=== PATIENT | female | born 1985 | race Caucasian/White ===

== ENCOUNTER 2020-12-29 10:35 | Outpatient (REF) | payer OTHER, SELFPAY ==
[2020-12-29 11:39] LABS: MANUAL DIFF FLAG NO
[2020-12-29 11:44] LABS: Basophils Percent Auto 0.2 % (0-2); Eosinophils Absolute Auto 0.1 X10*3/uL (0.0-0.4); Eosinophils Percent Auto 1.1 % (0-4); Hematocrit 41.9 % (37-47); Hemoglobin 13.5 g/dl (12.0-16.0); Imm Gran Abs Auto 0.06 X10*3/uL (0.00-0.03); Imm Gran Pct Auto 0.5 % (0.0-0.4); Lymphocytes Absolute Auto 2.4 X10*3/uL (1.2-4.9); Lymphocytes Percent Auto 19.7 % (20-40); Mean Corpuscular HGB Conc 32.2 g/dl (31.0-35.0); Mean Corpuscular Hemoglobin 29.6 pg (27.0-33.0); Mean Corpuscular Volume 91.9 fL (80-98); Mean Platelet Volume 10.1 fL (9.4-12.3); Monocytes Absolute Auto 1.2 X10*3/uL (0.1-1.2); Monocytes Percent Auto 9.5 % (2-11); Neutrophils Absolute Auto 8.4 X10*3/uL (2.0-8.3); Platelet Count 311 X10*3/uL (160-400); Red Blood Count 4.56 X10*6/uL (4.20-5.50); Red Cell Distribution Width 13.5 % (11.0-16.0); White Blood Count 12.2 X10*3/uL (4.8-10.8)
[2020-12-29 11:58] LABS: Glucose Urine UA NEG (NEG); Leukocyte Esterase Urine NEG (NEG); Nitrite Urine NEG (NEG); PH 5.5 (5.0-8.0); Specific Gravity - Urine 1.025 (1.005-1.025); Urine Blood 1+ (NEG); Urine Ketones NEG (NEG); Urine Protein NEG (NEG-TRACE)
[2020-12-29 11:59] LABS: Appearance Urine HAZY; Color Urine YELLOW
[2020-12-29 12:12] LABS: Bacteria Urine 1+ /LPF; Squamous Epithelial Cell Urine 1+ /LPF; WBC Urine 0-2 /HPF (0-4)
[2020-12-29 12:21] LABS: Creatinine Urine 228.65 mg/dL; Microalbum/Creatinine Ratio Ur 26.6 ug/mg cr; Protein/Creatinine Ratio, Ur 0.07 (<0.2); Total Protein Urine Random 17 mg/dL (<12)
[2020-12-29 12:40] LABS: Anion Gap 12 (12-20); Blood Urea Nitrogen 10 mg/dL (9-16); Calcium 8.7 mg/dL (8.4-10.2); Carbon Dioxide 30 mmol/L (22-29); Chloride 102 mmol/L (96-108); Estimated Glomerular Filt Rate > 60; Potassium 3.6 mmol/L (3.3-5.1); Sodium 140 mmol/L (135-145)
[2020-12-31 04:10] LABS: ~Hepatitis B Surface Antibody REACTIVE (Nonreactive)
[2020-12-31 04:20] LABS: HBsAGNum1 0.28 S/CO (0.00-0.99); Hepatitis B Surface Antigen Negative (Negative); ~HepC Num1 0.09 S/CO (0.00-0.79); ~Hepatitis C Antibody Nonreactive (Nonreactive)
[2020-12-31 14:12] LABS: Complement C3 186 mg/dL (83-193)
[2020-12-31 15:22] LABS: Prot Elec - Albumin 3.5 g/dL (3.8-4.8); Prot Elec - Alpha1 0.4 g/dL (0.2-0.3); Prot Elec - Alpha2 0.9 g/dL (0.5-0.9); Prot Elec - Beta 1 0.4 g/dL (0.4-0.6); Prot Elec - Beta 2 0.4 g/dL (0.2-0.5); Prot Elec - Gamma 1.3 g/dL (0.8-1.7); Prot Elec - Total Protein 6.9 g/dL (6.1-8.1)
[2021-01-01 09:56] LABS: Anti Nuclear Antibody Screen NEGATIVE (NEGATIVE)
[2021-01-01 13:32] LABS: Kappa Light Chain, Free Serum 20.3 mg/L (3.3-19.4); Kappa/Lambda Lt Ch Free Ratio 0.93 (0.26-1.65); Lambda Light Chain, Free Serum 21.9 mg/L (5.7-26.3)
[2021-01-03 14:02] LABS: Myeloperoxidase Antibody <1.0 AI; Proteinase 3 PR3 Antibodies <1.0 AI
== END 2020-12-29 10:36 | disposition home or self-care (01) ==
LOC: HO.LAB 10:35
PROVIDERS: PCP Family Medicine; Visit Provider Internal Medicine Nephrology
DX: K76.0 Fatty (change of) liver, not elsewhere classified (principal); G13.0 Paraneoplastic neuromyopathy and neuropathy; D69.0 Allergic purpura; N02.8 Recurrent and persistent hematuria with other morphologic changes
CPT/HCPCS: 36415; 80051; 81001; 82043; 82310; 82565; 83520; 83883; 84155; 84156; 84165; 84520; 85025; 86021; 86038; 86039; 86160; 86706; 86803; 87086; 87340

== ENCOUNTER 2021-01-18 13:23 | Outpatient (REF) | payer OTHER, SELFPAY ==
[2021-01-18 14:15] LABS: Glucose Urine UA NEG (NEG); Leukocyte Esterase Urine NEG (NEG); Nitrite Urine NEG (NEG); Specific Gravity - Urine 1.025 (1.005-1.025); Urine Blood 1+ (NEG); Urine Ketones NEG (NEG); Urine Protein NEG (NEG-TRACE)
[2021-01-18 14:17] LABS: Appearance Urine CLEAR; Color Urine YELLOW
[2021-01-18 14:34] LABS: Bacteria Urine TRACE /LPF; Squamous Epithelial Cell Urine 1+ /LPF; WBC Urine 0 /HPF (0-4)
[2021-01-18 14:55] LABS: Alanine Aminotransferase 16 U/L (0-31); Albumin Level 3.5 g/dL (3.5-5.0); Alkaline Phosphatase 81 U/L (39-117); Anion Gap 12 (12-20); Aspartate Amino Transferase 13 U/L (5-31); Bilirubin Total 0.4 mg/dL (0.0-1.0); Blood Urea Nitrogen 8 mg/dL (9-16); Calcium 8.5 mg/dL (8.4-10.2); Carbon Dioxide 28 mmol/L (22-29); Chloride 104 mmol/L (96-108); Estimated Glomerular Filt Rate > 60; Glucose Random 99 mg/dL (60-115); Potassium 4.1 mmol/L (3.3-5.1); Sodium 140 mmol/L (135-145); Total Protein 6.7 g/dL (6.5-8.0)
== END 2021-01-18 13:24 | disposition home or self-care (01) ==
LOC: HO.LAB 13:23
PROVIDERS: PCP Family Medicine; Visit Provider Family Medicine
DX: N02.8 Recurrent and persistent hematuria with other morphologic changes (principal)
CPT/HCPCS: 36415; 80053; 81001

== ENCOUNTER 2021-02-08 12:17 | Outpatient (REF) | payer OTHER, MEDICAID, SELFPAY ==
[2021-02-08 13:31] LABS: MANUAL DIFF FLAG NO
[2021-02-08 13:33] LABS: Basophils Percent Auto 0.2 % (0-2); Eosinophils Absolute Auto 0.1 X10*3/uL (0.0-0.4); Eosinophils Percent Auto 1.1 % (0-4); Hematocrit 43.7 % (37-47); Hemoglobin 13.5 g/dl (12.0-16.0); Imm Gran Abs Auto 0.05 X10*3/uL (0.00-0.03); Imm Gran Pct Auto 0.5 % (0.0-0.4); Lymphocytes Absolute Auto 2.9 X10*3/uL (1.2-4.9); Lymphocytes Percent Auto 27.7 % (20-40); Mean Corpuscular HGB Conc 30.9 g/dl (31.0-35.0); Mean Corpuscular Volume 93.8 fL (80-98); Mean Platelet Volume 9.8 fL (9.4-12.3); Monocytes Absolute Auto 0.9 X10*3/uL (0.1-1.2); Monocytes Percent Auto 8.5 % (2-11); Neutrophils Absolute Auto 6.5 X10*3/uL (2.0-8.3); Platelet Count 315 X10*3/uL (160-400); Red Blood Count 4.66 X10*6/uL (4.20-5.50); Red Cell Distribution Width 12.8 % (11.0-16.0); White Blood Count 10.4 X10*3/uL (4.8-10.8)
[2021-02-08 14:02] LABS: Alanine Aminotransferase 20 U/L (0-31); Albumin Level 3.7 g/dL (3.5-5.0); Alkaline Phosphatase 89 U/L (39-117); Anion Gap 15 (12-20); Aspartate Amino Transferase 16 U/L (5-31); Bilirubin Total 0.3 mg/dL (0.0-1.0); Blood Urea Nitrogen 8 mg/dL (9-16); Carbon Dioxide 27 mmol/L (22-29); Chloride 103 mmol/L (96-108); Estimated Glomerular Filt Rate > 60; Glucose Random 93 mg/dL (60-115); Potassium 4.1 mmol/L (3.3-5.1); Sodium 141 mmol/L (135-145); Total Protein 7.1 g/dL (6.5-8.0)
[2021-02-08 14:09] LABS: Glucose Urine UA NEG (NEG); Leukocyte Esterase Urine TRACE (NEG); Nitrite Urine NEG (NEG); PH 5.5 (5.0-8.0); Specific Gravity - Urine 1.025 (1.005-1.025); UACC Culture Trigger YES; Urine Blood 1+ (NEG); Urine Ketones NEG (NEG); Urine Protein NEG (NEG-TRACE)
[2021-02-08 14:15] LABS: Appearance Urine CLOUDY; Color Urine YELLOW
[2021-02-08 14:24] LABS: Bacteria Urine 2+ /LPF; Squamous Epithelial Cell Urine 3+ /LPF
== END 2021-02-08 12:18 | disposition home or self-care (01) ==
LOC: HO.LAB 12:17
PROVIDERS: PCP Family Medicine; Visit Provider Family Medicine
DX: D69.0 Allergic purpura (principal)
CPT/HCPCS: 36415; 80053; 81001; 81003; 85025; 87086

== ENCOUNTER 2021-03-13 07:42 | Outpatient (REF) | payer OTHER, MEDICAID, SELFPAY | END 2021-03-13 07:43 | disposition home or self-care (01) | LOC: HO.HOSX 07:42 | PROVIDERS: Visit Provider Physician Assistant | DX: Z13.89 Encounter for screening for other disorder (principal) ==

== ENCOUNTER 2022-05-27 09:39 | Emergency (ER) | payer OTHER, SELFPAY ==
--- NOTE | ~2022-05-27 | XR_ITS ---
EXAMINATION: XR KNEE, RIGHT CLINICAL INFORMATION: Right knee injury. COMPARISON: None TECHNIQUE: Four views of the right knee. FINDINGS: Minimal tricompartmental degenerative joint changes are seen. There is no acute fracture or dislocation. There is no joint effusion. The soft tissues are unremarkable. XR/XR knee RT 4V IMPRESSION: Minimal tricompartmental degenerative joint changes. No acute abnormality.
[2022-05-27 10:58] VITALS: BP 137/96; PULSE 90; RESP 18; TEMP 35.8; O2SAT 95; BMI 49.4
--- NOTE | 2022-05-27 12:32 | ED_ITS ---
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 Denies symptoms prior to fall including headache, lightheadedness/dizziness, CP/SOB. Denies head trauma or LOC. Has not been ambulatory since the incident. Denies numbness or tingling MD complaint: knee injury and fall Onset (ago): hour(s) Related Data Allergies Allergy/AdvReac Type Severity Reaction Status Date / Time NSAIDS (Non-Steroidal Allergy Unknown Verified 05/27/22 10:57 Anti-Inflamma Review of Systems Review of Systems: Constitutional: No Fever, No Chills ENT/Mouth: No Ear Pain, No Nasal Congestion, No sore throat, No Rhinorrhea, No Swallowing Difficulty Cardiovascular: No Chest Pain, No SOB Respiratory: No Cough, No Sputum, No Wheezing Gastrointestinal: No Nausea, No Vomiting, No Diarrhea, No Constipation, No Abdominal pain Genitourinary: No Dysuria, No Urinary Frequency, No Hematuria, No Urinary Incontinence/retention Musculoskeletal: + joint pain, No Myalgias, + Joint Swelling Skin: No Skin Lesions, No rash Neuro: No Weakness, No Numbness, No Paresthesias Yes all other systems are revi ewed and are negative Constitutional: Constitutional: Reports as per [facility] Past Medical History Attestation statement: The following information was validated with the patient. Social History Social History Advance Directives: No Advance Directives Information Provided: Yes Physical Exam Vital Signs: Vital Signs: Last Vital Signs Temp 96.4 F L 05/27/22 10:58 Pulse 90 05/27/22 10:58 Resp 18 05/27/22 10:58 BP 137/96 H 05/27/22 10:58 Pulse Ox 95 05/27/22 10:58 BMI result Body Mass Index 49.4 Const: General: cooperative, healthy appearing and no acute distress Orientation/consciousness: patient oriented x3 Limitations: no limitations HEENT: Head: Yes normal to inspection and Yes atraumatic Ears: hearing grossly normal bilaterally General nose exam: Normal external nose present Face and sinus: Yes normal facial exam Eyes: General: appearance normal, both eyes and all related structures EOM: EOMs intact bilaterally Neck: Neck: Yes normal visual inspection and Yes no meningeal signs Resp: Effort & Inspection: normal respiratory effort and no respiratory distress Cardio: Rate: regular rate Heart sounds: S1 normal heart sound present and S2 normal heart sound present Peripheral pulses: dorsalis pedis present GI: Inspection: Yes normal to inspection Palpation (GI): Soft to palpation, nontender, no guarding and not rigid Skin: Rashes: no rashes Wounds: no wounds Neuro: General: patient oriented x3, tone normal and no meningeal signs Gait exam (Neuro): Normal gait present Extrem: Other: Right knee with mild swelling and superficial abrasion. Diffusely tender to palpation. Limited flexion secondary to pain. Extension intact. Neurovascular intact distally. No erythema/warmth Course Course Course Narrative: XR knee RT 4V IMPRESSION: Minimal tricompartmental degenerative joint changes. No acute abnormality. > results discussed with patient. Leonardo wrap applied for comfort and stability. Patient also given crutches. Results discussed with patient including worrisome signs and symptoms and strict return precautions, and when to return to the emergency department. They verbalized understanding and feel safe for discharge at this time. 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 On exam vital signs stable, NAD, nontoxic appearing, physical exam as above. Concern for fracture versus sprain. Plan: X-rays Medical Records Attestation: I reviewed the patient's medical records. Lab Data Attestation: I reviewed the patient's lab results. Discharge Plan Discharge Clinical Impression: Injury of knee Patient Disposition: Home, Self-Care Instructions: Crutch Instructions (ED) Additional Instructions: Your x-ray does not show fracture. Wear Leonardo wrap home for comfort and stability. Ice. Elevate. Take Tylenol for pain. Use crutches as needed. Bear weight as tolerated. Please follow-up with her doctor, and orthopedics as needed If pain persists or worsens/becomes unbearable return to the emergency department Referrals: Lito Al MD [Physician] - 1 week (as needed) Physician,Sekou J [Primary Care Provider] - Stand Alone Forms: Work/School Release Interventions: ED Discharge Assessment Last Done: 05/27/22 13:16
[2022-05-27] MEDS: Acetaminophen 325 MG TABLET 650 MG PO (13:11)
--- NOTE | 2022-05-27 13:22 | PC.NURSE ---
case management to meet with patient to assist in ride home
--- NOTE | 2022-05-27 13:53 | MHC.CM.ED ---
Received notification from MARGARITA Palomino that patient will need transportation home. Patient is hearing impaired and currently on crutches due to a knee injury. Tranpsortation booked through [employer]. Transport will be here around 315pm. They will call at [phone] upon arrival. Patient will need to get to vehicle at that time. Georgette AVILA aware. Continue to monitor for d/c needs.
== END 2022-05-27 14:14 | disposition home or self-care (01) ==
PROVIDERS: Emergency Provider Emergency Medicine Emergency Medical Services
DX: S89.91XA Unspecified injury of right lower leg, initial encounter (principal); W19.XXXA Unspecified fall, initial encounter; Y93.9 Activity, unspecified; Y92.9 Unspecified place or not applicable; Y99.9 Unspecified external cause status
CPT/HCPCS: 73564; 99283

== ENCOUNTER → 2022-07-25 12:30 | Outpatient (BNVA) | payer OTHER, MEDICAID, SELFPAY | PROVIDERS: PCP Family Medicine; Visit Provider Physician Assistant | DX: M17.11 Unilateral primary osteoarthritis, right knee (principal) | CPT/HCPCS: 20610; J1040 ==

== ENCOUNTER 2022-08-29 15:00 | Outpatient (RCR) | payer OTHER, MEDICAID, SELFPAY ==
--- NOTE | 2022-08-13 13:28 | MHC.PT.EP ---
[facility] [place] Office [place] Office [place] Office [address] Liz Galvan [address] [phone] F: [phone] F: [phone] F: [phone] F: [phone] Physical Therapy Plan of Care Date of Evaluation: Date of Surgery: N/A Diagnosis: patellefemoral right knee (RC) Assessment: pt is a 36 y/o female presenting to physical therapy w/ referring diagnosis of R patellofemoral pain syndrome. Impairments include pain, decreased range of motion, decreased strength, impaired functional mobility, impaired postural awareness, and altered ambulation mechanics. pt is a good candidate for skilled PT due to age, potential remediation of impairments, typical disease/condition progression and prognosis, comorbidities, and motivation. pt would benefit from skilled PT intervention to provide a tailored strengthening and stretching exercise program, functional training, gait training, postural re-training, neuromuscular re-education, modalities as needed for pain, equipment safety demonstration. Frequency and Duration: The patient will be seen 2x/wk for 4 wks Short Term Goals: pt will be I w/ HEP to promote self-management of condition. pt will improve R quad strength by 1 MMT to promote improved patellar mobility w/ stairs and ambulation. Nursing Home Goals: pt will report a statistically significant improvement in self-reported outcome measure, LEFI, to promote return to PLOF. 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 Treatment Plan: Modalities to reduce pain, spasms and effusion. Manual therapy to restore motion and function. Therapeutic exercise to improve strength and flexibility. Neuromuscular re-education for posture and balance. Therapeutic activities to return to functional activities of daily living. Electronically signed by: Nickie Acosta PT, DPT Please sign and return to therapist. Thank you for your referral.
--- NOTE | 2022-09-15 18:05 | MHC.PT.DC ---
[facility] [place] Office [place] Office [place] Office [address] Liz Galvan [address] [phone] F: [phone] F: [phone] F: [phone] F: [phone] Physical Therapy Discharge Report Diagnosis: patellefemoral right knee (RC) Date of Surgery: N/A Date of Evaluation: 08/13/22 Date of Discharge: 09/15/22 Treatments to Date: 2 Cancellations to Date: 1 No Shows to Date: 3 Discharge Status: Visit Non-compliance Discharge Summary: The patient has had multiple no call/no shows for her scheduled appointments. She has been accommodated multiple times but has still failed to attend her visits. She was called and spoken to using an financial counselor to reschedule and confirm her appointments to ensure they met her availability. She still continued to no show her appointments. In a month's time she has only attended two visits as opposed to the twice a week that was recommended at the initial evaluation. She is being discharged from this physical therapy plan of care due to visit non-compliance. Her current status is unknown. At time of last visit (over two weeks ago) her pain was the same. She is discharged from physical therapy at this time. Electronically signed by: Nickie Acosta PT, DPT Please sign and return to therapist. Thank you for your referral.
== END 2022-09-15 18:05 | disposition home or self-care (01) ==
LOC: HO.PT 15:00
PROVIDERS: Visit Provider Physician Assistant
DX: M17.11 Unilateral primary osteoarthritis, right knee (principal)
CPT/HCPCS: 97110; 97140; 97162

== ENCOUNTER → 2023-03-04 12:26 | Outpatient (BNVA) | payer OTHER, MEDICAID, SELFPAY | PROVIDERS: PCP Family Medicine; Visit Provider Physician Assistant | DX: M17.0 Bilateral primary osteoarthritis of knee (principal); D69.0 Allergic purpura | CPT/HCPCS: 20610; 99212; J1040 ==

== ENCOUNTER 2024-01-29 11:34 | Outpatient (REF) | payer OTHER, MEDICAID, SELFPAY ==
[2024-01-29 14:26] LABS: Alanine Aminotransferase 16 U/L (0-31); Albumin Level 3.6 g/dL (3.5-5.0); Alkaline Phosphatase 80 U/L (39-117); Anion Gap 11 (12-20); Aspartate Amino Transferase 15 U/L (5-31); Bilirubin Direct 0.1 mg/dL (0.0-0.5); Bilirubin Total 0.3 mg/dL (0.0-1.0); Blood Urea Nitrogen 8 mg/dL (9-16); Calcium 9.1 mg/dL (8.4-10.2); Carbon Dioxide 27 mmol/L (22-29); Chloride 105 mmol/L (96-108); Cholesterol 163 mg/dL (<200); Estimated Glomerular Filt Rate > 60; Glucose Random 89 mg/dL (60-115); HDL Cholesterol 45 mg/dL (>40); LDL Cholesterol Calculated 100 mg/dL (<100); Potassium 3.7 mmol/L (3.3-5.1); Sodium 139 mmol/L (135-145); Total Protein 7.7 g/dL (6.5-8.0); Triglycerides 90 mg/dL (<150); Vitamin D 25-OH Total 35.4 ng/mL (>30)
[2024-01-29 14:31] LABS: Creatinine Urine 132.68 mg/dL; Microalbum/Creatinine Ratio Ur 36.9 ug/mg cr (<30)
== END 2024-01-29 11:35 | disposition home or self-care (01) ==
LOC: HO.HHCL 11:34
PROVIDERS: Visit Provider Family Medicine
DX: N02.B9 Other recurrent and persistent immunoglobulin A nephropathy (principal); E78.5 Hyperlipidemia, unspecified; E55.9 Vitamin D deficiency, unspecified
CPT/HCPCS: 36415; 80048; 80061; 80076; 82043; 82306; 82570

== ENCOUNTER 2024-11-25 11:40 | Outpatient (REF) | payer OTHER, MEDICAID, SELFPAY ==
--- OUTSIDE RECORDS SUMMARY | 2024-11-25 12:23 | XMS_ITS | Data Portability ---
Author Organization SANDRA Rojas s [facility] Address [address] [place] [address] Assessment No assessment recorded. Plan of Treatment Reminders Order Date Submit Date Provider Last Modified By Organization Details Last Modified Time Details Appointments None recorded. Lab rapid flu (A+B) 2023 024 BROSELEY [facility] [address], [address] [place], [address], 4 10:56:33 SARS CoV 2 (COVID-19) Ag, QL, IA, upper respiratory specimen 2023 024 BROSELEY _[facility] [address], [address] [place], [address], 4 10:58:20 rapid strep group A, throat 2023 024 BROSELEY _[facility] [address], [address] [place], [address], 4 10:59:14 rapid flu (A+B) 2023 024 MARILYNN _[facility] [address], [address] [place], [address], 4 14:07:09 SARS CoV 2 (COVID-19) Ag, QL, IA, upper respiratory specimen 2023 024 BROSELEY _[facility] [address], [address] [place] [address], [phone], 14:07:22 Referral None recorded. Procedures None recorded. Surgeries None recorded. Imaging None recorded. Medication Orders None recorded. Patient TargetsNo targets recorded. Patient Instructions Encounter Date Encounter Id Patient Instructions Last Modified By Organization Details Last Modified Time 12/01/2023 [id number] sore throat: car e instructions Not available 12/01/2023 19:18:21 upper respirator y infection (cold): care instructions Not available 12/01/2023 19:18:21 02/15/2024 [id number] viral infections : care instructions [email or web address] Not available 02/15/2024 14:18:40 Acute Sinusitis: Care Instructions [email or web address] Not available 02/15/2024 14:18:40 sinusitis, no antibiotics [email or web address] Not available 02/15/2024 14:18:40 cough: care instructions [email or web address] Not available 02/15/2024 14:18:39 Rest. Drink plenty of fluids. Over the counter mucinex may be taken for congestion and tylenol for pain or fever if needed. Take per package instructions. Nutritional supplements that may be beneficial for viral infections include: Vitamin D3, Vitamin C, zinc and elderberry. See printed instructions., Follow-up with your doctor or return to [facility] if your symptoms do not resolve in one week. Seek Emergency Medical evaluation for any worsening symptoms, particularly for high fever, shaking chills, severe headache, rash, stiff neck, shortness of breath, chest pain not associated with cough, abdominal pain, blood in your stool, intractable vomiting. [email or web address] Not available 02/15/2024 14:20:57 Reason for Referral None Reported. Results Created Date Observation Date Name Description Value Unit Range Abnormal Flag Note LastModifiedBy Organization Detail LastModifiedTime 12/07/1912/07/2023 rapid strep group A, throa t Unknown Analyte negati ve Not Available [id number] [place], [address], 12/01/2023 19:04:45 12/07/1912/07/2023 rapid strep group A, throa t Unknown Analyte yes Not Available [facility] [address] [place], [address], 12/01/2023 19:04:45 12/07/19 24 12/07/2023 SARS CoV 2 (COVI D-19) Ag, QL, IA, upper respi rator y speci men Unknown Analyte negati ve Not Available [facility] [address] [place], [address], 12/01/2023 19:04:39 12/07/19 24 12/07/2023 SARS CoV 2 (COVI D-19) Ag, QL, IA, upper respi rator y speci men Unknown Analyte YES Not Available [id number] [place] [address] [address] [place], [address], 12/01/2023 19:04:39 12/07/19 24 12/07/2023 rapid flu (A+B) Unknown Analyte negati ve Not Available [facility] [address] [place], [address], 12/01/2023 19:04:31 12/07/19 24 12/07/2023 rapid flu (A+B) Unknown Analyte negati ve Not Available [facility] [place] [address], [phone], 12/01/2023 19:04:31 12/07/19 24 12/07/2023 rapid flu (A+B) Unknown Analyte yes Not Available [facility] [address] [place], [address], 12/01/2023 19:04:31 02/15/20 24 02/15/2024 SARS CoV 2 (COVI D-19) Ag, QL, IA, upper respi rator y speci men Unknown Analyte negati ve Not Available [facility] [place], [address], 02/15/2024 13:52:18 02/15/20 24 02/15/2024 SARS CoV 2 (COVI D-19) Ag, QL, IA, upper respi rator y speci men Unknown Analyte YES Not Available [id number] [place] [address] [place] [address], [phone], 02/15/2024 13:52:18 02/15/20 24 02/15/2024 rapid flu (A+B) Unknown Analyte negati ve Not Available [address] [address] [place] [address], [address], 02/15/2024 13:52:17 02/15/20 24 02/15/2024 rapid flu (A+B) Unknown Analyte Not Available [id number] [place] [address] [place] [address], [phone], 02/15/2024 13:52:17 02/15/20 24 02/15/2024 rapid flu (A+B) Unknown Analyte negati ve Not Available [address] [facility] [address] [place] [address], [address], 02/15/2024 13:52:17 02/15/20 24 02/15/2024 rapid flu (A+B) Unknown Analyte YES Not Available [id number] [place] [address] [place] [address], [phone], 02/15/2024 13:52:17 Result Notes None recorded. Problems Name Problem SNOMED Code Status Onset Date Resolution Date Notes Provider Name and Address Organization Details Recorded Time Anxiety 45005539 Active SANDRA Elkins - [facility] 12/01/2023 19:00:00 Problem Notes None recorded. Medical Equipment None Reported. Allergies Allergen ID Allergen Name Allergen Category Reaction Reaction Severity Criticality Documentation Date Start Date Code Code System Note Provider Name and Address Organization Details Recorded Time 615449 Non-stero idal anti-infl ammatory agent (product) medicatio n Not available Not available Not available 02/15/2024 13789 005 SNOMED Cate simmons PA - [facility] 13:36:32 Medications Name Sig Start Date Stop Date Status Note LastModified by Organization Details LastModified Time clonazepam active Not Available Not Av ailable Not Available Vitals Date Recorded Body height Provider Name an d Address Organization Details Last Updated DateTime 12/01/2023 162.56 cm Ingrid Ward PA - [facility] 12/01/2023 18:54:08 Date Recorded Body mass index (BMI) Body weight Provider Name and Address Organization Details Last Updated DateTime 12/01/2023 45.5 kg/m2 718080.98 g Ingrid FLORES - [facility] 12/01/2023 18:54:14 Date Recorded Body temperature Provider Name a nd Address Organization Details Last Updated DateTime 12/01/2023 97.9 [degF] Ingrid Ward PA - [facility] 12/01/2023 18:58:06 Date Recorded Pain severity - 0-10 verbal numeric rating [Score] - Reported Provider Name and Address Organization Details Last Updated DateTime 12/01/2023 7 Ingrid Ward PA - [facility] 12/01/2023 18:58:52 Date Recorded Oxygen saturation Oxygen saturation in Arterial blood by Pulse oximetry Provider Name and Address Organization Details Last Updated DateTime 12/01/2023 98 % 98 % Ingrid Ward PA - [facility] 12/01/2023 18:58:54 Date Recorded Heart rate Provider Name an d Address Organization Details Last Updated DateTime 12/01/2023 78 /min Ingrid Ward PA - [facility] 12/01/2023 18:58:58 Date Recorded Respiratory rate Provider Name a nd Address Organization Details Last Updated DateTime 12/01/2023 18 /min Ingrid Ward PA - [facility] 12/01/2023 18:59:01 Date Recorded Body height Provider Name an d Address Organization Details Last Updated DateTime 02/15/2024 162.56 cm Cate FLORES - [facility] 0 02/15/2024 13:35:14 Date Recorded Body mass index (BMI) Body weight Provider Name and Address Organization Details Last Updated DateTime 02/15/2024 45 kg/m2 005337.2 g Cate Mota PA - [facility] 02/15/2024 13:35:29 Date Recorded Oxygen saturation Oxygen saturation in Arterial blood by Pulse oximetry Provider Name and Address Organization Details Last Updated DateTime 02/15/2024 97 % 97 % Catejacquelin Mota PA - [facility] 02/15/2024 13:35:52 Date Recorded Heart rate Provider Name an d Address Organization Details Last Updated DateTime 02/15/2024 82 /min Catejacquelin Mota PA - [facility] 0 02/15/2024 13:35:58 Date Recorded Respiratory rate Provider Name a nd Address Organization Details Last Updated DateTime 02/15/2024 18 /min Catejacquelin Mota PA - [facility] 0 02/15/2024 13:36:05 Date Recorded Body temperature Provider Name a nd Address Organization Details Last Updated DateTime 02/15/2024 98.1 [degF] Catejacquelin Mota PA - [facility] 02/15/2024 13:36:11 Date Recorded Systolic blood pressure Diastolic blood pressure Provider Name and Address Organization Details Last Updated DateTime 12/01/2023 123 mm[Hg] 84 mm[Hg] Ingrid Ward PA - [facility] 12/01/2023 18:58:25 Date Recorded Systolic blood pressure Diastolic blood pressure Provider Name and Address Organization Details Last Updated DateTime 02/15/2024 135 mm[Hg] 85 mm[Hg] Catejacquelin Mota PA - [facility] 02/15/2024 13:35:44 Social History Question Answer Notes LastModified by Organizat ion Details LastModified Time Tobacco Smoking Status Current Every Day Smoker Ingrid simmons PA - [facility] 12/01/2023 18:56:35 What Is Your Level Of Alcohol Consumption? None [email or web address] Information not available 12/01/2023 Have You Had A Flu Shot This Season? No [email or web address] Information not available 12/01/2023 Have You Had Direct Contact, Or Contact During Intimacy, With Monkeypox Rash, Scabs, Or Body Fluids From A Person With Monkeypox? No [email or web address] Information not available 12/01/2023 What Was The Date Of Your Most Recent Tobacco Screening? 02/15/2024 [email or web address] Information not available 02/15/2024 How Much Tobacco Do You Smoke? 1 PPW [email or web address] Information not available 12/01/2023 Do You Use Any Illicit Or Recreational Drugs? No [email or web address] Information not available 12/01/2023 Have You Recently Traveled Abroad? No Information not available 12/01/2023 Sex: Unknown Functional Status None recorded. Mental Status None recorded. Family History Nothing Reported. Medical History No medical history recorded. Gynecological History Statement/Question Response Date of LMP 10/30/2023 Is there any chance of ? No LMP Definite Obstetrics History GPAL:G 0 P 0 0 0 0 Immunizations Vaccine Type Date Status Note Provider Nam e and Address Organization Details Recorded Time Influenza, high-dose, quadrivalent, PF 2 completed Cate Nakul null, PA - [facility] 02/15/2024 13:36:15 MMR 9 completed Cate Nakul null, PA - [facility] 02/15/2024 13:36:15 COVID-19, mRNA, LNP-S, PF, 30 mcg/0.3 mL dose 1 completed Cate Nakul null, PA - [facility] 02/15/2024 13:36:15 COVID-19, mRNA, LNP-S, PF, 30 mcg/0.3 mL dose 1 completed Cate Nakul null, PA - [facility] 02/15/2024 13:36:15 COVID-19, mRNA, LNP-S, bivalent, PF, 30 mcg/0.3 mL dose 2 completed Cate Nakul null, PA - [facility] 02/15/2024 13:36:15 pneumococcal polysaccharide PPV23 7 completed Cate Nakul null, PA - [facility] 02/15/2024 13:36:15 Tdap 2 completed Cate Nakul null, PA - [facility] 02/15/2024 13:36:15 Influenza, split virus, trivalent, preservative 4 completed Cate Nakul null, PA - [facility] 02/15/2024 13:36:15 Influenza, split virus, trivalent, PF 7 completed Cate Nakul null, PA - [facility] 02/15/2024 13:36:15 Influenza, split virus, trivalent, PF 5 completed Cate Nakul null, PA - [facility] 02/15/2024 13:36:15 Hep B, adult 9 completed Cate Nakul null, PA - [facility] 02/15/2024 13:36:15 Hep B, adult 9 completed Cate Nakul null, PA - [facility] 02/15/2024 13:36:15 Influenza, split virus, quadrivalent, PF 0 completed Cate Nakul null, PA - [facility] 02/15/2024 13:36:15 Influenza, split virus, quadrivalent, PF 2 completed Cate Nakul null, PA - [facility] 02/15/2024 13:36:15 Hep A, unspecified formulation 4 completed Cate Nakul null, PA - [facility] 02/15/2024 13:36:15 Hep A, unspecified formulation 4 completed Cate Nakul null, PA - [facility] 02/15/2024 13:36:15 Past Encounters Encounter ID Performer Location Encounter Start Date Encounter Closed Date Diagnosis/Indication Diagnosis SNOMED-CT Code Diagnosis ICD10 Code Diagnosis Note [id number] [place] [address] 09/03/2020 09:02:14 09/03/2020 11:47:57 [id number] [place] [address] 08/29/2020 09:35:14 08/29/2020 12:45:21 [id number] [address] [place] [address] 08/23/2020 10:48:18 08/23/2020 12:37:27 [id number] [address] [address] [facility] [place] [address] 08/03/2021 12:53:19 08/03/2021 15:18:12 [id number] [facility] [address] [facility] [address] [facility] [place] [address] 09/12/2020 08:30:32 09/12/2020 10:31:37 [id number] SANDRA Monae [address] [facility] [address] [facility] [place] [address] 12/01/2023 18:43:15 12/01/2023 19:27:32 Upper respiratory infection 87556261 J06.9 Patient presented with symptoms of upper respirator y infection. Advised to drink plenty of fluids, run a cool-mist humidifier in room at night, gargle salt water for sore throat, and get plenty of rest. Patient should avoid over-exert ion and reduce exposure to irritants such as smoke, cold, dry air, and dust.Treat ment currently involves symptomati c relief. Nasal sprays like nasonex and flonase (or generic) as well as neti pot to help clear sinuses Patient may take acetaminop hen or ibuprofen as directed to reduce fever and body aches.Anti histamine and decongesta nt usage was discussed and recommenda tions made.Alejandro nt understood these instructio ns and will follow up in the office in 10 days to 2 weeks if symptoms not improving. ER if any shortness of breath/heath st pain or worsening. Thank you for using [facility] today, please feel free to contact our office if you have any questions or concerns. [id number] Anita Rodrgiuez MD [address] [facility] [address] [facility] [place], [place] [address] 02/15/2024 11:48:37 02/15/2024 14:29:25 Cough 75960065 R05.9 Viral syndrome 575892471 B34.9 Health Concerns Section Related Observation LastModified by Organization Hipolito beckwith LastModified Time None Recorded Concern Status LastModified by Organization Details LastModified Time None Recorded Advance Directives Directive None Recorded Payers Encounter Date Sequence Insurance Name Policy Number Policy Parkinson Covered Member ID Parkinson Member ID Guarantor Name 08/03/2021 1 [facility] Susie Blackwood [id number] Susie Blackwood 12/01/2023 1 [facility] [id number] Susie Blackwood [id number] Susie Blackwood 02/15/2024 1 [facility] [id number] Susie Blackwood [id number] Susie Blackwood Notes Date Note Type Note Provider Name and Address Organization Details Recorded Time 12/01/2023 text/html 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 38 y/o female woke up this morning with body aches, chills, fatigue. Went to work and felt worse through the day. SANDRA Monae [address] [place], [address], PA - [facility] 12/01/2023 19:22:20 02/15/2024 text/html CongestionNewR epo rted bypatient.Modifying FactorsOTC tylenol sinus medication. 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 Communication with patient done by writing. LocationBilateral Associated Symptomscough; Fever; runny nose; sore throat; moderate; Occasionally feels short of breath lying down due to nasal congestion. Post nasal drip. Feels some swelling in throat. Nausea, sinus pressure, diarrhea, body aches. Qualitypressure TimingConstant; Gradual Onset; 2 days.Notes:38 year old female presenting for evaluation of fever, sinus pressure, nasal congestion,, runny nose, post nasal drip, itchy ears, irritated throat that feels a little swollen, occasionally productive cough, nausea, mild diarrhea and body aches for the past 2 days. No chills, generalized headache, rash, stiff neck, chest pain. She occasionally feels short of breath lying down due to nasal congestion. No abdominal pain, vomiting, blood in stool. She has body aches. Anita Rodriguez MD [address] [place], [address], PA - [facility] 02/17/2024 08:55:48 OBGyn Episode No OBEpisode recorded.
[2024-11-25 13:35] LABS: MANUAL DIFF FLAG NO
[2024-11-25 13:52] LABS: Basophils Percent Auto 0.1 % (0-2); Eosinophils Absolute Auto 0.1 X10*3/uL (0.0-0.4); Eosinophils Percent Auto 0.6 % (0-4); Hematocrit 38.7 % (37.0-47.0); Hemoglobin 12.6 g/dl (12.0-16.0); Imm Gran Abs Auto 0.03 X10*3/uL (0.00-0.03); Imm Gran Pct Auto 0.4 % (0.0-0.4); Lymphocytes Absolute Auto 2.5 X10*3/uL (1.2-4.9); Lymphocytes Percent Auto 32.2 % (20-40); Mean Corpuscular HGB Conc 32.6 g/dl (31.0-35.0); Mean Corpuscular Hemoglobin 28.6 pg (27.0-33.0); Mean Platelet Volume 9.9 fL (9.4-12.3); Monocytes Absolute Auto 0.7 X10*3/uL (0.1-1.2); Monocytes Percent Auto 9.1 % (2-11); Neutrophils Absolute Auto 4.5 x10*3/uL (2.0-8.3); Neutrophils Percent Auto 57.6 % (45-73); Platelet Count 278 X10*3/uL (160-400); Red Cell Distribution Width 13.1 % (11.0-16.0); White Blood Count 7.8 X10*3/uL (4.8-10.8)
[2024-11-25 14:05] LABS: Anion Gap 11 (12-20); Blood Urea Nitrogen 7 mg/dL (9-16); Calcium 9.1 mg/dL (8.4-10.2); Carbon Dioxide 27 mmol/L (22-29); Chloride 106 mmol/L (96-108); Estimated Glomerular Filt Rate > 60; Glucose Random 89 mg/dL (60-115); Iron 51 mcg/dL (30-160); Percent Iron Saturation 21 % (15-50); Potassium 4.1 mmol/L (3.3-5.1); Sodium 140 mmol/L (135-145); Total Iron Binding Capacity 240 mcg/dL (228-428); Unsaturated Iron Binding 189 ug/dL
[2024-11-25 14:23] LABS: Ferritin 24 ng/mL (10-250)
[2024-11-25 14:34] LABS: Creatinine Urine 51.41 mg/dL; Microalbum/Creatinine Ratio Ur 36.9 ug/mg cr (<30)
== END 2024-11-25 11:41 | disposition home or self-care (01) ==
LOC: HO.HHCL 11:40
PROVIDERS: Visit Provider Family Medicine
DX: D69.0 Allergic purpura (principal); K64.9 Unspecified hemorrhoids
CPT/HCPCS: 36415; 80048; 82043; 82570; 82728; 83540; 85025

== ENCOUNTER 2024-11-28 09:40 | Outpatient (REF) | payer OTHER, MEDICAID, SELFPAY ==
--- OUTSIDE RECORDS SUMMARY | 2024-11-28 10:12 | XMS_ITS | Encounter Summary ---
Author Organization [employer] Address [address] [facility] [address] [place] [address] Care Team Providers Care Reservations Clerk Name Role Phone Gloria Irizarry MD Primary Care Provider [phone]- [phone] Encounter Details Date Type Department Care Team (Latest Contact Info) Description 11/25/2024 Travel Social History Tobacco Use Types Packs/Day Years Used Date Smoking Tobacco: Former Cigarettes Q uit: 05/27/2024 Passive Smoke Exposure: Past Smokeless Tobacco: Current Comments:Pt still vapes Depression Answer Date Recorded Patient Health Questionnaire-9 Score 1 11/25/2024 Patient Health Questionnaire-9 Score 1 11/25/2024 Last PHQ-9: Questionnaire Data Not on file 0 11/25/2024 Housing Stability Answer Date Recorded What is your housing situation today? I have lorenza maynard 11/25/[address] you li ve. Do you have problems with any of the following? None of the above 11/25/2024 Food Insecurity Answer Date Recorded Within the past 12 months, y ou worried that your food would run out before you got money to buy more: Never True 11/25/2024 Within the past 12 months,th e food you bought just didn't last and you didn't have enough money to get more: Never True Transportation Answer Date Recorded In the past 12 months, has l ack of transportation kept you from medical appts, meetings, work or from getting things needed for daily living? No 11/25/2024 Utilities Answer Date Recorded In the past 12 months, has t he electric, gas, oil or water company threatened to shut off services in your home? No 11/25/2024 Depression Answer Date Recorded Patient Health Questionnaire-2 Score 0 11/25/2024 Internet Access Answer Date Recorded Internet Access Q1 Yes 11/25/2024 Internet Access Q2 Not on file 11/25/2024 Comments Unknown Sex and Gender Information Value Date Recorded Sex Assigned at Female 08/25/2022 10:34 AM EDT Legal Sex Female 10:34 AM EDT Gender Identity Female 08/25/2022 10:34 AM EDT Sexual Orientation Lesbian or Robles 08/25/2022 10 :34 AM EDT documented as of this encounter Plan of Treatment Upcoming Encounters Date Type Department Care Team (Late st Contact Info) Description 12/26/2024 9:00 AM EST Office Visit [facility] [address] [place] [address] Gloria Irizarry MD [address] [place] [address] documented as of this encounter Visit Diagnoses Not on filedocumented in this encounter Additional Health Concerns Assessment Noted Time PHQ-9 Depression Total Score: 1 11/25/19 25 10:49 AM EST documented as of this encounter Care Teams Reservations Clerk Relationship Specialty Start Date End Date Gloria Irizarry MD [address] [place] [address] PCP - General Family Medicine 02/10/20 documented as of this encounter
--- OUTSIDE RECORDS SUMMARY | 2024-11-28 10:12 | XMS_ITS | Encounter Summary ---
Author Organization [employer] Address [address] [facility] [address] [place] [address] Care Team Providers Care Federal Judicial Law Clerk Name Role Phone Gloria Irizarry MD Primary Care Provider [phone]- [phone] Reason for Visit * Reason Comments Med Change Request Encounter Details Date Type Department Care Team ([facility] Contact Info) Description 11/25/2024 Refill [facility] [address] [place], [place] [phone] Gloria Irizarry MD [address] [place], [place] [phone] Gastroesophageal reflux disease, unspecified whether esophagitis present Social History Tobacco Use Types Packs/Day Years [...] Description 12/26/2024 9:00 AM EST Office Visit [facility] [address] [place] [address] Gloria Irizarry MD [address] [place] [address] documented as of this encounter Visit Diagnoses Diagnosis Gastroesophageal reflux disease, unspecified whether esophagitis present Dietary counseling Dietary surveillance and counseling Exercise counseling Class 3 severe obesity due to excess calories without serious comorbidity with body mass index (BMI) of 45.0 to 49.9 in adult (CMS/[facility]) documented in this encounter Additional Health Concerns Assessment Noted Time PHQ-9 Depression Total Score: 1 11/25/19 25 10:49 AM EST documented as of this encounter Care Teams [employer] Law Clerk Relationship Specialty Start Date End Date Gloria Irizarry MD [address] [place] [address] PCP - General Family Medicine 02/10/20 documented as of this encounter
--- OUTSIDE RECORDS SUMMARY | 2024-11-28 10:12 | XMS_ITS | Encounter Summary ---
Author Organization [employer] [facility] Address [address] [place] [address] [address] [address] Care Team Providers Care Distribution Manager Name Role Phone Gloria Irizarry MD Primary Care Provider [phone]- [phone] Reason for Visit * Reason Comments Med Refill Encounter Details Date Type Department Care Team (Late st Contact Info) Description 11/08/2024 Refill [facility] [address] [place] [phone] Gloria Irizarry MD [address] [place] [address] [phone] Allergic rhinitis, unspecified seasonality, unspecified trigger Social History Tobacco Use Types Packs/Day Years Used Date Smoking Tobacco: Former Cigarettes Comments Unknown Sex and Gender Information Value Date Recorded Sex Assigned at Female 08/25/2022 10:34 AM EDT Legal Sex Female 10:34 AM EDT Gender Identity Female 08/25/2022 10:34 AM EDT Sexual Orientation Lesbian or Robles 08/25/2022 10 :34 AM EDT documented as of this encounter Plan of Treatment Upcoming Encounters Date Type Department Care Team (Late Contact Info) Description 12/26/2024 9:00 AM EST Office Visit [facility] [address] [place] [address] [phone] Gloria Irizarry MD [address] [place] [phone] documented as of this encounter Visit Diagnoses Diagnosis Allergic rhinitis, unspecified seasonality, unspecified trigger Dietary counseling Dietary surveillance and counseling Exercise counseling Class 3 severe obesity due to excess calories without serious comorbidity with body mass index (BMI) of 45.0 to 49.9 in adult (CMS/[facility]) documented in this encounter Care Teams Distribution Manager Relationship Specialty Start Date End Date Gloria Irizarry MD [address] [place] [id number] PCP - General Family Medicine 02/10/20 documented as of this encounter
--- OUTSIDE RECORDS SUMMARY | 2024-11-28 10:12 | XMS_ITS | Encounter Summary ---
Author Organization [facility] Address [address] [place] [address] Phone Care Team Providers Care Employment Advisor Name Role Phone [place], Gloria Ty MD Primary Care Provider Santosh rudolph Encounter Details Date Type Department Care Team (Late st Contact Info) Description 01/22/2021 Orders Only [facility] [address] [place] [address] ProviderAnna MD [address] [place] [phone] Social History Tobacco Use Types Packs/Day Years Used Date Smoking Tobacco: Never Smokeless Tobacco: Never Comments Unknown Sex and Gender Information Value Date Recorded Sex Assigned at Not on file Legal Sex Female 12:58 PM EST Gender Identity Not on file Sexual Orientation Not on file COVID-19 Exposure Response Date Recorded In the last month, have you been in contact with someone who was confirmed or suspected to have Coronavirus / COVID-19? No / Unsure 12/27/2020 1:27 PM EST documented as of this encounter Plan of Treatment Not on file documented as of this encounter Procedures Procedure Name Priority Date/Time Associated Diagnosis Comments EXT RESULT ENTRY Routine 01/22/2021 EXT RESULT ENTRY Routine 01/22/2021 documented in this encounter Results * EXT RESULT ENTRY (01/22/2021) Historical Provider LAB BLOOD ORDERABLES Alla l Result * EXT RESULT ENTRY (01/22/2021) Historical Provider LAB BLOOD ORDERABLES Alla l Result documented in this encounter Visit Diagnoses Not on filedocumented in this encounter Care Teams Employment Advisor Relationship Specialty Start Date End Date [place], Gloria Ty MD PCP - General Family Medicine 12/27/20 05/01/21 documented as of this encounter
--- OUTSIDE RECORDS SUMMARY | 2024-11-28 10:12 | XMS_ITS | Encounter Summary ---
Author Organization [employer] Address [address] [facility] [address] [place] [address] Care Team Providers Care Sales Officer Name Role Phone Gloria Irizarry MD Primary Care Provider [phone]- [phone] Reason for Visit * Reason Onset Date Comments Medication Question 05/26/2023 Encounter Details Date Type Department Care Team ([facility] Contact Info) Description 05/26/2023 Telephone [facility] [address] [place], [place] [phone] Gloria Irizarry MD [address] [place], [place] [phone] Medication Question Social History Tobacco Use Types Packs/Day Years Used Date Smoking Tobacco: Never Assessed Comments Unknown Sex and Gender Information Value Date Recorded Sex Assigned at Female 08/25/2022 10:34 AM EDT Legal Sex Female 10:34 AM EDT Gender Identity Female 08/25/2022 10:34 AM EDT Sexual Orientation Lesbian or Robles 08/25/2022 10 :34 AM EDT documented as of this encounter Miscellaneous Notes * Telephone Encounter - Nacho Klein - 05/26/2023 10:29 AM EDT Tc from pt requesting a new script for water pill, states they have leg swelling however has discussed before with PCP , pt stated [place] and will be turning on 05/29/23 and would like to know if PCP can prescribes medication until pt returns. Please contact at [phone] Cuban documented in this encounter Plan of Treatment Upcoming Encounters Date Type Department Care Team (Late st Contact Info) Description 12/26/2024 9:00 AM EST Office Visit [facility] [address] [place] [address] Gloria Irizarry MD [address] [place] [address] documented as of this encounter Visit Diagnoses Not on filedocumented in this encounter Care Teams Sales Officer Relationship Specialty Start Date End Date Gloria Irizarry MD [address] [place] [address] [phone] PCP - General Family Medicine 02/10/20 documented as of this encounter
--- OUTSIDE RECORDS SUMMARY | 2024-11-28 10:12 | XMS_ITS | Clinical Summary ---
Author Organization [facility] Facility Address [address] [place] [phone] Care Team Providers Care Nickel Operator Name Role Phone Unavailable Primary Care Provider Unavailabl e Allergies Active Allergy Reactions Criticality Noted Date Comments Nsaids 12/06/2019 Sulfa Antibiotics 12/06/2019 Medications naproxen (NAPROSYN) 500 MG tablet 12/27/2020 Active hydrOXYzine (ATARAX) 25 MG tablet TAKE 1 TABLET BY MOUTH 3 TIMES A DAY NEEDED FOR ITCHING 12/27/2020 Active clonazePAM (KlonoPIN) 0.5 MG tablet Take 0.5 mg by mouth at bed time 12/23/2020 Active buPROPion XL (WELLBUTRIN XL) 150 MG 24 hr tablet Take 150 mg by mouth 1 (one) time each day 01/14/2021 Active Active Problems Problem Noted Date Diagnosed Date O/E - deaf 12/27/2020 IgA nephropathy 12/27/2020 Resolved Problems Problem Noted Date Diagnosed Date Resolved Date Obesity 12/30/2020 06/17/2021 Fatty liver 12/27/2020 06/17/2021 Henoch-Schonlein purpura 12/27/2020 Social History Tobacco Use Types Packs/Day Years Used Date Smoking Tobacco: Never Smokeless Tobacco: Never Comments Unknown Sex and Gender Information Value Date Recorded Sex Assigned at Not on file Legal Sex Female 12:58 PM EST Gender Identity Not on file Sexual Orientation Not on file Last Filed Vital Signs Vital Sign Reading Time Taken Comments Blood Pressure 140/90 12/27/2020 1:49 PM EST Pulse 66 12/27/2020 1:49 PM EST Temperature - - Respiratory Rate - - Oxygen Saturation - - Inhaled Oxygen Concentration - - Weight 124 kg (274 lb) 12/27/2020 1:49 PM EST Height - - Body Mass Index - - Plan of Treatment Health Maintenance Due Date Last Done Comments Hepatitis B Vaccine (1 of 3 - 19+ 3-dose series) 2003 Influenza Vaccine (#1) 2024 Pneumococcal Vaccine: Pediat rics (0 to 5 Years) and At-Risk Patients (6 to 64 Years) Aged Out No longer eligi ble based on patient's age to complete this topic [place]
--- OUTSIDE RECORDS SUMMARY | 2024-11-28 10:12 | XMS_ITS | Encounter Summary ---
Author Organization [facility] [employer] Address [address] [place] [address] [address] [address] Care Team Providers Care Plant Health Manager Name Role Phone Gloria Irizarry MD Primary Care Provider [phone] Reason for Referral * Imaging (Routine) - Authorized Specialty Diagnoses / Procedures Referred By Contdori t Referred To Contact Radiology Diagnoses Bilateral deafness Screening mammogram for breast cancer Procedures BI Mammogram Screening Tomosynthesis Bilateral Gloria Irizarry MD [address] [place] [phone] Phone: tel: fax: [facility] Referral ID Status Reason Start Date Expiration Date V isits Requested Visits Authorized [id number] Authorized 11/25/2024 11/25/2025 1 1 Reason for Visit * Reason Comments Gynecologic Exam GRAYSON used freelance interpreter/translator line ASL [place] [id number] during the rooming process; GRAYSON also used freelance interpreter/translator line ASL Chante [id number] to explain the Health Care Proxy and to administer Flu vaccine Encounter Details Date Type Department Care Team (Latest Contact Info) Description 11/25/2024 10:30 AM EST Procedure Visit [facility] [address] [place], [place] [phone] Gloria rIizarry MD [address] [place], [place] [phone] Pap smear for cervical cancer screening (Primary Dx); Family planning; Gastroesophageal reflux disease, unspecified whether esophagitis present; Abdominal pain, unspecified abdominal location; Allergic disorder, sequela; Tobacco dependence syndrome; Screening mammogram for breast cancer; Encounter for immunization; Bilateral deafness; Routine screening for STI (sexually transmitted infection); Bleeding hemorrhoids; HSP (Henoch Schonlein purpura) (CMS/HCC) Social History Tobacco Use Types Packs/Day Years Used Date Smoking Tobacco: Former Cigarettes Q uit: 05/27/2024 Passive Smoke Exposure: Past Smokeless Tobacco: Current Tobacco Cessation:Ready to Q uit: Not Asked; Counseling Given: Not Answered Comments:Pt still vapes Depression Answer Date Recorded [...] AM EDT documented as of this encounter Last Filed Vital Signs Vital Sign Reading Time Taken Comments Blood Pressure 136/87 11/25/2024 10:46 AM EST Pulse 73 11/25/2024 10:46 AM EST Temperature 36.4 ??C (97.5 ??F) 11/25/2024 10:[address] Respiratory Rate 20 11/25/2024 10:46 AM EST Oxygen Saturation 97% 11/25/2024 10:46 AM EST Inhaled Oxygen Concentration - - Weight 121 kg (267 lb) 11/25/2024 10:46 AM EST Height 161.3 cm (5' 3.5 ) 11/25/2024 10:46 AM ES T Body Mass Index 46.56 11/25/2024 10:46 AM EST documented in this encounter Progress Notes * Gloria Irizarry MD - 11/25/2024 10:30 AM EST Subjective Susie Blackwood is a 39 y.o. woman with past medical history of constipation, Steatosis ofliver, IgA nephropathy, Anxiety, Bilateral deafness, s/o meniscus repair of right knee, and HSP here for pap. Quit smoking in February 2024, still vaping a little everyday, but cutting down. Agrees to COVID, declines Flu today. Pt reports she is trying to get and is following with a [facility]ertility [facility] in [place], starting discussions in November 2024. Currently on Pre-guera vitamin. Pt reports she has been having abdominal pain with burning sensation, intermittently. LMP: 11/21/24 Menses frequency: regular. Menses concerns: none. Desires within the next year:yes [facility] control: none. Breast concerns: none. Negative for: Masses, Nipple discharge, and Tenderness Menopausal symptoms negative for: hot flashes, night sweats, urinary incontinence and vaginal dryness. Review of Systems Constitutional: Negative for fever and unexpected weight change. Gastrointestinal: Negative for abdominal pain. Genitourinary: Negative for difficulty urinating, menstrual problem, pelvic pain, vaginal bleeding,vaginal discharge and vaginal pain. Previous paps: no recorded hx. Done today 11/25/24. Mammogram: not previously of applicable age. Ordered today 11/25/24. Objective Visit Vitals BP 136/87 (BP Location: Left arm, Patient Position: Sitting, BP Cuff Size: Large adult) Pulse 73 Temp 97.5 ??F (36.4 ??C) (Temporal) Resp 20 Physical Exam Chest: Breasts: Right: Normal. Left: Normal. Genitourinary: General: Normal vulva. Vagina: Normal. Cervix: Normal. Uterus: Normal. Comments: 2cm saundra on left side of mons pubis. Lymphadenopathy: Upper Body: Right upper body: No supraclavicular, axillary or pectoral adenopathy. Left upper body: No supraclavicular, axillary or pectoral adenopathy. Problem List Items Addressed This Visit Pap smear for cervical cancer screening - Primary Pap with HPV testing done 11/25/24 STI testing offered, PreP offered Relevant Orders Pap Smear STI testing add on (NG, CT, Trich) Family planning -pt does desire within the next 12 months -Follows with Fertility Clinic in [place]. -On Vitamins currently. Relevant Medications [id number] ( 1 + IRON PO) Gastroesophageal reflux disease Suspect new onset GERD. Reports symptoms of Intermittent abdominal pain with burning sensation. -prescribed omeprazole OTC (PriLOSEC OTC) 20 MG EC 11/25/24 Relevant Medications omeprazole OTC (PriLOSEC OTC) 20 MG EC tablet Abdominal pain Intermittent, burning sensation. Likely GERD. -prescribed omeprazole OTC (PriLOSEC OTC) 20 MG EC 11/25/24 Relevant Medications dicyclomine (Bentyl) 10 MG capsule Allergic Has known allergies and needs refill of EpiPen. -refilled EPINEPHrine (Epipen) 0.3 MG/0.3ML injection 11/25/24 Relevant Medications EPINEPHrine (Epipen) 0.3 MG/0.3ML injection syringe Tobacco dependence syndrome Use to smoke 5 cig per day -Quit february 2024. Screening mammogram for breast cancer Mammogram ordered 11/25/24 Relevant Orders BI Mammogram Screening Tomosynthesis Bilateral Bilateral deafness -freelance interpreter/translator needed for all speciality visits Relevant Orders BI Mammogram Screening Tomosynthesis Bilateral HSP (Henoch Schonlein purpura) (CMS/HCC) Relevant Orders CBC auto differential Iron And Total Iron Binding Capacity Ferritin Albumin, Random Urine W/Creatinine Basic Metabolic Panel Other Visit Diagnoses Encounter for immunization Relevant Orders FLU VACCINE TRIVALENT (Fluarix) 6 mo + (Completed) Routine screening for STI (sexually transmitted infection) Relevant Orders Pap Smear STI testing add on (NG, CT, Trich) Bleeding hemorrhoids Relevant Orders CBC auto differential Iron And Total Iron Binding Capacity Ferritin Pap with HPV testing done STI testing offered, PreP offered Preventative care and harm reduction discussed Follow up in about 3 months (around 02/22/2025) for annual evaluation. I, Anjelica Ocampo, am serving as a scribe to document services personally performed by Dr. Bills, based on the patient's response to questions by provider and providers statements to me. documented in this encounter Miscellaneous Notes * Assessment & Plan Note - Anjelica Ocampo - 11/25/2024 11:18 AM ESTAssociated Problem(s): Screening mammogram for breast cancer Mammogram ordered 11/25/24 * Assessment & Plan Note - Anjelica Ocampo - 11/25/2024 11:18 AM ESTAssociated Problem(s): Pap smear for cervical cancer screening Pap with HPV testing done 11/25/24 STI testing offered, PreP offered * Assessment & Plan Note - Anjelica Ocampo - 11/25/2024 11:18 AM ESTAssociated Problem(s): Family planning -pt does desire within the next 12 months -Follows with Fertility Clinic in [place]. -On Vitamins currently. * Assessment & Plan Note - Anjelica Ocampo - 11/25/2024 11:16 AM ESTAssociated Problem(s): Allergic Has known allergies and needs refill of EpiPen. -refilled EPINEPHrine (Epipen) 0.3 MG/0.3ML injection 11/25/24 * Assessment & Plan Note - Anjelica Ocampo - 11/25/2024 11:15 AM ESTAssociated Problem(s): Gastroesophageal reflux disease Suspect new onset GERD. Reports symptoms of Intermittent abdominal pain with burning sensation. -prescribed omeprazole OTC (PriLOSEC OTC) 20 MG EC 11/25/24 * Assessment & Plan Note - Anjelica Ocampo - 11/25/2024 11:15 AM ESTAssociated Problem(s): Abdominal pain Intermittent, burning sensation. Likely GERD. -prescribed omeprazole OTC (PriLOSEC OTC) 20 MG EC 11/25/24 * Assessment & Plan Note - Anjelica Ocampo - 11/25/2024 11:03 AM ESTAssociated Problem(s): Bilateral deafness -freelance interpreter/translator needed for all speciality visits * Assessment & Plan Note - Anjelica Ocampo - 11/25/2024 11:03 AM ESTAssociated Problem(s): Tobacco dependence syndrome Use to smoke 5 cig per day -Quit february 2024. documented in this encounter Plan of Treatment Upcoming Encounters Date Type Department Care Team (Late st Contact Info) Description 12/26/2024 9:00 AM EST Office Visit [facility] [address] [place] [address] Gloria Irizarry MD [address] [place] [address] Scheduled Orders Name Type Priority Associated Diagnoses Orde r Schedule BI Mammogram Screening Tomosynthesis Bilateral Imaging Routine Bilateral deafness Screening mammogram for breast cancer Expected: 11/25/2024, Expires: 01/23/2026 Pap Smear Pathology and Cytology Routine Pap smear for cervical cancer screening Routine screening for STI (sexually transmitted infection) Ordered: 11/25/2024 STI testing add on (NG, CT, Trich) Pathology and Cytology Routine Pap smear for cervical cancer screening Routine screening for STI (sexually transmitted infection) Ordered: 11/25/2024 documented as of this encounter Procedures Procedure Name Priority Date/Time Associated Diagnosis Comments ALBUMIN, RANDOM URINE W/CREATININE Routine 11/25/2024 11:42 AM EST HSP (Henoch Schonlein purpura) (CMS/HCC) CBC WITH AUTO DIFFERENTIAL Routine 11/25/2024 11:42 AM EST Bleeding hemorrhoids HSP (Henoch Schonlein purpura) (CMS/HCC) IRON AND TOTAL IRON BINDING CAPACITY Routine 11/25/2024 11:42 AM EST Bleeding hemorrhoids HSP (Henoch Schonlein purpura) (CMS/HCC) FERRITIN Routine 11/25/2024 11:42 AM EST Bleeding hemorrhoids HSP (Henoch Schonlein purpura) (CMS/HCC) BASIC METABOLIC PANEL Routine 11/25/2024 11:42 AM EST HSP (Henoch Schonlein purpura) (CMS/HCC) documented in this encounter Results * (ABNORMAL) Basic Metabolic Panel (11/25/2024 11:42 AM EST) Sodium 140 135 - 145 mmol/L [facility] Potassium 4.1 3.3 - 5.1 mmol/L [facility] Chloride 106 96 - 108 mmol/L [facility] Carbon Dioxide 27 22 - 29 mmol/L [facility] Anion Gap 11(L) 12 - 20 [facility] Urea Nitrogen (BUN) 7(L) 9 - 16 mg/dL [facility] Creatinine, Serum 0.70 0.5 - 1.4 mg/dL [facility] Estimated Glomerular Filt Rate >60 [facility] Comment:Chronic Kidney Disea se: Estimated GFR < 60 mL/min/1.65g4Yniijp Kidney Disease: Estimated GFR < 15 mL/min/1.73m2 Glucose 89 60 - 115 mg/dL [facility] Calcium 9.1 8.4 - 10.2 mg/dL [facility] Blood Venous blood specimen / Unknown 11/25/2024 11:42 AM EST 11/25/2024 1:29 PM EST Gloria Irizarry MD LAB BLOOD ORDERABLES Final Result Performing Organization Address [facility] [[email or web address]] Co de Phone Number [facility] [address] [place] [phone] * (ABNORMAL) Albumin, Random Urine W/Creatinine (11/25/2024 11:42 AM EST) Creatinine, Urine 51.41 mg/dL [facility] Microalbumin Urine 19.0 mg/L [facility] Microalbum Creatinine Ratio Ur 36.9(H) <30 ug/mg cr [facility] Comment:Albumin/Creatinine R atio Reference Ranges: Normal: < 30 ug/mg creatinine Microalbuminuria: 30 - 300 ug/mg creatinineClinical Albuminuria: > 300 ug/mg creatinine Urine 11/25/2024 11:4 2 AM EST 11/25/2024 1:45 PM EST Gloria Irizarry MD LAB URINE ORDERABLES Final Result Performing Organization Address [facility] [[email or web address]] Co nd Phone Number [facility] [address] [place] [phone] * Ferritin (11/25/2024 11:42 AM EST) Ferritin 24 10 - 250 ng/mL [facility] Blood Venous blood specimen / Unknown 11/25/2024 11:42 AM EST 11/25/2024 1:29 PM EST Gloria Irizarry MD LAB BLOOD ORDERABLES Final Result Performing Organization Address [facility] [[email or web address]] Co de Phone Number [facility] [address] [place] [phone] * Iron And Total Iron Binding Capacity (11/25/2024 11:42 AM EST) Iron 51 30 - 160 mcg/dL [facility] Total Iron Binding Capacity 240 228 - 428 mcg/dL [facility] Percent Iron Saturation 21 15 - 50 % [facility] Unsaturated Iron Binding 189 ug/dL [facility] Blood Venous blood specimen / Unknown 11/25/2024 11:42 AM EST 11/25/2024 1:29 PM EST us Gloria Irizarry MD LAB BLOOD ORDERABLES Final Result [facility] [address] [place] [phone] * CBC auto differential (11/25/2024 11:42 AM EST) White Blood Count 7.8 4.8 - 10.8 X10*3/uL [facility] Red Blood Count 4.40 4.20 - 5.50 X10*6/uL [facility] Hemoglobin 12.6 12.0 - 16.0 g/dl [facility] Hematocrit 38.7 37.0 - 47.0 % [facility] Mean Corpuscular Volume 88.0 80.0 - 98.0 fL [facility] Mean Corpuscular Hemoglobin 28.6 27.0 - 33.0 pg [facility] Mean Corpuscular HGB Conc 32.6 31.0 - 35.0 g/dl [facility] Red Cell Distribution Width 13.1 11.0 - 16.0 % [facility] Platelet Count 278 160 - 400 X10*3/uL [facility] Mean Platelet Volume 9.9 9.4 - 12.3 fL [facility] Neutrophils Percent Auto 57.6 45 - 73 % [facility] Imm Gran Pct Auto 0.4 0.0 - 0.4 % [facility] Lymphocytes Percent Auto 32.2 20 - 40 % [facility] Monocytes Percent Auto 9.1 2 - 11 % [facility] Eosinophils Percent Auto 0.6 0 - 4 % [facility] Basophils Percent Auto 0.1 0 - 2 % [facility] NRBC Pct Auto 0.0 0.0 - 0.2 /100WBC [facility] Neutrophils Absolute Auto 4.5 2.0 - 8.3 x10*3/uL [facility] Imm Gran Abs Auto 0.03 0.00 - 0.03 X10*3/uL [facility] Lymphocytes Absolute Auto 2.5 1.2 - 4.9 X10*3/uL [facility] Monocytes Absolute Auto 0.7 0.1 - 1.2 X10*3/uL [facility] Eosinophils Absolute Auto 0.1 0.0 - 0.4 X10*3/uL [facility] Basophils Absolute Auto 0.0 0.0 - 0.2 X10*3/uL [facility] NRBC Abs Auto 0.000 0.0 - 0.012 X10*3/uL [facility] Blood Venous blood specimen / Unknown 11/25/2024 11:42 AM EST 11/25/2024 1:29 PM EST us Gloria Irizarry MD LAB BLOOD ORDERABLES Final Result Performing Organization Address City/State/[facility] [[email or web address]] Co de Phone Number [facility] [address] [place] [phone] documented in this encounter Visit Diagnoses Diagnosis Pap smear for cervical cancer screening- Primary Screening for malignant neoplasm of the cervix Family planning Other general counseling and advice for contraceptive management Gastroesophageal reflux disease, unspecified whether esophagitis present Abdominal pain, unspecified abdominal location Allergic disorder, sequela Tobacco dependence syndrome Tobacco use disorder Screening mammogram for breast cancer Encounter for immunization Bilateral deafness Unspecified hearing loss Routine screening for STI (sexually transmitted infection) Screening examination for venereal disease Bleeding hemorrhoids Unspecified hemorrhoids with other complication HSP (Henoch Schonlein purpura) ([facility]) Allergic purpura Dietary counseling Dietary surveillance and counseling Exercise counseling Class 3 severe obesity due to excess calories without serious comorbidity with body mass index (BMI) of 45.0 to 49.9 in adult ([facility]) documented in this encounter Additional Health Concerns Assessment Noted Time PHQ-9 Depression Total Score: 1 11/25/19 25 10:49 AM EST documented as of this encounter Care Teams Plant Health Manager Relationship Specialty Start Date End Date Gloria Irizarry MD [address] [place] [address] PCP - General Family Medicine 02/10/20 documented as of this encounter
--- OUTSIDE RECORDS SUMMARY | 2024-11-28 10:12 | XMS_ITS | Encounter Summary ---
Author Organization [employer] Address [address] [facility] 7 [place] [address] Care Team Providers Care Associate Dean Name Role Phone Gloria Irizarry MD Primary Care Provider +1- [phone] Reason for Visit * Reason Onset Date Comments Med Refill 07/15/2023 Encounter Details Date Type Department Care Team ([facility] st Contact Info) Description 07/15/2023 Telephone [facility] MEDICINE [address], [place] [phone] Gloria Irizarry MD [address] [place] [address] Med Refill Social History Tobacco Use Types Packs/Day Years [...] encounter Miscellaneous Notes * Telephone Encounter - Ruth Delong - 07/15/2023 11:51 AM EDT Tc from patient requesting a new script for medication clonazepam 0.5 mg to be sent to a [facility] [place] due to current pharmacy having medication on back order. Patient is requesting a call back to inform her where medication will be sent. PCP Dr. Irizarry documented in this encounter Plan of Treatment Upcoming Encounters Date Type Department Care Team (Late st Contact Info) Description 12/26/2024 9:00 AM EST Office Visit [facility] MEDICINE [address] [place] [address] Gloria Irizarry MD [address] [place] [phone] documented as of this encounter Visit Diagnoses Not on filedocumented in this encounter Care Teams Associate Dean Relationship Specialty Start Date End Date Gloria Irizarry MD [address] [place] [address] PCP - General Family Medicine 02/10/20 documented as of this encounter
--- OUTSIDE RECORDS SUMMARY | 2024-11-28 10:12 | XMS_ITS | Data Portability ---
Author Organization SANDRA Rojas [facility] Address [address] [place] [address] Assessment No assessment recorded. Plan of Treatment Reminders Order Date Submit Date Provider Last Modified By Organization Details Last Modified Time Details Appointments None recorded. Lab rapid flu (A+B) 2023 024 [place] [facility], [address] [place], [address], 4 10:56:33 SARS CoV 2 (COVID-19) Ag, QL, IA, upper respiratory specimen 2023 024 [place] [facility], [address] [place], [address], 4 10:58:20 rapid strep group A, throat 2023 024 [place] [facility], [address] [place], [address], 4 10:59:14 rapid flu (A+B) 2023 024 [place], [address] [place], [address], 4 14:07:09 SARS CoV 2 (COVID-19) Ag, QL, IA, upper respiratory specimen 2023 024 [place] [facility], [address] [place] [address], [address], 14:07:22 Referral None recorded. Procedures None recorded. Surgeries None recorded. Imaging None recorded. Medication Orders None recorded. Patient TargetsNo targets recorded. Patient Instructions Encounter Date Encounter Id Patient Instructions Last Modified By Organization Details Last Modified Time 12/01/2023 [id number] sore throat: car e instructions Not available 12/01/2023 19:18:21 upper respirator y infection (cold): care instructions Not available 12/01/2023 19:18:21 02/15/2024 [id number] viral infections : care instructions [email or web address] Not available 02/15/2024 14:18:40 Acute Sinusitis: Care Instructions [email or web address] Not available 02/15/2024 14:18:40 sinusitis, no antibiotics [email or web address] Not available 02/15/2024 14:18:40 cough: care instructions [email or web address] Not available 02/15/2024 14:18:39 Rest. Drink plenty [...] pain, blood in your stool, intractable vomiting. [email or web address] Not available 02/15/2024 14:20:57 Reason for Referral None Reported. Results Created Date Observation Date Name Description Value Unit Range Abnormal Flag Note LastModifiedBy Organization Detail LastModifiedTime 12/07/1912/07/2023 rapid strep group A, throa t Unknown Analyte negati ve Not Available [address] [address] [place], [address], 12/01/2023 19:04:45 12/07/1912/07/2023 rapid strep group A, throa t Unknown Analyte yes Not Available [facility] [address] [place], [address], 12/01/2023 19:04:45 12/07/19 24 12/07/2023 SARS CoV 2 (COVI D-19) Ag, QL, IA, upper respi rator y speci men Unknown Analyte negati ve Not Available [facility] [address] [place], [address], 12/01/2023 19:04:39 12/07/19 24 12/07/2023 SARS CoV 2 (COVI D-19) Ag, QL, IA, upper respi rator y speci men Unknown Analyte YES Not Available [address] [place] [address] [address] [place], [address], 12/01/2023 19:04:39 12/07/19 24 12/07/2023 rapid flu (A+B) Unknown Analyte negati ve Not Available [facility] [address] [place], [address], 12/01/2023 19:04:31 12/07/19 24 12/07/2023 rapid flu (A+B) Unknown Analyte negati ve Not Available [facility] [place] [address], [address], 12/01/2023 19:04:31 12/07/19 24 12/07/2023 rapid flu (A+B) Unknown Analyte yes Not Available [facility] [address] [place], [address], 12/01/2023 19:04:31 02/15/20 24 02/15/2024 SARS CoV 2 (COVI D-19) Ag, QL, IA, upper respi rator y speci men Unknown Analyte negati ve Not Available [facility] [place], [address], 02/15/2024 13:52:18 02/15/20 24 02/15/2024 SARS CoV 2 (COVI D-19) Ag, QL, IA, upper respi rator y speci men Unknown Analyte YES Not Available [address] [place] [address] [place] [address], [address], 02/15/2024 13:52:18 02/15/20 24 02/15/2024 rapid flu (A+B) Unknown Analyte negati ve Not Available [facility] [address] [place] [address], [address], 02/15/2024 13:52:17 02/15/20 24 02/15/2024 rapid flu (A+B) Unknown Analyte Not Available [address] [place] [address] [place] [address], [address], 02/15/2024 13:52:17 02/15/20 24 02/15/2024 rapid flu (A+B) Unknown Analyte negati ve Not Available [facility] [address] [place] [address], [address], 02/15/2024 13:52:17 02/15/20 24 02/15/2024 rapid flu (A+B) Unknown Analyte YES Not Available [address] [place] [address] [place] [address], [address], 02/15/2024 13:52:17 Result Notes None recorded. Problems Name Problem SNOMED Code Status Onset Date Resolution Date Notes Provider Name and Address Organization Details Recorded Time Anxiety 55078064 Active SANDRA Elkins - [facility] 12/01/2023 19:00:00 Problem Notes None recorded. Medical Equipment None Reported. Allergies Allergen ID Allergen Name Allergen Category Reaction Reaction Severity Criticality Documentation Date Start Date Code Code System Note Provider Name and Address Organization Details Recorded Time 146200 Non-stero idal anti-infl ammatory agent (product) medicatio n Not available Not available Not available 02/15/2024 11642 005 SNOMED SANDRA Savage [facility] 4 13:36:32 Medications Name Sig Start Date Stop Date Status Note LastModified by Organization Details LastModified Time clonazepam active Not Available Not Av ailable Not Available Vitals Date Recorded Body height Body mass index (BMI) Body weight Body temperature Pain severity - 0-10 verbal numeric rating [Score] - Reported Oxygen saturation Oxygen saturation in Arterial blood by Pulse oximetry Heart rate Respiratory rate Systolic blood pressure Diastolic blood pressure Provider Name and Address Organization Details Last Updated DateTime 4 162.56 cm 45.5 kg/m2 873798. 98 g 97.9 [degF] 7 98 % 98 % 78 /min 18 /min 123 mm[Hg] 84 mm[Hg] Ingrid Harper [facility] 4 18:58:25 Date Recorded Body height Body mass index (BMI) Body weight Oxygen saturation Oxygen saturation in Arterial blood by Pulse oximetry Heart rate Respiratory rate Body temperature Systolic blood pressure Diastolic blood pressure Provider Name and Address Organization Details Last Updated DateTime 4 162.56 cm 45 kg/m2 879598. 2 g 97 % 97 % 82 /min 18 /min 98.1 [degF] 135 mm[Hg] 85 mm[Hg] Cate Harper [facility] 4 13:35:44 Social History Question Answer Notes LastModified by Organizat ion Details LastModified Time Tobacco Smoking Status Current Every Day Smoker SANDRA Elkins [facility] 12/01/2023 18:56:35 What Is Your Level Of Alcohol Consumption? None [email or web address] Information not available 12/01/2023 Have You Had A Flu Shot This Season? No [email or web address] Information not available 12/01/2023 Have You Had Direct Contact, Or Contact During Intimacy, With Monkeypox Rash, Scabs, Or Body Fluids From A Person With Monkeypox? No [email or web address] Information not available 12/01/2023 What Was The Date Of Your Most Recent Tobacco Screening? 02/15/2024 [email or web address] Information not available 02/15/2024 How Much Tobacco Do You Smoke? 1 PPW [email or web address] Information not available 12/01/2023 Do You Use Any Illicit Or Recreational Drugs? No [email or web address] Information not available 12/01/2023 Have You Recently Traveled Abroad? No [email or web address] Information not available 12/01/2023 Sex: Unknown Functional [...] SNOMED-CT Code Diagnosis ICD10 Code Diagnosis Note [id number] [address] [facility] [address] 09/03/2020 09:02:14 09/03/2020 11:47:57 [id number] [address] [facility] [address] 08/29/2020 09:35:14 08/29/2020 12:45:21 [id number] [address] [facility] [address] 08/23/2020 10:48:18 08/23/2020 12:37:27 [id number] [address] [facility] [address] 08/03/2021 12:53:19 08/03/2021 15:18:12 [id number] [address] [address] [facility] [address] [address] 09/12/2020 08:30:32 09/12/2020 10:31:37 [id number] SANDRA Monae [address] [address] [facility] [address] [address] 12/01/2023 18:43:15 12/01/2023 19:27:32 Upper respiratory infection 83030245 J06.9 Patient presented with symptoms of upper [...] usage was discussed and recommenda tions made.Alejandro ferris understood these instructio ns and will follow up in the office in 10 days to 2 weeks if symptoms not improving. ER if any shortness of breath/heath st pain or worsening. Thank you for using [employer] today, please feel free to contact our office if you have any questions or concerns. [id number] Anita Rodriguez MD [address] [facility] [address] [facility] [address] [address] 02/15/2024 11:48:37 02/15/2024 14:29:25 Cough 02194753 R05.9 Viral syndrome 037374460 B34.9 Health Concerns Section Related Observation LastModified by Organization Detai ls LastModified Time None Recorded Concern Status LastModified by Organization Details LastModified Time None Recorded Advance Directives Directive None Recorded Payers Encounter Date Sequence Insurance Name Policy Number Policy Parkinson Covered Member ID Parkinson Member ID Guarantor Name 08/03/2021 1 [facility] Susie Blackwood [id number] Susie Blackwood 12/01/2023 1 [facility] [id number] Susie Blackwood [id number] Susie Blackwood 02/15/2024 1 [facility] [id number] Susie Blackwood [id number] Susie Blackwood Notes Date Note Type Note Provider Name and Address Organization Details Recorded Time 12/01/2023 text/html Visit held with instructor industrial design. 38 y/o female woke up this morning with body aches, chills, fatigue. Went to work and felt worse through the day. SANDRA Monae [address] [place], [address], [place] [facility] 12/01/2023 19:22:20 02/15/2024 text/html CongestionNewR epo rted bypatient.Modifying FactorsOTC tylenol sinus medication. 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 Communication [...] Anita Rodriguez MD [address] [place], [address], [place] - [facility] 02/17/2024 08:55:48 OBGyn Episode No OBEpisode recorded.
--- OUTSIDE RECORDS SUMMARY | 2024-11-28 10:13 | XMS_ITS | Encounter Summary ---
Author Organization [employer] Address [address] [place] [address] [place] [address] Care Team Providers Care Cat Driver Name Role Phone Gloria Irizarry MD Primary Care Provider +1- [phone] Reason for Visit * Reason Onset Date Comments Appointment Request 11/23/2023 Encounter Details Date Type Department Care Team (Late Contact Info) Description 11/23/2023 Telephone [facility] MEDICINE [address] [place], [place] [phone] Gloria Irizarry MD [address] [place], [place] [phone] Appointment Request Social History Tobacco Use Types Packs/Day Years [...] * Telephone Encounter - Nacho Klein - 11/23/2023 11:49 AM EST Tc from pt stating they received a letter and call from [facility] to schedule a PE appt, however writers see no recent encounter, recalls nor letters on file. Please contact at [phone] ASL documented in this encounter Plan of Treatment Upcoming Encounters Date Type Department Care Team (Late Contact Info) Description 12/26/2024 9:00 AM EST Office Visit [facility] MEDICINE [address] [place] [address] Gloria Irizarry MD [address] [place] [address] documented as of this encounter Visit Diagnoses Not on filedocumented in this encounter Care Teams Cat Driver Relationship Specialty Start Date End Date Gloria Irizarry MD [address] [place] [address] PCP - General Family Medicine 02/10/20 documented as of this encounter
--- OUTSIDE RECORDS SUMMARY | 2024-11-28 10:13 | XMS_ITS | Encounter Summary ---
Author Organization [facility] [employer] Address [address] [place] [address] 7 [place] [address] Care Team Providers Care Memorial Mason Name Role Phone Gloria Irizarry MD Primary Care Provider +1- [phone] Encounter Details Date Type Department Care Team (Late st Contact Info) Description 10/22/2023 Telephone [facility] MEDICINE [address] [place] [address] [phone] Gloria Irizarry MD [address] [place] [address] [phone] Social History Tobacco Use Types Packs/Day Years [...] encounter Miscellaneous Notes * Telephone Encounter - Ela Luna - 10/22/2023 1:40 PM EST Tc from pt states received a call from nurse through cell phone but pt is deaf. Livestock Nutrition Territory Manager does not seeany documentation. Please contact pt through video relay at [phone] documented in this encounter Plan of Treatment Upcoming Encounters Date Type Department Care Team (Late Contact Info) Description 12/26/2024 9:00 AM EST Office Visit [facility] MEDICINE [address] [place] [address] [phone] Gloria Irizarry MD [address] [place] [address] documented as of this encounter Visit Diagnoses Not on filedocumented in this encounter Care Teams Memorial Mason Relationship Specialty Start Date End Date Gloria Irizarry MD [address] [place] [address] PCP - General Family Medicine 02/10/20 documented as of this encounter
--- OUTSIDE RECORDS SUMMARY | 2024-11-28 10:13 | XMS_ITS | Encounter Summary ---
Author Organization [facility] [employer] [facility] Address [address] [place] [address] [address] [place] [address] Care Team Providers Care Feather Mixer Name Role Phone Gloria Irizarry MD Primary Care Provider +1- [phone] Encounter Details Date Type Department Care Team (Late Contact Info) Description 11/11/2022 Abstract [facility] MEDICINE [address] [place] [address] [phone] Gloria Irizarry MD [address] [place] [address] [phone] Social History Tobacco Use Types Packs/Day Years [...] Description 12/26/2024 9:00 AM EST Office Visit [facility] MEDICINE [address] [place] [address] [phone] Gloria Irizarry MD [address] [place] [phone] documented as of this encounter Procedures Procedure Name Priority Date/Time Associated Diagnosis Comments HPV HIGH RISK PCR Routine 01/14/2019 12:00 AM EDT PAP SMEAR Routine 01/14/2019 12:00 AM EDT documented in this encounter Results * HPV High Risk PCR (01/14/2019 12:00 AM EDT) Swab Cervical swab / Unknown Historical Provider LAB MICROBIOLOGY - GENERA L ORDERABLES Final Result Performing Organization Address [facility] Co de Phone Number [facility] [address] [place] [phone] * Pap Smear (01/14/2019 12:00 AM EDT) Swab Gloria Irizarry MD LAB CYTOLOGY ORDERABLES Fi nal Result Performing Organization Address [facility] Co de Phone Number [facility] [address] [place] [phone] documented in this encounter Visit Diagnoses Not on filedocumented in this encounter Care Teams Feather Mixer Relationship Specialty Start Date End Date Gloria Irizarry MD [address] [place] [phone] PCP - General Family Medicine 02/10/20 documented as of this encounter
--- OUTSIDE RECORDS SUMMARY | 2024-11-28 10:13 | XMS_ITS | Encounter Summary ---
Author Organization [facility] [employer] [facility] Address [address] [place] [address] Care Team Providers Care Environmental Health Officer Name Role Phone Gloria Irizarry MD Primary Care Provider +1- [phone] Reason for Visit * Reason Onset Date Comments Med Refill 04/13/2023 Encounter Details Date Type Department Care Team (Late st Contact Info) Description 04/13/2023 Refill [facility] MEDICINE [address] [place] [address] [phone] Gloria Irizarry MD [address] [place] [address] [phone] Anxiety Social History Tobacco Use Types Packs/Day Years [...] 9:00 AM EST Office Visit [facility] [address] [place] [address] [phone] Gloria Irizarry MD [address] [place] [address] [phone] documented as of this encounter Visit Diagnoses Diagnosis Anxiety Anxiety state, unspecified Dietary counseling Dietary surveillance and counseling Exercise counseling Class 3 severe obesity due to excess calories without serious comorbidity with body mass index (BMI) of 45.0 to 49.9 in adult (CMS/HCC) documented in this encounter Care Teams Environmental Health Officer Relationship Specialty Start Date End Date Gloria Irizarry MD [address] [place] [phone] PCP - General Family Medicine 02/10/20 documented as of this encounter
--- OUTSIDE RECORDS SUMMARY | 2024-11-28 10:13 | XMS_ITS | Encounter Summary ---
Author Organization [employer] Address 75 [facility] [address] [place] [address] Care Team Providers Care Draw Press Operator Name Role Phone Gloria Irizarry MD Primary Care Provider +1- [phone] Reason for Visit * Reason Onset Date Comments Medication Question 11/02/2024 Encounter Details Date Type Department Care Team ([facility] st Contact Info) Description 11/02/2024 Telephone [facility] MEDICINE [address] [place], [place] [phone] Gloria Irizarry MD [address] [place], [place] [phone] Medication Question Social History Tobacco Use Types [...] encounter Miscellaneous Notes * Telephone Encounter - Ellyn Comer RN - 11/03/2024 3:32 PM EST Telephone call to pt to clarify below message. Pt reports having stopped taking clonazepam since August, states Dr Irizarry is aware of this, pt reporting having trouble sleeping since stopping this medication. She states she never picked up the melatonin 5mg prescription (dated 10/28/2022) but didbuy and take over the counter melatonin intermittently however she is concerned about taking melatonin 5mg daily when the previous Rx said only as needed but she would like something she can take every night, plus Rx is out of date now to fill. Advised her message would be sent to PCP for guidance and nurses will call back with update. * Telephone Encounter - Yolanda Alcaraz - 11/02/2024 11:55 AM EST Tc from pt with sr community manager as she has medication question (Melatonin 5mg) pt has concerns and willlike a callback [phone] documented in this encounter Plan of Treatment Upcoming Encounters Date Type Department Care Team (Late st Contact Info) Description 12/26/2024 9:00 AM EST Office Visit [facility] MEDICINE [address] [place] [phone] Gloria Irizarry MD [address] [place] [phone] documented as of this encounter Visit Diagnoses Not on filedocumented in this encounter Care Teams Draw Press Operator Relationship Specialty Start Date End Date Gloria Irizarry MD [address] [place] [phone] PCP - General Family Medicine 02/10/20 documented as of this encounter
--- OUTSIDE RECORDS SUMMARY | 2024-11-28 10:13 | XMS_ITS | Encounter Summary ---
Author Organization [facility] [employer] [facility] Address [address] [place] [address] Care Team Providers Care Certified Pharmacy Technician Name Role Phone Gloria Irizarry MD Primary Care Provider +1- [phone] Reason for Visit * Reason Onset Date Comments Med Refill 04/30/2023 Encounter Details Date Type Department Care Team (Late st Contact Info) Description 04/30/2023 Refill [facility] MEDICINE [address] [place] [address] [phone] Gloria Irizarry MD [address] [place] [address] [phone] Anxiety Social History Tobacco Use Types Packs/Day [...] Description 12/26/2024 9:00 AM EST Office Visit [facility] MEDICINE [address] [place] [address] [phone] Gloria Irizarry MD [address] [place] [address] [phone] documented as of this encounter Visit Diagnoses Diagnosis Anxiety Anxiety state, unspecified Dietary counseling Dietary surveillance and counseling Exercise counseling Class 3 severe obesity due to excess calories without serious comorbidity with body mass index (BMI) of 45.0 to 49.9 in adult (CMS/HCC) documented in this encounter Care Teams Certified Pharmacy Technician Relationship Specialty Start Date End Date Gloria Irizarry MD [address] [place] [phone] PCP - General Family Medicine 02/10/20 documented as of this encounter
--- OUTSIDE RECORDS SUMMARY | 2024-11-28 10:13 | XMS_ITS | Clinical Summary ---
Author Organization [employer] Address [address] [place] [address] [address] [place] [address] Care Team Providers Care Belt Turner Name Role Phone Gloria Irizarry MD Primary Care Provider [phone] Allergies Active Allergy Reactions Criticality Noted Date Comments Bee Venom 11/08/2024 Fish Allergy 12/10/2018 Other reaction(s): Unknown Nsaids Unknown 11/08/2018 Valacyclovir 12/10/2018 Other reaction(s): Unknown Medications melatonin 5 MG tabletIndicatio ns:Other insomnia Take 1 tablet by mouth every day at bedtime as needed 30 tablet 11 023 Active clonazePAM (KlonoPIN) 0.5 MG tabletIndicatio ns:Anxiety TAKE 1 TABLET BY MOUTH EVERY DAY NEEDED 15 tablet 2 024 Active loratadine (Claritin) 10 MG tabletIndicatio ns:Allergic rhinitis, unspecified seasonality, unspecified trigger TAKE 1 TABLET BY MOUTH EVERY DAY 90 tablet 024 Active fluticasone (Flonase) 50 MCG/ACT nasal sprayIndication s:Allergic rhinitis, unspecified seasonality, unspecified trigger SPRAY 2 SPRAYS INTO EACH NOSTRIL EVERY DAY 48 mL 025 Active dicyclomine (Bentyl) 10 MG capsuleIndicati ons:Abdominal pain, unspecified abdominal location 025 Active Avzuannf-Dbu-Fp -FA ( 1 + IRON PO)Indications: Family planning Take by mouth. Active EPINEPHrine (Epipen) 0.3 MG/0.3ML injection syringeIndicati ons:Allergic disorder, sequela Inject 0.3 mL (0.3 mg) as directed 1 (one) time if needed for anaphylaxis for up to 1 dose. Inject into upper leg. Call 911 after use. 1 each 025 Active omeprazole (PriLOSEC) [address] capsuleIndicati ons:Gastroesoph ageal reflux disease, unspecified whether esophagitis present TAKE 1 CAPSULE BY MOUTH EVERY DAY NEEDED FOR GERD. 30 capsule 11 025 Active clonazePAM (KlonoPIN) 0.5 MG tabletIndicatio ns:Anxiety Take 1 tab po daily prn 30 tablet 3 023 2024 Discontinued(M ed list cleanup (will not trigger notification to Pharmacy)) acetaminophen (Tylenol) 500 MG tablet Take 1 tablet by mouth every 8 (eight) hours. 022 2024 Discontinued(D uplicate order (will not trigger notification to Pharmacy)) hydrocortisone (Preparation H) 1 % cream apply by topical route 2 times every day to the affected area(s) 019 2024 Discontinued(D uplicate order (will not trigger notification to Pharmacy)) omeprazole (PriLOSEC) [address] capsule Take 1 capsule by mouth in the morning. 022 2024 Discontinued(D uplicate order (will not trigger notification to Pharmacy)) clonazePAM (KlonoPIN) 0.5 MG tablet Take 0.5 mg by mouth if needed at bedtime. 021 2024 Discontinued(D uplicate order (will not trigger notification to Pharmacy)) lactulose (Chronulac) 10 GM/15ML solution TAKE 15ML BY MOUTH DAILY NEEDED FOR CONSTIPATION 023 2024 Discontinued(D uplicate order (will not trigger notification to Pharmacy)) nitrofurantoin, macrocrystal-mo nohydrate, (Macrobid) 100 MG capsule Take 100 mg by mouth 2 times daily. 023 2024 Discontinued(D uplicate order (will not trigger notification to Pharmacy)) polyethylene glycol, PEG, 3350 (MiraLax) 17 GM/SCOOP powder 17 grams in 8-12 oz fluid like water at bedtime prn constipation 527 g 2 023 2024 Discontinued(D uplicate order (will not trigger notification to Pharmacy)) EPINEPHrine (Epipen) 0.3 MG/0.3ML injection syringe Inject 0.3 mL (0.3 mg) as directed 1 (one) time if needed for anaphylaxis for up to 1 dose. Inject into upper leg. Call 911 after use. 1 each 023 2024 Discontinued(R eorder (will not trigger notification to Pharmacy)) D3-1000 25 MCG (1000 UT) capsuleIndicati ons:Vitamin D deficiency TAKE 1 CAPSULE BY MOUTH EVERY DAY 90 capsule 3 024 2024 Discontinued senna-docusate sodium (Senokot-S) 8.6-50 MG tabletIndicatio ns:Constipation , unspecified constipation type Take 1 tablet by mouth in the morning. 30 tablet 11 024 2024 Discontinued glycerin (Adult) 2 g suppositoryIndi cations:Constip ation, unspecified constipation type Insert 1 suppository (2 g) into the rectum if needed each day for constipation. 30 suppository 3 024 2024 Discontinued docusate sodium (Colace) 100 MG capsuleIndicati ons:Constipatio n, unspecified constipation type TAKE 1 CAPSULE BY MOUTH TWICE A DAY NEEDED FOR CONSTIPATION 60 capsule 4 024 2024 Discontinued fluticasone (Flonase) 50 MCG/ACT nasal sprayIndication s:Allergic rhinitis, unspecified seasonality, unspecified trigger SPRAY 2 SPRAYS INTO EACH NOSTRIL EVERY DAY 48 mL 024 2024 Discontinued omeprazole OTC (PriLOSEC OTC) 20 MG EC tabletIndicatio ns:Gastroesopha geal reflux disease, unspecified whether esophagitis present Take 1 tablet (20 mg) by mouth if needed each day (gerd). Do not crush, chew, or split. 30 tablet 11 025 2024 Discontinued Active Problems Problem Noted Date Diagnosed Date Pap smear for cervical cancer screening 11/25/19 Overview (11/25/2024): Pap with HPV testing done 11/25/24 STI testing offered, PreP offered Assessment & Plan (11/25/2024 11:18 AM EST): Pap with HPV testing done 11/25/24 STI testing offered, PreP offered Encounter for screening for malignant neoplasm o f colon 11/25/2024 Overview (11/25/2024): Colonoscopy done 09/21/24. Gastroesophageal reflux disease 11/25/2024 Overview (11/25/2024): Suspect new onset GERD. Reports symptoms of Intermittent abdominal pain with burning sensation. -prescribed omeprazole OTC (PriLOSEC OTC) 20 MG EC 11/25/24 Assessment & Plan (11/25/2024 11:15 AM EST): Suspect new onset GERD. Reports symptoms of Intermittent abdominal pain with burning sensation. -prescribed omeprazole OTC (PriLOSEC OTC) 20 MG EC 11/25/24 Abdominal pain 11/25/2024 Overview (11/25/2024): Intermittent, burning sensation. Likely GERD. -prescribed omeprazole OTC (PriLOSEC OTC) 20 MG EC 11/25/24 Assessment & Plan (11/25/2024 11:15 AM EST): Intermittent, burning sensation. Likely GERD. -prescribed omeprazole OTC (PriLOSEC OTC) 20 MG EC 11/25/24 Family planning 11/25/2024 Overview (11/25/2024): -pt does desire within the next 12 months -Follows with [facility] in [place]. -On Vitamins currently. Assessment & Plan (11/25/2024 11:18 AM EST): -pt does desire within the next 12 months -Follows with [facility] in [place]. -On Vitamins currently. Allergic 11/25/2024 Overview (11/25/2024): Has known allergies and needs refill of EpiPen. -refilled EPINEPHrine (Epipen) 0.3 MG/0.3ML injection 11/25/24 Assessment & Plan (11/25/2024 11:16 AM EST): Has known allergies and needs refill of EpiPen. -refilled EPINEPHrine (Epipen) 0.3 MG/0.3ML injection 11/25/24 Screening mammogram for breast cancer 11/25/2024 Overview (11/25/2024): Mammogram ordered 11/25/24 Assessment & Plan (11/25/2024 11:18 AM EST): Mammogram ordered 11/25/24 Flat feet 01/29/2024 Assessment & Plan (01/29/2024 10:59 AM EDT): - Kinesio taping done 01/29/24 - Advised the use of supportive shoes Constipation 08/31/2023 Overview (01/29/2024): - Start Senna and Glycerin 2g suppository for constipation relief 01/29/24 - Referral placed for GI 01/29/24 - Continue Miralax prn Assessment & Plan (01/29/2024 10:43 AM EDT): - Start Senna and Glycerin 2g suppository for constipation relief 01/29/24 - Referral placed for GI 01/29/24 - Continue Miralax prn Assessment & Plan (08/31/2023 12:32 PM EST): -requested miralax -controlled with current medication Tobacco dependence syndrome 08/14/2023 10/ Overview (11/25/2024): Use to smoke 5 cig per day -Quit february 2024. Assessment & Plan (11/25/2024 11:03 AM EST): Use to smoke 5 cig per day -Quit february 2024. Assessment & Plan (08/31/2023 11:49 AM EST): -5 cig per day Preventative health care 08/14/2023 Overview (11/25/2024): -next physical exam due after 01/28/25 -eye care facilitated by Prem Garcia. -dental home is [facility] - Health care proxy paperwork provided to the patient 01/29/24, filed 11/25/24 Assessment & Plan (01/29/2024 11:01 AM EDT): -next physical exam due after 01/28/25 -eye care facilitated by - -dental home is - - Health care proxy paperwork provided to the patient 01/29/24 Assessment & Plan (08/31/2023 11:54 AM EST): -next physical exam due after 09/17/2023 -eye care facilitated by -dental home is History of medial meniscus repair of right knee 08/14/2023 Overview (08/14/2023): She saw [facility] and had an injection and PT. Sx's minimally improved. She would like to see [facility]. Referral done 08/2022. Assessment & Plan (08/31/2023 11:49 AM EST): She saw [facility] and had an injection and PT. Sx's minimally improved. She would like to see [facility]. Referral done 08/2022. 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 Baseline labs obtained 12/29/2020 revealed UA with 5-9 RBC and normal Creatinine of 0.80. Pt saw Dr. Torey Duggan in office 12/27/2020. Rash improved and Labs 01/18 with improved Cr and UA 1-4 RBC. Reports rash almost resolved 01/28/2021, still has some stiffness in hands and knees. Plan of care: 1. no steroids indicated at this time 2. encourage NSAIDs if flair 3. check UA and renal studies February 01, she was not able to get her labs. she will get them Thursday 4. request old records from [place] [address]. referral to rheumatology given musculoskeletal symptoms. Appointment date is February -follow up next week via Televisit -Will follow up in 3 weeks. 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 Baseline labs obtained 12/29/2020 revealed UA with 5-9 RBC and normal Creatinine of 0.80. Pt saw Dr. Torey Duggan in office 12/27/2020. Rash improved and Labs 01/18 with improved Cr and UA 1-4 RBC. Reports rash almost resolved 01/28/2021, still has some stiffness in hands and knees. Plan of care: 1. no steroids indicated at this time 2. encourage NSAIDs if flair 3. check UA and renal studies February 01, she was not able to get her labs. she will get them Thursday 4. request old records from [place] [address]. referral to rheumatology given musculoskeletal symptoms. Appointment date is February -follow up next week via Televisit -Will follow up in 3 weeks. IgA nephropathy 11/08/2018 08/14/2023 Steatosis of liver 11/08/2018 08/14/2023 Resolved Problems Problem Noted Date Diagnosed Date Resolved Date Chronically on benzodiazepine therapy 08/24/2024 11/08/2024 Tinea pedis of both feet 01/29/2024 Assessment & Plan (01/29/2024 10:58 AM EDT): - Start Clotrimazole 1% BID. Urinary tract infection without hematuria 08/31/2023 11/08/2024 Overview (08/31/2023): -resolved Assessment & Plan (08/31/2023 12:24 PM EST): -resolved Encounters Date Type Department Care Team Description 11/25/2024 10:30 AM EST Procedure Visit [facility] [address] [place] [phone] Gloria Irizarry MD Pap smear for cervical cancer screening (Primary Dx); Family planning; Gastroesophageal reflux disease, unspecified whether esophagitis present; Abdominal pain, unspecified abdominal location; Allergic disorder, sequela; Tobacco dependence syndrome; Screening mammogram for breast cancer; Encounter for immunization; Bilateral deafness; Routine screening for STI (sexually transmitted infection); Bleeding hemorrhoids; HSP (Henoch Schonlein purpura) ([facility]) 11/25/2024 Refill [facility] [address] [place] [address] Gloria Irizarry MD Gastroesophageal reflux disease, unspecified whether esophagitis present 11/25/2024 Travel 11/08/2024 Refill [facility] [address] [place], [place] [phone] Gloria Irizarry MD Allergic rhinitis, unspecified seasonality, unspecified trigger 11/02/2024 Telephone [facility] [address] [place], [place] [phone] Gloria Irizarry MD Medication Question 09/24/2024 Refill [facility] [address] [place] [address] Gloria Irizarry MD Allergic rhinitis, unspecified seasonality, unspecified trigger 09/05/2024 Telephone [facility] [address] [place] [address] Pniky Pozo [place] October Recall from Last 3 Months Immunizations Name Administration Dates Next Due Hep A, Unspecified 09/25/2014,03/28/2014 Hep B, adult 01/29/2024,01/14/2019,12/10/2018 Influenza High-dose Quadriva lent Preservative Free 11/13/2021 Influenza injectable quadriv alent preservative free 09/17/2022,08/11/2020 Influenza, IIV3, injectable 07/29/2019, 4 Influenza, Unspecified 07/29/2019 Influenza, seasonal, injecta ble, preservative free 11/25/2024,07/29/2019,08/12/2017,09/19 MMR 01/14/2019 Pfizer Covid-19 Vaccine 12+ 01/29/2024,,03/22/2021 Pfizer Covid-19 Vaccine 12+ Bivalent 09/22/2022 Pneumococcal Polysaccharide PPSV23 09/30/2017 Tdap 09/17/2022 Social History Tobacco Use Types Packs/Day Years [...] or Robles 08/25/2022 10 :34 AM EDT Last Filed Vital Signs Vital Sign Reading [...] Mass Index 46.56 11/25/2024 10:46 AM EST Plan of Treatment Upcoming Encounters Date Type Department Care Team (Late st Contact Info) Description 12/26/2024 9:00 AM EST Office Visit [facility] [address], [place] [phone] Gloria Irizarry MD [address] [place] [address] Health Maintenance Due Date Last Done Comments Family Planning (PISQ) 1999 Pap Smear 01/14/2022 01/14/2019 Cervical Cancer Screening 01/15/2024 HPV/Cotest 01/15/2024 01/14/2019, 01/14/2019 Mammogram 2024 Alcohol/Substance Use Screening 11/25/2025 11/25/2024 COVID-19 Vaccine ( season) 2025 01/29/2024, 09/22/2022, 04/12/2021, Additional history exists Postponed from 06/26/2024 (Patient Refused) Depression Screening 11/25/2025 11/25/2024, 11/25/19 25 SDOH Screening 11/25/2025 11/25/2024 Tobacco Screening 11/25/2025 11/25/2024 Lipid Panel 01/28/2029 01/29/2024, 09/17/2022 DTaP/Tdap/Td Vaccines (2 - Td or Tdap) 09/17/2032 09/17/2022 Zoster Vaccines (1 of 2) 2034 RSV Patients and Patients Aged 60 years or older (1 - 1-dose 75+ series) 2059 Hepatitis A Vaccines Completed 09/25/2014, 03/28/20 14 Pneumococcal Vaccine: Pediatrics (0 to 5 Years) and At-Risk Patients (6 to 49) Years) Aged Out 09/30/2017 No longer eligible based on patient's age to complete this topic Hepatitis C Screening Completed 12/29/2020 HIV Screening Completed 09/17/2022 Hepatitis B Vaccines Completed 01/29/2024, 01/14/2019, 12/10/2018 Influenza Vaccine Completed 11/25/2024, , 11/13/2021, Additional history exists HIB Vaccines Aged Out No longer eligi ble based on patient's age to complete this topic HPV Vaccines Aged Out No longer eligi ble based on patient's age to complete this topic IPV Vaccines Aged Out No longer eligi ble based on patient's age to complete this topic Meningococcal Vaccine Aged Out No eryn teo eligible based on patient's age to complete this topic RSV under 20 months Aged Out No longe r eligible based on patient's age to complete this topic Rotavirus Vaccines Aged Out No longer eligible based on patient's age to complete this topic Procedures Procedure Name Priority Date/Time Associated Diagnosis Comments BASIC METABOLIC PANEL Routine 11/25/2024 11:42 AM EST HSP (Henoch Schonlein purpura) (CMS/HCC) ALBUMIN, RANDOM URINE W/CREATININE Routine 11/25/2024 11:42 AM EST HSP (Henoch Schonlein purpura) (CMS/HCC) FERRITIN Routine 11/25/2024 11:42 AM EST Bleeding hemorrhoids HSP (Henoch Schonlein purpura) (CMS/HCC) IRON AND TOTAL IRON BINDING CAPACITY Routine 11/25/2024 11:42 AM EST Bleeding hemorrhoids HSP (Henoch Schonlein purpura) (CMS/HCC) CBC WITH AUTO DIFFERENTIAL Routine 11/25/2024 11:42 AM EST Bleeding hemorrhoids HSP (Henoch Schonlein purpura) (CMS/HCC) LIPID PANEL, STANDARD Routine 01/29/2024 10:40 AM EDT Dyslipidemia HIV 1/2 ANTIGEN/ANTIBODY, FOURTH GENERATION W/RFL Routine 09/17/2022 10:35 AM EST [facility] HISTORICAL HEPATITIS B SURFACE ANTIBODY Routine 12/29/2020 11:00 AM EST HPV HIGH RISK PCR Routine 01/14/2019 12: 00 AM EDT PAP SMEAR Routine 01/14/2019 12:00 AM EDT from Last 3 Months or Most Recently Relevant to Health Maintenance Results * (ABNORMAL) Albumin, Random Urine W/Creatinine (11/25/2024 11:42 AM EST) Creatinine, Urine 51.41 mg/dL [facility] Microalbumin Urine 19.0 mg/L H [facility] Microalbum Creatinine Ratio Ur 36.9(H) <30 ug/mg cr [facility] Comment:Albumin/Creatinine R atio Reference Ranges: Normal: < 30 ug/mg creatinine Microalbuminuria: 30 - 300 ug/mg creatinineClinical Albuminuria: > 300 ug/mg creatinine Urine 11/25/2024 11:4 2 AM EST 11/25/2024 1:45 PM EST Gloria Irizarry MD LAB URINE ORDERABLES Final Result [facility] [address] [place] [address] [phone] * CBC auto differential (11/25/2024 11:42 AM EST) White Blood Count 7.8 4.8 - 10.8 X10*3/uL [facility] Red Blood Count 4.40 4.20 - 5.50 X10*6/uL [facility] Hemoglobin 12.6 12.0 - 16.0 g/dl [facility] Hematocrit 38.7 37.0 - 47.0 % [facility] Mean Corpuscular Volume 88.0 80.0 - 98.0 fL [facility] Mean Corpuscular Hemoglobin 28.6 27.0 - 33.0 pg [facility] Mean Corpuscular HGB Conc 32.6 31.0 - 35.0 g/dl [facility] Red Cell Distribution Width 13.1 11.0 - 16.0 % [facility] Platelet Count 278 160 - 400 X10*3/uL [facility] Mean Platelet Volume 9.9 9.4 - 12.3 fL [facility] Neutrophils Percent Auto 57.6 45 - 73 % [facility] Imm Gran Pct Auto 0.4 0.0 - 0.4 % [facility] Lymphocytes Percent Auto 32.2 20 - 40 % [facility] Monocytes Percent Auto 9.1 2 - 11 % [facility] Eosinophils Percent Auto 0.6 0 - 4 % [facility] Basophils Percent Auto 0.1 0 - 2 % [facility] NRBC Pct Auto 0.0 0.0 - 0.2 /100WBC [facility] Neutrophils Absolute Auto 4.5 2.0 - 8.3 x10*3/uL [facility] Imm Gran Abs Auto 0.03 0.00 - 0.03 X10*3/uL [facility] Lymphocytes Absolute Auto 2.5 1.2 - 4.9 X10*3/uL [facility] Monocytes Absolute Auto 0.7 0.1 - 1.2 X10*3/uL [facility] Eosinophils Absolute Auto 0.1 0.0 - 0.4 X10*3/uL [facility] Basophils Absolute Auto 0.0 0.0 - 0.2 X10*3/uL [facility] NRBC Abs Auto 0.000 0.0 - 0.012 X10*3/uL [facility] Blood Venous blood specimen / Unknown 11/25/2024 11:42 AM EST 11/25/2024 1:29 PM EST Gloria Irizarry MD LAB BLOOD ORDERABLES Final Result Performing Organization Address City/[facility]/ZIP Co de Phone Number [facility] [address] [place] [phone] * Iron And Total Iron Binding Capacity (11/25/2024 11:42 AM EST) Iron 51 30 - 160 mcg/dL [facility] Total Iron Binding Capacity 240 228 - 428 mcg/dL [facility] Percent Iron Saturation 21 15 - 50 % [facility] Unsaturated Iron Binding 189 ug/dL [facility] Blood Venous blood specimen / Unknown 11/25/2024 11:42 AM EST 11/25/2024 1:29 PM EST Gloria Irizarry MD LAB BLOOD ORDERABLES Final Result Performing Organization Address City/[facility]/ZIP Co de Phone Number [facility] [address] [place] [phone] * Ferritin (11/25/2024 11:42 AM EST) Ferritin 24 10 - 250 ng/mL [facility] Blood Venous blood specimen / Unknown 11/25/2024 11:42 AM EST 11/25/2024 1:29 PM EST Gloria Irizarry MD LAB BLOOD ORDERABLES Final Result Performing Organization Address [facility]/ZIP Co de Phone Number [facility] [address] [place] [phone] * (ABNORMAL) Basic Metabolic Panel (11/25/2024 11:42 AM EST) Sodium 140 135 - 145 mmol/L [facility] Potassium 4.1 3.3 - 5.1 mmol/L [facility] Chloride 106 96 - 108 mmol/L [facility] Carbon Dioxide 27 22 - 29 mmol/L [facility] Anion Gap 11(L) 12 - 20 [facility] Urea Nitrogen (BUN) 7(L) 9 - 16 mg/dL [facility] Creatinine, Serum 0.70 0.5 - 1.4 mg/dL [facility] Estimated Glomerular Filt Rate >60 [facility] Comment:Chronic Kidney Disea se: Estimated GFR < 60 mL/min/[id number] Kidney Disease: Estimated GFR < 15 mL/min/1.73m2 Glucose 89 60 - 115 mg/dL [facility] Calcium 9.1 8.4 - 10.2 mg/dL [facility] Blood Venous blood specimen / Unknown 11/25/2024 11:42 AM EST 11/25/2024 1:29 PM EST Gloria Irizarry MD LAB BLOOD ORDERABLES Final Result Performing Organization Address City/[facility]/ZIP Co de Phone Number [facility] [address] [place] [phone] * (ABNORMAL) Lipid Panel, Standard (01/29/2024 10:40 AM EDT) Triglycerides 90 <150 mg/dL [facility] Comment:Desirable Triglyceri de: less than 150 mg/dLBorderline High Triglyceride 150-199 mg/dLHigh Triglyceride: 200-499 mg/dLVery High Triglyceride: greater than or equal to 5OO mg/dL Cholesterol 163 <200 mg/dL [facility] Comment:Desirable Cholestero l: less than 200 mg/dLBorderline High Cholesterol: 200-239 mg/dLHigh Cholesterol: greater than 239 mg/dL LDL Cholesterol Calculated 100(H) <100 mg/dL [facility] Comment:Desirable LDL: less than 100 mg/dLNear Optimal/Above Optimal LDL: 110- 129 mg/dLBorderline High LDL: 130-159 mg/dLHigh LDL: 160-189 mg/dLVery High LDL: greater than or equal to 190 mg/dL HDL Cholesterol 45 >40 mg/dL [facility] Comment:Desirable HDL: great er than 40 mg/dL Note: This HDL assay may give artificially low results in patients with liver disease. Blood Venous blood specimen / Unknown 01/29/2024 10:40 AM EDT 01/29/2024 1:11 PM EDT us Gloria Irizarry MD LAB BLOOD ORDERABLES Final Result [facility] [address] [place] [address] [phone] * HIV 1/2 ANTIGEN/ANTIBODY,FOURTH GENERATION W/RFL (09/17/2022 10:35 AM EST) HIV-1/2 ANTIGEN AND ANTIBODIES, 4TH GENERATION W/ REFLEX NON-REACT TIKA NON-REACT TIKA [facility] Comment: HIV-1 antigen and HIV-1/HIV-2 antibodies were not detected. There is no laboratory evidence of HIV infection. ?? PLEASE NOTE: This information has been disclosed to you from records whose confidentiality may be protected by state law. ??If your state requires such protection, then the state law prohibits you from making any further disclosure of the information without the specific written consent of the person to whom it pertains, or as otherwise permitted by law. A general authorization for the release of medical or other information is NOT sufficient for this purpose. ? For additional information please refer to http://[email or web address]/faq/YPJ004 (This link is being provided for informational/ educational purposes only.) ? The performance of this assay has not been clinically validated in patients less than 2 years old. ?? 09/17/2022 10:3 5 AM EST Gloria Irizarry MD LAB BLOOD ORDERABLES Final Result Performing Organization Address City/[facility]/ZIP Co de Phone Number [facility] * HEPATITIS B SURFACE ANTIBODY (12/29/2020 11:00 AM EST) Hepatitis B Surface Antibody REACTIVE Nonreactive [facility] Comment:REACTIVE: > 11.99 mI U/mL Hepatitis C Antibody Nonreactive Nonreactive [facility] Comment: Antibodies to HCV not detected; does not exclude early acute HCV infection. Hepatitis B Surface Antigen Negative Negative [facility] 12/29/2020 11:0 0 AM EST Torey Duggan MD HISTORICAL/NON ORDERABLE LABS Final Result Performing Organization Address [facility] Co de Phone Number [facility] [address] * HPV High Risk PCR (01/14/2019 12:00 AM EDT) Swab Cervical swab / Unknown Historical Provider LAB MICROBIOLOGY - GENERA L ORDERABLES Final Result Performing Organization Address [facility]/ZIP Co de Phone Number [facility] [address] [place] [address] [phone] * Pap Smear (01/14/2019 12:00 AM EDT) Swab Gloria Irizarry MD LAB CYTOLOGY ORDERABLES Fi nal Result Performing Organization Address [facility] Co de Phone Number [facility] [address] [place] [address] [phone] from Last 3 Months or Most Recently Relevant to Health Maintenance Insurance [employer] PPO Advance Directives Documents on File Type Date Recorded Patient Pediatric Allergist Expl anation Advance Directives and Living Will 11/25/2024 Health Care Proxy 11/25/24 Care Teams Belt Turner Relationship Specialty Start Date End Date Avinger, MD Gloria [address] [place] [phone] PCP - General Family Medicine 02/10/20
--- OUTSIDE RECORDS SUMMARY | 2024-11-28 10:13 | XMS_ITS | Encounter Summary ---
Author Organization [employer] [facility] Address [address] [place] [address] [address] [address] Care Team Providers Care Respiratory Therapy Director Name Role Phone Gloria Irizarry MD Primary Care Provider [phone] Reason for Visit * Reason Comments Med Refill Encounter Details Date Type Department Care Team (Late st Contact Info) Description 11/08/2023 Refill [facility] [address] [place] [address] [phone] Gloria Irizarry MD [address] [place] [address] [phone] Allergic rhinitis, unspecified seasonality, unspecified trigger Social [...] Description 12/26/2024 9:00 AM EST Office Visit [facility] [address] [place] [address] [phone] Gloria Irizarry MD [address] [place] [address] [phone] documented as of this encounter Visit Diagnoses Diagnosis Allergic rhinitis, unspecified seasonality, unspecified trigger Dietary counseling Dietary surveillance and counseling Exercise counseling Class 3 severe obesity due to excess calories without serious comorbidity with body mass index (BMI) of 45.0 to 49.9 in adult (CMS/[facility]) documented in this encounter Care Teams Respiratory Therapy Director Relationship Specialty Start Date End Date Gloria Irizarry MD [address] [place] [phone] PCP - General Family Medicine 02/10/20 documented as of this encounter
--- OUTSIDE RECORDS SUMMARY | 2024-11-28 10:14 | XMS_ITS | Clinical Summary ---
Author Organization [facility] ity Address [address] [place] [address] Care Team Providers Care Histopathologist Name Role Phone Unavailable Primary Care Provider Unavailabl e Social History Tobacco Use Types Packs/Day Years Used Date Smoking Tobacco: Never Assessed Sex and Gender Information Value Date Recorded Sex Assigned at Not on file Gender Identity Not on file Sexual Orientation Not on file Plan of Treatment Health Maintenance Due Date Last Done Comments Breast Cancer Screening 1984 DTaP,Tdap,and Td Vaccines (1 - Tdap) 2003 Hepatitis B Vaccines (1 of 3 - 19+ 3-dose series) 2003 Cervical Cancer Screening: P ap Smear 2005 Depression Screening 11/20/2023 HIV Screening 11/20/2023 Hepatitis C Screening 11/20/2023 Social Influencers of Health Screening 11/20/2023 COVID-19 Vaccine (2023-2 5 season) 2024 Influenza Vaccine (#1) 2024 HIB Vaccines Aged Out No longer eligi ble based on patient's age to complete this topic HPV Vaccines Aged Out No longer eligi ble based on patient's age to complete this topic Hepatitis A Vaccines Aged Out No long er eligible based on patient's age to complete this topic IPV Vaccines Aged Out No longer eligi ble based on patient's age to complete this topic MMR Vaccines Aged Out No longer eligi ble based on patient's age to complete this topic Meningococcal ACWY Vaccine Aged Out N o longer eligible based on patient's age to complete this topic Pneumococcal Vaccine: Pediat rics (0 to 5 Years) and At-Risk Patients (6 to 64 Years) Aged Out No longer eligible b ased on patient's age to complete this topic RSV Immunization Patients Un naga 20 months Aged Out No longer eligible b ased on patient's age to complete this topic Varicella Vaccines Aged Out No longer eligible based on patient's age to complete this topic
[2024-12-04 20:03] LABS: C. trachomatis RNA TMA Not Detected (Not Detected); N. gonorrhoeae RNA TMA Not Detected (Not Detected); Trichomonas (NAAT) Not Detected (Not Detected)
== END 2024-11-28 09:41 | disposition home or self-care (01) ==
LOC: HO.HHCLNP 09:40
PROVIDERS: Visit Provider Family Medicine
DX: Z12.4 Encounter for screening for malignant neoplasm of cervix (principal); Z11.3 Encounter for screening for infections with a predominantly sexual mode of transmission
CPT/HCPCS: 87491; 87591; 87626; 87661; 88175

== ENCOUNTER 2025-07-20 11:03 | Outpatient (REF) | payer OTHER, MEDICAID, SELFPAY ==
--- NOTE | ~2025-07-20 | XR_ITS ---
EXAMINATION: XR FOOT 3 OR MORE VIEWS RIGHT HISTORY: chronic right heel pain COMPARISON: There are no prior studies available for comparison. FINDINGS: Three views of the right foot are submitted. Osseous mineralization is normal. There is no fracture or dislocation. There is mild narrowing of the 1st MTP joint. There is a small plantar calcaneal spur. The soft tissues are unremarkable. XR/XR foot RT min 3V IMPRESSION: Small plantar calcaneal spur. Mild narrowing of the 1st MTP joint. Electronically signed by: Terrance Deal MD 07/20/2025 12:37 PM EDT
--- OUTSIDE RECORDS SUMMARY | 2025-07-20 10:00 | XMS_ITS | Encounter Summary ---
Author Organization [employer] Address [address] [place] [address] Care Team Providers Care Relay Assembler Name Role Phone Gloria Irizarry MD Primary Care Provider [phone] Reason for Referral * Consultation (Routine) - Authorized Specialty Diagnoses / Procedures Referred By Elinor brody Referred To Contact Podiatry Diagnoses Chronic heel pain, right Gloria Irizarry MD [address] [place] [phone] Phone: tel: fax: Owen Wang DPM [address] [facility] [address] [place] [address] Phone: tel: fax: Referral ID Status Reason Start Date Expiration Date Visits Requested Visits Authorized [id number] Authorized Specialty Services Required 07/20/2025 07/20/2026 1 1 Reason for Visit * Reason Comments Annual Exam Encounter Details Date Type Department Care Team (Late st Contact Info) Description 07/20/2025 10:00 AM EDT Office Visit [facility] [address] [place], [place] [phone] Gloria Irizarry MD [address] [place], [place] [phone] Elevated LDL cholesterol level (Primary Dx); Gastroesophageal reflux disease, unspecified whether esophagitis present; Steatosis of liver; Hemorrhoids, unspecified hemorrhoid type; Chronic heel pain, right; HSP (Henoch Schonlein purpura) (CMS/HCC); IgA nephropathy; Class 3 severe obesity due to excess calories with serious comorbidity and body mass index (BMI) of 45.0 to 49.9 in adult; Anxiety; Dietary counseling; Exercise counseling; Tobacco dependence syndrome; Encounter for immunization; Bilateral deafness; Other specified health status Social History Tobacco Use Types Packs/Day Years [...] Sign Reading Time Taken Comments Blood Pressure 120/72 07/20/2025 10:18 AM EDT Pulse 106 07/20/2025 10:18 AM EDT Temperature 37.2 C (98.9 F) 07/20/2025 10:18 AM EDT Respiratory Rate 20 07/20/2025 10:18 AM EDT Oxygen Saturation 98% 07/20/2025 10:18 AM EDT Inhaled Oxygen Concentration - - Weight 118 kg (260 lb 3.2 oz) 07/20/2025 10:18 A M EDT Height - - Body Mass Index 45.37 11/25/2024 10:46 AM EST documented in this encounter Progress Notes * Gloria Irizarry MD - 07/20/2025 10:00 AM EDT Basia Richards is a 39 y.o. female with a past medical history of generalized anxiety disorder, bilateral deafness, IgA nephropathy, and history of HSP who presents to the office today for chronic medicalconditions and comprehensive annual evaluation. Swedish Sign Language used during visit. Pt reports she has been having pain in her right foot that is worse when walking, has tried tappingin the past. Pain is concentrated at the heel. She denies any trauma, and reports symptoms have bene ongoing for about a year. Has not seen a specialist and agrees to referral. Denies previous imaging. Saw a GI doctor and was told she might have to get a gastric sleeve, so she tried an exercise plan and diet plan as told by the doctor without much help. She declined GLP-1 due to concerns about sideeffects. Pt notes her had a gastric sleeve so she is very familiar with the procedure and postprocedure symptom management. Wants to proceed with the sleeve. Encouraged to call weight loss clinic for referral and procedure set-up. She also reports she has a hemorrhoid and she cannot poop without taking a medication and if she misses a dose she becomes constipated. Pt reports she has quit smoking about 2 years ago and cut down on vaping. Social History Tobacco: quit cigarettes, occasional vaping, has cut down. Drugs: none Alcohol: No Sexuality: Denies current sexual activity Suicide/Depression: The patient denies any present symptoms of depression or anxiety. Review of Systems Constitutional: Negative for fatigue, fever and unexpected weight change. Respiratory: Negative for cough. Cardiovascular: Negative for chest pain. Gastrointestinal: Positive for constipation and rectal pain. Negative for abdominal pain. Genitourinary: Negative for difficulty urinating. Musculoskeletal: Positive for arthralgias. Current Medications[1] Allergies[2] Medical History[3] Surgical History[4] Family History[5] Objective Visit Vitals BP 120/72 (BP Location: Left arm, Patient Position: Sitting, BP Cuff Size: Adult) Pulse 106 Temp 98.9 ??F (37.2 ??C) (Temporal) Resp 20 Wt 260 lb 3.2 oz (118 kg) SpO2 98% BMI 45.37 kg/m?? Smoking Status Former BSA 2.3 m?? Physical Exam Constitutional: Appearance: Normal appearance. HENT: Head: Normocephalic. Right Ear: Tympanic membrane normal. Left Ear: Tympanic membrane normal. Ears: Comments: Bilateral deafness. Mouth/Throat: Pharynx: Oropharynx is clear. Eyes: Pupils: Pupils are equal, round, and reactive to light. Cardiovascular: Rate and Rhythm: Normal rate and regular rhythm. Heart sounds: Normal heart sounds. Pulmonary: Effort: Pulmonary effort is normal. Breath sounds: Normal breath sounds. Chest: Breasts: Nando Score is 5. Breasts are symmetrical. Right: Normal. No inverted nipple, mass, nipple discharge or skin change. Left: Normal. No inverted nipple, mass, nipple discharge or skin change. Abdominal: General: Abdomen is flat. Palpations: There is no mass. Tenderness: There is no abdominal tenderness. Musculoskeletal: General: Normal range of motion. Cervical back: Normal range of motion and neck supple. Lymphadenopathy: Cervical: No cervical adenopathy. Upper Body: Right upper body: No supraclavicular or axillary adenopathy. Left upper body: No supraclavicular or axillary adenopathy. Skin: General: Skin is warm and dry. Neurological: General: No focal deficit present. Mental Status: She is alert. Psychiatric: Behavior: Behavior normal. 39 y.o. female annual evaluation. Assessment & Plan Elevated LDL cholesterol level Lab Results Component Value Date CHOL 163 01/29/2024 TRIG 90 01/29/2024 HDL 45 01/29/2024 LDLCHOLCAL 100 (H) 01/29/2024 -continue lifestyle modification -ordered repeat FLP and HFP 07/20/25 Orders: Hepatic Function Panel; Future Lipid Panel, Standard; Future Gastroesophageal reflux disease, unspecified whether esophagitis present Suspect new onset GERD. Reports symptoms of Intermittent abdominal pain with burning sensation. -prescribed omeprazole OTC (PriLOSEC OTC) 20 MG EC 11/25/24 Steatosis of liver Lab Results Component Value Date TOTALBILIRUB 0.3 01/29/2024 AST 15 01/29/2024 ALT 16 01/29/2024 ALT 18 09/17/2022 ALP 80 01/29/2024 FERRITIN 24 11/25/2024 -ordered repeat HFP 07/20/25 Hemorrhoids, unspecified hemorrhoid type -prescribed cream 07/20/25 Orders: Hydrocortisone, Perianal, (Preparation H) 1 % cream; Apply to anal area bid prn Chronic heel pain, right Ongoing x1 year. Worse with walking. No previous imaging, has tried Orders: XR Foot 3+ Views Right; Future Referral to Podiatry; Future HSP (Henoch Schonlein purpura) (CMS/HCC) History of HSP/IgA nephropathy requiring hospitalization at [facility] in 2011, recurrence in 2014, with rash starting on 12/23/2020 concerning for HSP flair. Baseline labs obtained 12/29/2020 revealedUA with 5-9 RBC and normal Creatinine of 0.80. Pt saw Dr. Torey Duggan in office 12/27/2020. Rash improved and Labs 01/18 with improved Cr and UA 1-4 RBC. Reports rash almost resolved 01/28/2021 IgA nephropathy Orders: Albumin, Random Urine W/Creatinine; Future Basic Metabolic Panel; Future Class 3 severe obesity due to excess calories with serious comorbidity and body mass index (BMI) of45.0 to 49.9 in adult Discussed weight, diet, exercise with patient in relation to health conditions. Used motivational interviewing to illicit change talk and established initial goals with patient. Orders: TSH with Reflex to Free T4; Future Hemoglobin A1c; Future Anxiety -on clonazepam 0.5mg and take as need Dietary counseling Dietary Recommendations: Fruits, vegetables, whole grains, protein foods, and fat-free or low-fat dairy products are healthychoices. Eat different types of protein foods in your diet. This can include seafood, lean meats, poultry, beans, peas, lentils, nuts, seeds, soy products, and eggs. Limit foods and beverages higher in added sugars, saturated fat, and sodium. Exercise counseling Exercise Recommendations: At least 150 minutes of moderate-intensity physical activity per week, or an equivalent combinationof moderate- and vigorous-intensity activity. Tobacco dependence syndrome Use to smoke 5 cig per day -Quit february 2024. Encounter for immunization Orders: FLU VACCINE TRIVALENT [id number] (Fluarix) 6 mo + Bilateral deafness -remote sensing technician needed for all speciality visits Other specified health status -next comprehensive annual evaluation due after 07/20/26 -eye care facilitated by Dr. Young [place]. -dental home is [facility] - Health care proxy paperwork provided to the patient 01/29/24, filed 11/25/24 Annual Evaluation -Normal growth and development. -Anticipatory guidance discussed. -Preventative care / harm reduction discussed. Follow up in about 1 year (around 07/20/2026) for physical. I, Anjelica Ocampo, am serving as a scribe to document services personally performed by Dr. Bills, based on the patient's response to questions by provider and providers statements to me. [1] Current Outpatient Medications: clonazePAM (KlonoPIN) 0.5 MG tablet, Take 1 tablet (0.5 mg) by mouth if needed each day for anxiety., Disp: 15 tablet, Rfl: 2 dicyclomine (Bentyl) 10 MG capsule, , Disp: , Rfl: EPINEPHrine (Epipen) 0.3 MG/0.3ML injection syringe, Inject 0.3 mL (0.3 mg) as directed 1 (one) time if needed for anaphylaxis for up to 1 dose. Inject into upper leg. Call 911 after use., Disp: 1 each, Rfl: 0 fluticasone (Flonase) 50 MCG/ACT nasal spray, SPRAY 2 SPRAYS INTO EACH NOSTRIL EVERY DAY, Disp: 48 mL, Rfl: 0 Hydrocortisone, Perianal, (Preparation H) 1 % cream, Apply to anal area bid prn, Disp: 30 g, Rfl: 2 ipratropium (Atrovent) 0.03 % nasal spray, Administer 2 sprays into each nostril every 12 (twelve) hours., Disp: 30 mL, Rfl: 12 loratadine (Claritin) 10 MG tablet, TAKE 1 TABLET BY MOUTH EVERY DAY, Disp: 90 tablet, Rfl: 1 omeprazole (PriLOSEC) [address] capsule, TAKE 1 CAPSULE BY MOUTH EVERY DAY NEEDED FOR GERD., Disp: 30 capsule, Rfl: 11 Ncqgnbyi-Alq-Re-FA ( 1 + IRON PO), Take by mouth., Disp: , Rfl: [2] Allergies Allergen Reactions Bee Venom Fish Allergy Other reaction(s): Unknown Nsaids Unknown Valacyclovir Other reaction(s): Unknown [3] Past Medical History: Diagnosis Date Bilateral deafness 11/08/2018 -remote sensing technician needed for all speciality visits HSP (Henoch Schonlein purpura) (CMS/HCC) 11/08/2018 History of HSP/IgA nephropathy requiring hospitalization at [facility] in 2011, recurrence in 2014, with rash starting on 12/23/2020 concerning for HSP flair. Baseline labs obtained 12/29/2020 revealedUA with 5-9 RBC and normal Creatinine of 0.80. Pt saw Dr. Torey Duggan in office 12/27/2020. Rash improved and Labs 01/18 with improved Cr and UA 1-4 RBC. Reports rash almost resolved 01/28/2021, IgA nephropathy 11/08/2018 Tobacco dependence syndrome 08/14/2023 -5 cig per day [4] No past surgical history on file. [5] Family History Family history unknown: Yes documented in this encounter Miscellaneous Notes * Assessment & Plan Note - Gloria Irizarry MD - 07/20/2025 10:00 AM EDT Associated Problem(s): Elevated LDL cholesterol level Lab Results Component Value Date CHOL 163 01/29/2024 TRIG 90 01/29/2024 HDL 45 01/29/2024 LDLCHOLCAL 100 (H) 01/29/2024 -continue lifestyle modification -ordered repeat FLP and HFP 07/20/25 Orders: Hepatic Function Panel; Future Lipid Panel, Standard; Future * Assessment & Plan Note - lGoria Irizarry MD - 07/20/2025 10:00 AM EDT Associated Problem(s): Gastroesophageal reflux disease Suspect new onset GERD. Reports symptoms of Intermittent abdominal pain with burning sensation. -prescribed omeprazole OTC (PriLOSEC OTC) 20 MG EC 11/25/24 * Assessment & Plan Note - Gloria Irizarry MD - 07/20/2025 10:00 AM EDT Associated Problem(s): Steatosis of liver Lab Results Component Value Date TOTALBILIRUB 0.3 01/29/2024 AST 15 01/29/2024 ALT 16 01/29/2024 ALT 18 09/17/2022 ALP 80 01/29/2024 FERRITIN 24 11/25/2024 -ordered repeat HFP 07/20/25 * Assessment & Plan Note - Gloria Irizarry MD - 07/20/2025 10:00 AM EDT Associated Problem(s): Anxiety -on clonazepam 0.5mg and take as need * Assessment & Plan Note - Gloria Irizarry MD - 07/20/2025 10:00 AM EDT Associated Problem(s): Tobacco dependence syndrome Use to smoke 5 cig per day -Quit february 2024. * Assessment & Plan Note - Gloria Irizarry MD - 07/20/2025 10:00 AM EDT Associated Problem(s): Other specified health status -next comprehensive annual evaluation due after 07/20/26 -eye care facilitated by Dr. Young [place]. -dental home is [facility] - Health care proxy paperwork provided to the patient 01/29/24, filed 11/25/24 * Assessment & Plan Note - Gloria Irizarry MD - 07/20/2025 10:00 AM EDT Associated Problem(s): Bilateral deafness -remote sensing technician needed for all speciality visits * Assessment & Plan Note - Gloria Irizarry MD - 07/20/2025 10:00 AM EDT Associated Problem(s): Class 3 severe obesity due to excess calories with serious comorbidity and body mass index (BMI) of 45.0 to 49.9 in adult Discussed weight, diet, exercise with patient in relation to health conditions. Used motivational interviewing to illicit change talk and established initial goals with patient. Orders: TSH with Reflex to Free T4; Future Hemoglobin A1c; Future * Assessment & Plan Note - Gloria Irizarry MD - 07/20/2025 10:00 AM EDT Associated Problem(s): HSP (Henoch Schonlein purpura) ([facility] History of HSP/IgA nephropathy requiring hospitalization at [facility] in 2011, recurrence in 2014, with rash starting on 12/23/2020 concerning for HSP flair. Baseline labs obtained 12/29/2020 revealedUA with 5-9 RBC and normal Creatinine of 0.80. Pt saw Dr. Torey Duggan in office 12/27/2020. Rash improved and Labs 01/18 with improved Cr and UA 1-4 RBC. Reports rash almost resolved 01/28/2021 * Assessment & Plan Note - Gloria Irizarry MD - 07/20/2025 10:00 AM EDT Associated Problem(s): IgA nephropathy Orders: Albumin, Random Urine W/Creatinine; Future Basic Metabolic Panel; Future documented in this encounter Plan of Treatment Scheduled Referrals Name Type Priority Associated Diagnoses Orde r Schedule Referral to Podiatry Outpatient Referral Routine Chronic heel pain, right Expected: 07/20/2025 (Approximate), Expires: 07/20/2026 documented as of this encounter Procedures Procedure Name Priority Date/Time Associated Diagnosis Comments XR FOOT 3+ VIEWS RIGHT Routine 07/20/2025 12:30 PM EDT Chronic heel pain, right TSH W/REFLEX TO FT4 Routine 07/20/2025 1 1:20 AM EDT Class 3 severe obesity due to excess calories with serious comorbidity and body mass index (BMI) of 45.0 to 49.9 in adult ALBUMIN, RANDOM URINE W/CREATININE Routine 07/20/2025 11:20 AM EDT IgA nephropathy HEMOGLOBIN A1C Routine 07/20/2025 11:20 AM EDT Class 3 severe obesity due to excess calories with serious comorbidity and body mass index (BMI) of 45.0 to 49.9 in adult HEPATIC FUNCTION PANEL Routine 07/20/2025 11:20 AM EDT Elevated LDL cholesterol level LIPID PANEL, STANDARD Routine 07/20/2025 11:20 AM EDT Elevated LDL cholesterol level BASIC METABOLIC PANEL Routine 07/20/2025 11:20 AM EDT IgA nephropathy documented in this encounter Results * XR Foot 3+ Views Right (07/20/2025 12:30 PM EDT) Anatomical Region Laterality Modality Lower Extremities, Foot Right [facility] 07/20/2025 12:3 0 PM EDT Narrative 07/20/2025 12:40 PM EDT [address] [address] XRay Report Signed Patient: Susie Blackwood MR#: [id number] : 1985 Acct:[id number] Age/Sex: 39 / F ADM Date: 07/20/25 Loc: [facility]HCX Attending Dr: Gloria Irizarry MD Ordering Physician: Gloria Irizarry MD Date of Service: 07/20/25 Procedure(s): XR foot RT min 3V Accession Number(s): [id number] cc: Gloria Irizarry MD Reason for Exam: chornic right heel pain EXAMINATION: XR FOOT 3 OR MORE VIEWS RIGHT HISTORY: chronic right heel pain COMPARISON: There are no prior studies available for comparison. FINDINGS: Three views of the right foot are submitted. Osseous mineralization is normal. There is no fracture or dislocation. There is mild narrowing of the 1st MTP joint. There is a small plantar calcaneal spur. The soft tissues are unremarkable. XR/XR foot RT min 3V IMPRESSION: Small plantar calcaneal spur. Mild narrowing of the 1st MTP joint. Electronically signed by: Terrance Deal MD 07/20/2025 12:37 PM EDT RP Dictated By: Terrance Deal MD Signed By: <Electronically signed by Terrance Deal MD in OV> 07/20/25 1237 DD/ 1230 TD/TT: 07/20/25 1232 Director Of Hospitality: Procedure Note Donotuseinterpreter, Image - 07/20/[address] [address] XRay Report Signed Patient: Susie Blackwood [facility]#: [id number] : 1985Acct:[id number] Age/Sex: 39 / FADM Date: 07/20/25 [facility]: Gloria Irizarry MD Ordering Physician: Gloria Irizarry MD Date of Service: 07/20/25 Procedure(s): XR foot RT min 3V Accession Number(s): [id number] cc: Gloria Irizarry MD Reason for Exam: chornic right heel pain EXAMINATION: XR FOOT 3 OR MORE VIEWS RIGHT HISTORY: chronic right heel pain COMPARISON: There are no prior studies available for comparison. FINDINGS: Three views of the right foot are submitted. Osseous mineralization is normal. There is no fracture or dislocation. There is mild narrowing of the 1st MTP joint. There is a small plantar calcaneal spur. The soft tissues are unremarkable. XR/XR foot RT min 3V IMPRESSION: Small plantar calcaneal spur. Mild narrowing of the 1st MTP joint. Electronically signed by: Terrance Deal MD 07/20/2025 12:37 PM EDT RP Dictated By: Terrance Deal MD Signed By: <Electronically signed by Terrance Deal MD in OV> 07/20/25 1237 DD/ 1230 TD/TT: 07/20/25 1232 Director Of Hospitality: Gloria Irizarry MD IMG XR PROCEDURES Final Re sult * (ABNORMAL) Basic Metabolic Panel (07/20/2025 11:20 AM EDT) Sodium 141 135 - 145 mmol/L [facility] Potassium 4.6 3.3 - 5.1 mmol/L [facility] Chloride 108 96 - 108 mmol/L [facility] Carbon Dioxide 26 22 - 29 mmol/L [facility] Anion Gap 12 12 - 20 [facility] Urea Nitrogen (BUN) 8(L) 9 - 16 mg/dL [facility] Creatinine, Serum 0.69 0.5 - 1.4 mg/dL [facility] Estimated Glomerular Filt Rate >60 [facility] Comment:Chronic Kidney Disea se: Estimated GFR < 60 mL/min/1.85m7Fsohxf Kidney Disease: Estimated GFR < 15 mL/min/1.73m2 Glucose 91 60 - 115 mg/dL [facility] Calcium 8.8 8.4 - 10.2 mg/dL [facility] Blood Venous blood specimen / Unknown 07/20/2025 11:20 AM EDT 07/20/2025 1:06 PM EDT Gloria Irizarry MD LAB BLOOD ORDERABLES Final Result [facility] [address] [place] [phone] * Hemoglobin A1c (07/20/2025 11:20 AM EDT) Hemoglobin A1c 5.7 <6.0 % [facility] Comment:Hemoglobin A1C Refer ence Range Adults: 4.8 - 6.0 % Non diabetic: < 6.0 % Goal: < 7.0 %Additional Action Suggested: > 8.0 %Note: Hemoglobin A1c results are invalid for patients with abnormal amounts of HbF. Blood transfusions may impact the HbA1c concentration in the patient sample. Estimated Average Glucose 117 mg/dL [facility] Comment:eAG = Estimated ave rage glucose which is %A1C expressed asaverage glucose, using the formula of the [id number] Glucose study (ADAG), Diabetes Care, Vol.31,#8,May. 2007 Blood Venous blood specimen / Unknown 07/20/2025 11:20 AM EDT 07/20/2025 1:06 PM EDT Gloria Irizarry MD LAB BLOOD ORDERABLES Final Result Performing Organization Address City/[facility]/ZIP Co de Phone Number [facility] [address] [place] [phone] * Lipid Panel, Standard (07/20/2025 11:20 AM EDT) Triglycerides 68 <150 mg/dL [facility] Comment:Desirable Triglyceri de: less than 150 mg/dLBorderline High Triglyceride 150-199 mg/dLHigh Triglyceride: 200-499 mg/dLVery High Triglyceride: greater than or equal to 5OO mg/dL Cholesterol 142 <200 mg/dL [facility] Comment:Desirable Cholestero l: less than 200 mg/dLBorderline High Cholesterol: 200-239 mg/dLHigh Cholesterol: greater than 239 mg/dL LDL Cholesterol Calculated 82 <100 mg/dL [facility] Comment:Desirable LDL: less than 100 mg/dLNear Optimal/Above Optimal LDL: 110- 129 mg/dLBorderline High LDL: 130-159 mg/dLHigh LDL: 160-189 mg/dLVery High LDL: greater than or equal to 190 mg/dL HDL Cholesterol 47 >40 mg/dL [facility] Comment:Desirable HDL: great er than 40 mg/dL Note: This HDL assay may give artificially low results in patients with liver disease. Blood Venous blood specimen / Unknown 07/20/2025 11:20 AM EDT 07/20/2025 1:06 PM EDT Gloria Irizarry MD LAB BLOOD ORDERABLES Final Result Performing Organization Address City/[facility]/ZIP Co de Phone Number [facility] [address] [place] [phone] * Hepatic Function Panel (07/20/2025 11:20 AM EDT) Bilirubin, Total 0.3 0.0 - 1.0 mg/dL [facility] Bilirubin, Direct 0.2 0.0 - 0.5 mg/dL [facility] Aspartate Amino Transferase 30 5 - 31 U/L [facility] Alanine Aminotransferase 20 0 - 31 U/L [facility] Total Protein 7.2 6.5 - 8.0 g/dL [facility] Albumin Level 3.7 3.5 - 5.0 g/dL [facility] Alkaline Phosphatase 68 39 - 117 U/L [facility] Blood Venous blood specimen / Unknown 07/20/2025 11:20 AM EDT 07/20/2025 1:06 PM EDT Gloria Irizarry MD LAB BLOOD ORDERABLES Final Result Performing Organization Address [facility] de Phone Number [facility] [address] [place] [phone] * (ABNORMAL) Albumin, Random Urine W/Creatinine (07/20/2025 11:20 AM EDT) Creatinine, Urine 66.09 mg/dL [facility] Microalbumin Urine 37.0 mg/L [facility] Microalbum Creatinine Ratio Ur 55.9(H) <30 ug/mg cr [facility] Comment:Albumin/Creatinine R at Reference Ranges: Normal: < 30 ug/mg creatinine Microalbuminuria: 30 - 300 ug/mg creatinineClinical Albuminuria: > 300 ug/mg creatinine Urine 07/20/2025 11:2 0 AM EDT 07/20/2025 1:06 PM EDT Gloria Irizarry MD LAB URINE ORDERABLES Final Result Performing Organization Address [facility] Co de Phone Number [facility] [address] [place] [phone] * TSH with Reflex to Free T4 (07/20/2025 11:20 AM EDT) TSH reflex Free T4 1.45 0.32 - 4.0 uIU/mL [facility] Blood Venous blood specimen / Unknown 07/20/2025 11:20 AM EDT 07/20/2025 1:06 PM EDT Gloria Irizarry MD LAB BLOOD ORDERABLES Final Result [facility] [address] [place] [phone] documented in this encounter Visit Diagnoses Diagnosis Elevated LDL cholesterol level- Primary Gastroesophageal reflux disease, unspecified whether esophagitis present Steatosis of liver Other chronic nonalcoholic liver disease Hemorrhoids, unspecified hemorrhoid type Chronic heel pain, right HSP (Henoch Schonlein purpura) (CMS/HCC) Allergic purpura IgA nephropathy Nephritis and nephropathy, not specified as acute or chronic, with unspecified pathological lesion in kidney Class 3 severe obesity due to excess calories with serious comorbidity and body mass index (BMI) of 45.0 to 49.9 in adult Anxiety Anxiety state, unspecified Dietary counseling Dietary surveillance and counseling Exercise counseling Tobacco dependence syndrome Tobacco use disorder Encounter for immunization Bilateral deafness Unspecified hearing loss Other specified health status documented in this encounter Additional Health Concerns Assessment Noted Time PHQ-9 Depression Total Score: 1 11/25/19 25 10:49 AM EST documented as of this encounter Care Teams Relay Assembler Relationship Specialty Start Date End Date Gloria Irizarry MD [address] [place] [phone] PCP - General Family Medicine 02/10/20 [facility] [place] [facility] [place] [address] [place] [phone] Gastroenterology 07/20/25 documented as of this encounter
[2025-07-20 13:35] LABS: Hemoglobin A1C 126.8725 umol/L; Total Hemoglobin (HGBA1C) 3246.7872 umol/L
[2025-07-20 13:47] LABS: Alanine Aminotransferase 20 U/L (0-31); Albumin Level 3.7 g/dL (3.5-5.0); Alkaline Phosphatase 68 U/L (39-117); Anion Gap 12 (12-20); Aspartate Amino Transferase 30 U/L (5-31); Blood Urea Nitrogen 8 mg/dL (9-16); Calcium 8.8 mg/dL (8.4-10.2); Carbon Dioxide 26 mmol/L (22-29); Chloride 108 mmol/L (96-108); Cholesterol 142 mg/dL (<200); Estimated Glomerular Filt Rate > 60; HDL Cholesterol 47 mg/dL (>40); Potassium 4.6 mmol/L (3.3-5.1); Sodium 141 mmol/L (135-145); Total Protein 7.2 g/dL (6.5-8.0); Triglycerides 68 mg/dL (<150)
[2025-07-20 14:23] LABS: Microalbum/Creatinine Ratio Ur 55.9 ug/mg cr (<30)
--- OUTSIDE RECORDS SUMMARY | 2025-07-20 15:24 | XMS_ITS | Encounter Summary ---
Author Organization [employer] Address [address] [address] Care Team Providers Care Surgical Processor Name Role Phone Gloria Irizarry MD Primary Care Provider +1- [phone] Reason for Visit * Reason Onset Date Comments Call Back Request 03/24/2025 Encounter Details Date Type Department Care Team ([facility] Contact Info) Description 03/24/2025 Telephone [facility] [address] [place], [place] [phone] Gloria Irizarry MD [address] [place], [place] [phone] Call Back Request Social History Tobacco Use Types Packs/Day [...] is your housing situation today? I have lorenzaelham maynard 11/25/[address] you [...] encounter Miscellaneous Notes * Telephone Encounter - Tiff Mendoza - 03/24/2025 11:38 AM EDT Tc from pt stating had a mammogram yesterday, but today received a call from [facility] saying a new exam is needed. She's scared, and said is too young to have an abnormal result. Pt needing clarification. No recent mammogram results in media. documented in this encounter Plan of Treatment Not on file documented as of this encounter Visit Diagnoses Not on filedocumented in this encounter Additional Health Concerns Assessment Noted Time PHQ-9 Depression Total Score: 1 11/25/19 25 10:49 AM EST documented as of this encounter Care Teams Surgical Processor Relationship Specialty Start Date End Date Gloria Irizarry MD [address] [place] [id number] PCP - General Family Medicine 02/10/[address] [address] Gastroenterology 07/20/25 documented as of this encounter
--- OUTSIDE RECORDS SUMMARY | 2025-07-20 15:25 | XMS_ITS | Encounter Summary ---
Author Organization [facility] Address [address] [place] [address] Phone Care Team Providers Care Certified Medical Aide Name Role Phone Juan C, Gloria Ty MD Primary Care Provider Santosh rudolph Encounter Details Date Type Department Care Team (Late st Contact Info) Description 01/22/2021 Orders Only [facility] [address] [place] [address] Provider, Anna, Social History Tobacco Use Types Packs/Day Years [...] l Result * EXT RESULT ENTRY (01/22/2021) [facility] Provider LAB BLOOD ORDERABLES Alla l Result documented in this encounter Visit Diagnoses Not on filedocumented in this encounter Care Teams Certified Medical Aide Relationship Specialty Start Date End Date Juan C, Gloria Ty MD PCP - General Family Medicine 12/27/20 05/01/21 documented as of this encounter
--- OUTSIDE RECORDS SUMMARY | 2025-07-20 15:25 | XMS_ITS | Clinical Summary ---
Author Organization [facility] Address [address] [address] Phone Care Team Providers Care Concrete Foreman Name Role Phone Unavailable Primary Care Provider Unavailabl e Allergies Active Allergy Reactions Criticality Noted Date Comments Nsaids (Non-Steroidal Anti-I nflammatory Drug) 12/06/2019 Sulfa (Sulfonamide Antibiotics) 11/26 Medications docusate sodium (COLACE) 100 MG capsule Take 100 mg by mouth 2 (two) times a day. Active loratadine (CLARITIN) 10 mg tablet Take 10 mg by mouth daily. Active raNITIdine (ZANTAC) 15 mg/mL syrup Take by mouth 2 (two) times a day. Active clonazePAM (KLONOPIN) 0.5 MG tablet Take 0.5 mg by mouth daily. Active vitamins with ferrous fumarate- folic acid 28 mg iron- 800 mcg Tab Take 1 tablet by mouth daily. 2000 units Active ondansetron (ZOFRAN-ODT) 4 MG disintegrating tablet Take 1 tablet (4 mg total) by mouth every 8 (eight) hours as needed for nausea. 5 tablet 03/05/20 Active Additional Information Patient not taking.Reported on 02/19/2024 cholecalciferol, vitamin D3, (VITAMIN D3 ORAL) Take by mouth. Active omeprazole magnesium (PRILOSEC ORAL) Take by mouth. Active Active Problems Problem Noted Date Diagnosed Date History of Henoch-Schonlein purpura 12/06/2021 Overview (12/06/2021): Dx 2012 Initially followed at [facility] in [place] Saw Dr Duggan at [facility] Nephrology 2019 Assessment & Plan (12/06/2021 2:59 PM EST): Discussed options of returning to [place] for care but this feels unmanageable for her. Generalized anxiety disorder 12/06/2021 Assessment & Plan (12/06/2021 3:03 PM EST): Discussed options regarding psych care. I generally recommend patients who require chronic benzos see a psychiatrist. I am not convinced however that she needs to be on a benzo as she has not tried any SSRIs. Ideally she would not be on a benzo before getting . I have referred her to psychiatry, however given the time frame to establish care vs ideal timeline to , will start with outreach to [facility] program. We discussed that we will likely do a cross taper- start a SSRI and after a few weeks begin a slow klonopin taper. I discouraged stopping klonopin cold turkey which can be dangerous. Morbid obesity 12/06/2021 IgA nephropathy 12/27/2020 Congenital hearing loss of both ears 12/27/2020 Immunizations Immunization Administration Dates Next Due Hepatitis A, Unspecified 09/25/2014,03/28/2014 Hepatitis B Adult 01/29/2024,01/14/2019,12/10/19 19 INFLUENZA, SPLIT VIRUS, TRIVALENT PF 08/12/2017, 09/19/2015 INFLUENZA, SPLIT VIRUS, TRIV ALENT W/ PRESERVATIVE IM 08/10/2014 Influenza High-Dose Quadriva lent Preservative Free IM 11/13/2021 Influenza Quadrivalent Preservative Free IM 08/27,08/11/2020 Influenza, Unspecified Formulation 07/29/2019 MMR 01/14/2019 Pneumococcal polysaccharide PPSV23 09/30/2017 Tdap 09/17/2022 Social History Tobacco Use Types Packs/Day Years Used Date Smoking Tobacco: Former Cigarettes Smokeless Tobacco: Never Tobacco Cessation:Counseling Given: Not Answered Alcohol Use Standard Drinks/Week Comments Never 0 (1 standard drink = 0.6 oz pur e alcohol) Child or Family Care Answer Date Record ed Do you have problems with on e of the following making it difficult for you to work, study, or receive health care? No 12/03/2021 Education Answer Date Recorded Are you interested in more education? Not on debo e 12/09/2023 Are you concerned about learning? Not on file 12/09/2023 No 12/09/2023 No 12/09/2023 Food Answer Date Recorded Within the past 6 months we worried whether our food would run out before we got money to buy more. Never True 12/03/2021 Within the past 6 months the food we bought just didn't last and we didn't have enough money to get more. Never True Residential Stability Answer Date Recor ded What is your housing situation today? I have lorenza sing 12/03/2021 How many times have you move d in the past 12 months? Zero (I did not move) 12/03/2021 06 Are you worried that in t he next 2 months, you may not have your own housing to live in? No 12/03/2021 Paying for Meds Answer Date Recorded Do you have trouble paying for medicines? Yes 12/03/2021 Paying Utility Bills Answer Date Record ed Do you have trouble paying your heating or elect ricity bill? No 12/03/2021 Transportation Answer Date Recorded Has the lack of transportati on kept you from medical appointments or from getting medications? No 12/03/2021 Unemployment Answer Date Recorded Are you currently unemployed or working on a part-time or temporary basis, and looking for work? No 12/03/2021 Digital Access Answer Date Recorded No 03/21/2023 No 03/21/2023 Reliable internet access at home? Not on file 03/21/2023 Device with a working camera? 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 Not on file Not on debo e Not on file Last Filed Vital Signs Vital Sign Reading Time Taken Comments Blood Pressure 124/84 02/19/2024 2:24 PM EDT Pulse 99 03/04/2022 8:48 PM EDT Temperature 37 C (98.6 F) 03/04/2022 8:48 PM EDT Respiratory Rate 16 03/04/2022 8:48 PM EDT Oxygen Saturation 97% 03/04/2022 9:00 PM EDT Inhaled Oxygen Concentration - - Weight 122.5 kg (270 lb) 02/19/2024 2:24 PM EDT Height 162.6 cm (5' 4 ) 02/19/2024 2:24 PM EDT Body Mass Index 46.35 02/19/2024 2:24 PM EDT Plan of Treatment Health Maintenance Due Date Last Done Comments SMOKING Hx and SMOKELESS TOBACCO SCREENING 1997 HEPATITIS C SCREENING 2002 HIV ONE-TIME SCREENING (18-65 YEARS) 2002 PAP SMEAR 2005 DEPRESSION SCREENING 12/03/2022 12/03/2021 MAMMOGRAM 2024 INFLUENZA VACCINE (#1) 2025 , 11/13/2021, 08/11/2020, Additional history exists COVID-19 VACCINE ( season) 2025 01/29/2024, 09/22/2022, 04/12/2021, Additional history exists SCREENING FOR DIABETES 09/17/2025 09/17/2022, 2021 Adult Td,Tdap Booster 09/17/2032 09/17/2022 HEPATITIS A VACCINES Aged Out 09/25/2014, 03/28/20 14 No longer eligible based on patient's age to complete this topic PNEUMOCOCCAL VACCINES (0-49 years) Aged Out 09/30/2017 No longer eligible based on patient's age to complete this topic HIB VACCINES Aged Out No longer eligi ble based on patient's age to complete this topic MENINGOCOCCAL VACCINES (ACWY) Aged Out No longer eligible based on patient's age to complete this topic MENINGOCOCCAL VACCINES (B) Aged Out N o longer eligible based on patient's age to complete this topic Medical Devices Not on file Insurance [employer] PPO Member Subscriber Plan / Payer (Ef fective 2023-) Name:Susie Blackwood Relation to Subscriber:Self Name:Susie Blackwood Payer ID:[id number] ([facility]) Type:PPO Address: [facility] [id number] [place] [id number] [facility] [employer] PPO Member Subscriber Plan / Payer (Ef fective 2023-) Name:Susie Blackwood Relation to Subscriber:Self Name:Susie Blackwood Payer ID:[id number] ([facility]) Type:PPO Address: [facility] [id number] [place] [id number] [facility] [employer]IGNA PPO [facility] CIGNA PPO [facility] [employer] PPO CIGNA PPO CIGNA PPO Additional Source Comments The information contained in this document represents components of the legal health record. It is not the complete legal health record.[facility]
--- OUTSIDE RECORDS SUMMARY | 2025-07-20 15:25 | XMS_ITS | Clinical Summary ---
Author Organization [facility] [place] [facility] Address [address] [place] [address] Care Team Providers Care Electric Clock Mechanic Name Role Phone Unavailable Primary Care Provider [...] of 3 - 19+ 3-dose series) 2003 01/29/2024, 01/14/2019, 12/10/2018 Pneumococcal Vaccine: Peds ( 0 to 5 Years) and At-Risk Patients (6 to 49 Years) (2 of 2 - PCV) 09/30/2018 09/30/2017 Influenza Vaccine (#1) 2025 5, 09/17/2022, 08/11/2020, Additional history exists Pneumococcal Vaccine: 50+ Years Discontinued 7 [place]
--- OUTSIDE RECORDS SUMMARY | 2025-07-20 15:25 | XMS_ITS | Encounter Summary ---
Author Organization [employer] Address [address] [facility] [address] [place] [address] Care Team Providers Care Handle Attacher Name Role Phone Gloria Irizarry MD Primary Care Provider +1- [phone] Encounter Details Date Type Department Care Team ([facility] st Contact Info) Description 07/19/[address] [facility] [address] [place], [place] [phone] Sadie Robertson MA Social History Tobacco Use Types Packs/Day Years [...] encounter Miscellaneous Notes * Telephone Encounter - Sadie Robertson MA - 07/19/2025 1:24 PM EDT Chart Prep Labs: done Images: done Referrals: appointment is pending for nov 02 Vaccines due: Covid, Flu, and HPV Screenings: not applicable Overdue care gaps: Not applicable documented in this encounter Plan of Treatment Not on file documented as of this encounter Visit Diagnoses Not on filedocumented in this encounter Additional Health Concerns Assessment Noted Time PHQ-9 Depression Total Score: 1 11/25/19 25 10:49 AM EST documented as of this encounter Care Teams Handle Attacher Relationship Specialty Start Date End Date Gloria Irizarry MD [address] [place] [address] PCP - General Family Medicine 02/10/20 documented as of this encounter
--- OUTSIDE RECORDS SUMMARY | 2025-07-20 15:26 | XMS_ITS | Encounter Summary ---
Author Organization [employer] Address [address] [place] [address] Care Team Providers Care Environmental Monitoring Technician Name Role Phone Gloria Irizarry MD Primary Care Provider +1- [phone] Reason for Visit * Reason Onset Date Comments Medication Question 11/02/2024 Encounter Details Date Type Department Care Team ([facility] st Contact Info) Description 11/02/2024 Telephone [facility] [address] [place], [place] [phone] Gloria Irizarry MD [address] [place], [place] [phone] Medication Question Social History Tobacco Use Types [...] Miscellaneous Notes * Telephone Encounter - Ellyn Forbes RN - 11/03/2024 3:32 PM EST Telephone [...] with update. 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
--- OUTSIDE RECORDS SUMMARY | 2025-07-20 15:26 | XMS_ITS | Encounter Summary ---
Author Organization [employer] Address [address] [facility] 7 [place] [address] Care Team Providers Care Cans Vacuum Tester Name Role Phone Gloria Irizarry MD Primary Care Provider +1- [phone] Encounter Details Date Type Department Care Team (Latest Contact Info) Description 07/20/2025 Travel Social History Tobacco Use Types Packs/Day [...] Time PHQ-9 Depression Total Score: 1 11/25/19 10:49 AM EST documented as of this encounter Care Teams Cans Vacuum Tester Relationship Specialty Start Date End Date Gloria Irizarry MD [address] [place] [address] PCP - General Family Medicine 02/10/20 [facility] GI [facility] GI [address] [place] [address] Gastroenterology 07/20/25 documented as of this encounter
--- OUTSIDE RECORDS SUMMARY | 2025-07-20 15:26 | XMS_ITS | Encounter Summary ---
Author Organization [email or web address] Address [address] [facility] 7 [place] [address] Care Team Providers Care Aircraft Charter Dispatcher Name Role Phone Gloria Irizarry MD Primary Care Provider +1- [phone] Encounter Details Date Type Department Care Team ([facility] st Contact Info) Description 07/20/2025 Results Follow-Up [facility]INE [address] [place] [address] Gloria Irizarry MD [address] [place] [address] XR Foot 3+ Views Right Social History Tobacco Use Types Packs/Day Years [...] documented as of this encounter Care Teams Aircraft Charter Dispatcher Relationship Specialty Start Date End Date Gloria Irizarry MD [address] [place] [address] PCP - General Family Medicine 02/10/20 [facility] GI [address] [place] [address] Gastroenterology 07/20/25 documented as of this encounter
--- OUTSIDE RECORDS SUMMARY | 2025-07-20 15:26 | XMS_ITS | Clinical Summary ---
Author Organization [employer] Address [address] [place] [id number] Care Team Providers Care Injection Specialist Name Role Phone Gloria Irizarry MD Primary Care Provider [phone] Allergies Active Allergy Reactions Criticality Noted Date Comments Bee Venom 11/08/2024 Fish Allergy 12/10/2018 Other reaction(s): Unknown Nsaids Unknown 11/08/2018 Valacyclovir 12/10/2018 Other reaction(s): Unknown Medications dicyclomine (Bentyl) 10 MG capsuleIndicatio ns:Abdominal pain, unspecified abdominal location 5 Active Kzrqrqpa-Las-Xj- FA ( 1 + IRON PO)Indications:F amily planning Take by mouth. Active EPINEPHrine (Epipen) 0.3 MG/0.3ML injection syringeIndicatio ns:Allergic disorder, sequela Inject 0.3 mL (0.3 mg) as directed 1 (one) time if needed for anaphylaxis for up to 1 dose. Inject into upper leg. Call 911 after use. 1 each 5 Active omeprazole (PriLOSEC) [address] capsuleIndicatio ns:Gastroesophag eal reflux disease, unspecified whether esophagitis present TAKE 1 CAPSULE BY MOUTH EVERY DAY NEEDED FOR GERD. 30 capsule 11 5 Active clonazePAM (KlonoPIN) 0.5 MG tabletIndication s:Anxiety Take 1 tablet (0.5 mg) by mouth if needed each day for anxiety. 15 tablet 2 5 Active ipratropium (Atrovent) 0.03 % nasal sprayIndications :Acute pharyngitis, unspecified etiology Administer 2 sprays into each nostril every 12 (twelve) hours. 30 mL 12 5 03/17/20 26 Active fluticasone (Flonase) 50 MCG/ACT nasal sprayIndications :Allergic rhinitis, unspecified seasonality, unspecified trigger SPRAY 2 SPRAYS INTO EACH NOSTRIL EVERY DAY 48 mL 5 Active loratadine (Claritin) 10 MG tabletIndication s:Allergic rhinitis, unspecified seasonality, unspecified trigger TAKE 1 TABLET BY MOUTH EVERY DAY 90 tablet 1 5 Active Hydrocortisone, Perianal, (Preparation H) 1 % creamIndications :Hemorrhoids, unspecified hemorrhoid type Apply to anal area bid prn 30 g 2 5 Active Active Problems Problem Noted Date Diagnosed Date Elevated LDL cholesterol level 07/20/2025 Overview (07/20/2025): Lab Results Component Value Date CHOL 163 01/29/2024 TRIG 90 01/29/2024 HDL 45 01/29/2024 LDLCHOLCAL 100 (H) 01/29/2024 -continue lifestyle modification -ordered repeat FLP and HFP 07/20/25 Assessment & Plan (07/20/2025 11:44 AM EDT): Lab Results Component Value Date CHOL 163 01/29/2024 TRIG 90 01/29/2024 HDL 45 01/29/2024 LDLCHOLCAL 100 (H) 01/29/2024 -continue lifestyle modification -ordered repeat FLP and HFP 07/20/25 Orders: Hepatic Function Panel; Future Lipid Panel, Standard; Future Class 3 severe obesity due t o excess calories with serious comorbidity and body mass index (BMI) of 45.0 to 49.9 in adult 02/22/2025 Overview (02/22/2025): Discussed weight, diet, exercise with patient in relation to health conditions. Used motivational interviewing to illicit change talk and established initial goals with patient. Assessment & Plan (07/20/2025 11:44 AM EDT): Discussed weight, diet, exercise with patient in relation to health conditions. Used motivational interviewing to illicit change talk and established initial goals with patient. Orders: TSH with Reflex to Free T4; Future Hemoglobin A1c; Future Assessment & Plan (02/22/2025 5:11 PM EDT): Discussed weight, diet, exercise with patient in relation to health conditions. Used motivational interviewing to illicit change talk and established initial goals with patient. Grief reaction 02/22/2025 Overview (07/20/2025): 02/23/24 had acute grief reaction due to loss of her best friend. Pt has a supportive and good coping mechanism. No suicidal or homicidal ideation. She declines medication at this time but if she changes her mind she will call us and we will start lowest dose. - continue her lorazepam 0.5 which which is taking one-fourth tab at night PRN, and she knows she can call for refills. - no longer able to see her therapist due to insurance. She's going to reach out to [facility], where they have therapy services in Danish Sign Language. -03/2025 reports feeling better now, will reach out if she wants a therapist. Assessment & Plan (05/05/2025 12:18 PM EDT): Acute grief reaction due to loss of her best friend. Pt has a supportive and good coping mechanism. No suicidal or homicidal ideation. She declines medication at this time but if she changes her mind she will call us and we will start lowest dose. - continue her lorazepam 0.5 which which is taking one-fourth tab at night PRN, and she knows she can call for refills. - no longer able to see her therapist due to insurance. She's going to reach out to [facility], where they have therapy services in Danish Sign Language. -follow-up in 1 month. 03/17/25 -improved 05/05/25 Assessment & Plan (03/17/2025 3:46 PM EDT): Acute grief reaction due to loss of her best friend. Pt has a supportive and good coping mechanism. No suicidal or homicidal ideation. She declines medication at this time but if she changes her mind she will call us and we will start lowest dose. - continue her lorazepam 0.5 which which is taking one-fourth tab at night PRN, and she knows she can call for refills. - no longer able to see her therapist due to insurance. She's going to reach out to [facility], where they have therapy services in Danish Sign Language. -follow-up in 1 month. 03/17/25 Assessment & Plan (02/22/2025 5:10 PM EDT): Acute grief reaction due to loss of her best friend. Pt has a supportive and good coping mechanism. No suicidal or homicidal ideation. She declines medication at this time but if she changes her mind she will call us and we will start lowest dose. - continue her lorazepam 0.5 which which is taking one-fourth tab at night PRN, and she knows she can call for refills. She is in contact with her therapist and will let me know if there's anything else she needs. She may be applying for FMLA in the short term, as it has been very difficult for her to concentrate, and I've asked her to bring those papers to our medical records. Pap smear for cervical cancer screening 11/25/19 Overview (07/20/2025): 2019 NILM, HPV neg 11/25/24 NILM, HPV neg Assessment & Plan (11/25/2024 11:18 AM EST): [...] 20 MG EC 11/25/24 Assessment & Plan (07/20/2025 11:44 AM EDT): Suspect new onset GERD. Reports symptoms of [...] 12 months -[facility] [place]. -On Vitamins currently. Assessment & Plan (11/25/2024 11:18 AM EST): -pt does desire within the next 12 months -Follows with [facility] [place]. -On Vitamins currently. Allergic 11/25/2024 Overview (11/25/2024): Has known allergies and needs refill of EpiPen. -refilled EPINEPHrine (Epipen) 0.3 MG/0.3ML injection 11/25/24 Assessment & Plan (11/25/2024 11:16 AM EST): Has known allergies and needs refill of EpiPen. -refilled EPINEPHrine (Epipen) 0.3 MG/0.3ML injection 11/25/24 Screening mammogram for breast cancer 11/25/2024 Overview (04/26/2025): Mammogram ordered 1/31/25 Left abnormal mammogram call back 04/19/25 BIRADS 1 negative mammo and US Assessment & Plan (11/25/2024 11:18 AM EST): [...] -controlled with current medication Tobacco dependence syndrome 08/14/202307/27 Overview (11/25/2024): Use to smoke 5 cig per day -Quit february 2024. Assessment & Plan (07/20/2025 11:44 AM EDT): Use to smoke 5 cig per day -Quit february 2024. Assessment & Plan (11/25/2024 11:03 AM EST): Use to smoke 5 cig per day -Quit february 2024. Assessment & Plan (08/31/2023 11:49 AM EST): -5 cig per day Other specified health status 08/14/2023 Overview (07/20/2025): -next comprehensive annual evaluation due after 07/20/26 -eye care facilitated by Prem Garcia. -dental home is [facility] - Health care proxy paperwork provided to the patient 01/29/24, filed 11/25/24 Assessment & Plan (07/20/2025 11:44 AM EDT): -next comprehensive annual evaluation due after 07/20/26 -eye care facilitated by Prem Garcia. -dental home is [facility] - Health care proxy paperwork provided to [...] minimally improved. She would like to see [facility]. Referral done 08/2022. Assessment & Plan (08/31/2023 11:49 AM EST): She saw [facility] and had an injection and PT. Sx's minimally improved. She would like to see [facility]. Referral done 08/2022. Anxiety 11/08/2018 08/14/2023 Overview (03/17/2025): -on clonazepam 0.5mg and take as need Assessment & Plan (07/20/2025 11:44 AM EDT): -on clonazepam 0.5mg and take as need Assessment & Plan (05/05/2025 12:18 PM EDT): Improved, continue on clonazepam 0.5mg and take as need Assessment & Plan (03/17/2025 3:46 PM EDT): -on clonazepam 0.5mg and take as need Assessment & Plan (08/31/2023 11:48 AM EST): -on clonazepam 0.5mg and take as need Bilateral deafness 11/08/2018 08/14/2023 Overview (08/14/2023): -cloth drier needed for all speciality visits Assessment & Plan (07/20/2025 11:44 AM EDT): -cloth drier needed for all speciality visits Assessment & Plan (11/25/2024 11:03 AM EST): -cloth drier needed for all speciality visits Assessment & Plan (08/31/2023 11:48 AM EST): -cloth drier needed for all speciality visits HSP (Henoch Schonlein purpura) 11/08/2018 1 Overview (08/14/2023): 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 request old records from [facility] 56. referral to rheumatology given musculoskeletal symptoms. Appointment date is February -follow up next week via Televisit -Will follow up in 3 weeks. 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 Baseline labs obtained 12/29/2020 revealed UA with 5-9 RBC and normal Creatinine of 0.80. Pt saw Dr. Torey Duggan in office 12/27/2020. Rash improved and Labs 01/18 with improved Cr and UA 1-4 RBC. 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 request old records from [facility] 56. referral to rheumatology given musculoskeletal symptoms. Appointment date is February -follow up next week via Televisit -Will follow up in 3 weeks. IgA nephropathy 11/08/2018 08/14/2023 Assessment & Plan (07/20/2025 11:44 AM EDT): Orders: Albumin, Random Urine W/Creatinine; Future Basic Metabolic Panel; Future Steatosis of liver 11/08/2018 08/14/2023 Overview (07/20/2025): Lab Results Component Value Date TOTALBILIRUB 0.3 01/29/2024 AST 15 01/29/2024 ALT 16 01/29/2024 ALT 18 09/17/2022 ALP 80 01/29/2024 FERRITIN 24 11/25/2024 -ordered repeat HFP 07/20/25 Assessment & Plan (07/20/2025 11:44 AM EDT): Lab Results Component Value Date TOTALBILIRUB 0.3 01/29/2024 AST 15 01/29/2024 ALT 16 01/29/2024 ALT 18 09/17/2022 ALP 80 01/29/2024 FERRITIN 24 11/25/2024 -ordered repeat HFP 07/20/25 Resolved Problems Problem Noted Date Diagnosed Date Resolved Date Dietary counseling 02/22/2025 Assessment & Plan (02/22/2025 5:10 PM EDT): Dietary Recommendations: Fruits, vegetables, whole grains, protein foods, and fat-free or low-fat dairy products are healthy choices. Eat different types of protein foods in your diet. This can include seafood, lean meats, poultry, beans, peas, lentils, nuts, seeds, soy products, and eggs. Limit foods and beverages higher in added sugars, saturated fat, and sodium. Exercise counseling 02/22/2025 04/26/20 Assessment & Plan (02/22/2025 5:10 PM EDT): Exercise Recommendations: At least 150 minutes of moderate-intensity physical activity per week, or an equivalent combination of moderate- and vigorous-intensity activity. Chronically on benzodiazepine therapy 08/24/2024 11/08/2024 Tinea pedis of both feet 01/29/2024 Assessment & Plan (01/29/2024 10:58 AM EDT): - Start Clotrimazole 1% BID. Urinary tract infection without hematuria 08/31/2023 11/08/2024 Overview (08/31/2023): -resolved Assessment & Plan (08/31/2023 12:24 PM EST): -resolved Encounters Date Type Department Care Team Description 07/20/2025 10:00 AM EDT Office Visit [facility] [address] [place] [phone] Gloria Irizarry MD Elevated LDL cholesterol level (Primary Dx); Gastroesophageal [...] immunization; Bilateral deafness; Other specified health status 07/20/2025 Results Follow-Up [facility] [address] [place] [phone] Gloria Irizarry MD XR Foot 3+ Views Right 07/20/2025 Travel 07/19/2025 Telephone [facility] [address] [place] [address] Sadie Robertson MA 07/13/2025 Patient Outreach [facility] [address], [place] [phone] Gloria Irizarry MD Pre-visit Planning (SDOH unable to reach [facility]) 05/05/2025 11:30 AM EDT Telemedicine [address] [phone] Gloria Irizarry MD Grief reaction (Primary Dx); Anxiety; Palpitations 05/04/2025 Travel 05/04/[address] [phone] Gloria Irizarry MD chart prep 04/27/2025 Refill [facility] [address] [place] [phone] [place], [place], [employer] JUDGE Allergic rhinitis, unspecified seasonality, unspecified trigger 04/21/2025 Results Follow-Up [facility] [address] [place] [phone] Catalina Davis MD BI US Breast Limited Left 04/19/2025 Patient Outreach [facility] [address], [place] [phone] Gloria Irizarry MD Pre-visit Planning (SDOH unable to reach [facility]) from Last 3 Months Immunizations Immunization Administration Dates Next Due Hep A, Unspecified 09/25/2014,03/28/2014 Hep B, adult 01/29/2024,01/14/2019,12/10/2018 Influenza High-dose Quadriva lent Preservative Free 11/13/2021 Influenza injectable quadriv alent preservative free 09/17/2022,08/11/2020 Influenza, IIV3, injectable 07/29/2019, 4 Influenza, Unspecified 07/29/2019 Influenza, seasonal, injecta ble, preservative free 07/20/2025,11/25/2024,07/29/2019,08/12,09/19/2015 MMR 01/14/2019 Pfizer Covid-19 Vaccine 12+ 01/29/2024,,03/22/2021 [...] Q2 Not on file 11/25/2024 Comments Unknown Intention Date Recorded Wants to become (finding) 02/22 Sex and Gender Information Value Date Recorded [...] oz) 07/20/2025 10:18 A M EDT Height 161.3 cm (5' 3.5 ) 11/25/2024 10:46 AM ES T Body Mass Index 45.37 11/25/2024 10:46 AM EST Plan of Treatment Health Maintenance Due Date Last Done Comments HPV Vaccines (1 - 3-dose series) 1999 Alcohol/Substance Use Screening 11/25/2025 11/25/2024 Depression Screening 11/25/2025 11/25/2024, 11/25/19 SDOH Screening 11/25/2025 11/25/2024 Family Planning (PISQ) 02/22/2026 02/22/2025 Disability Screening 05/04/2026 05/04/2025 COVID-19 Vaccine ( season) 2026 01/29/2024, 09/22/2022, 04/12/2021, Additional history exists Postponed from 06/26/2025 (Patient Refused) Diabetes: Hemoglobin A1C 07/20/2026 07/20/2025, 08/27 Tobacco Screening 07/20/2026 07/20/2025 Mammogram 04/19/2027 04/19/2025, 02/24, 04/19/2024 Cervical Cancer Screening 11/25/2029 HPV/Cotest 11/25/2029 11/25/2024, 12/25, 01/14/2019 Pap Smear 11/25/2029 11/25/2024, 01/14/2019 Lipid Panel 07/20/2030 07/20/2025, 04/0 02/2024, 09/17/2022 DTaP/Tdap/Td Vaccines (2 - Td or Tdap) 09/17/2032 09/17/2022 Zoster Vaccines (1 of 2) 2034 RSV Patients and Patients Aged 60 years or older (1 - 1-dose 75+ series) 2059 Hepatitis A Vaccines Completed 09/25/2014, 03/28/20 14 Pneumococcal Vaccine: Pediatrics (0 to 5 Years) and At-Risk Patients (6 to 49) Years Aged Out 09/30/2017 No longer eligible based on patient's age to complete this topic Hepatitis C Screening Completed 12/29/2020 HIV Screening Completed 09/17/2022 Hepatitis B Vaccines Completed 01/29/2024, 01/14/2019, 12/10/2018 Influenza Vaccine Completed 07/20/2025, , 09/17/2022, Additional history exists HIB Vaccines Aged Out No longer eligi ble based on patient's age to complete this topic IPV Vaccines Aged Out No longer eligi ble based on patient's age to complete this topic Meningococcal B Vaccine Aged Out No l onger eligible based on patient's age to complete [...] Comments XR FOOT 3+ VIEWS RIGHT Routine 12:30 PM EDT Chronic heel pain, right BASIC METABOLIC PANEL Routine 07/20/2025 11:20 AM EDT IgA nephropathy HEMOGLOBIN A1C Routine 07/20/2025 11:20 AM EDT Class 3 severe obesity due to excess calories with serious comorbidity and body mass index (BMI) of 45.0 to 49.9 in adult LIPID PANEL, STANDARD Routine 07/20/2025 11:20 AM EDT Elevated LDL cholesterol level HEPATIC FUNCTION PANEL Routine 11:20 AM EDT Elevated LDL cholesterol level ALBUMIN, RANDOM URINE W/CREATININE Routine 07/20/2025 11:20 AM EDT IgA nephropathy TSH W/REFLEX TO FT4 Routine 07/20/2025 1 1:20 AM EDT Class 3 severe obesity due to excess calories with serious comorbidity and body mass index (BMI) of 45.0 to 49.9 in adult BI MAMMOGRAM DIAGNOSTIC TOMOSYNTHESIS LEFT Routine 04/19/2025 Abnormal mammogram HPV DNA, LOW/HIGH RISK Routine 11:25 AM EST PAP SMEAR Routine 11/25/2024 11:25 AM EST Pap smear for cervical cancer screening Routine screening for STI (sexually transmitted infection) HIV 1/2 ANTIGEN/ANTIBODY, FOURTH GENERATION W/RFL Routine 09/17/2022 10:35 AM EST ZZZ HISTORICAL HEPATITIS B SURFACE ANTIBODY Routine 12/29/2020 11:00 AM EST from Last 3 Months or Most Recently Relevant to Health Maintenance Results * XR Foot 3+ Views Right (07/20/2025 12:30 PM EDT) Anatomical Region Laterality Modality Lower Extremities, Foot Right Radiogra phic Imaging 07/20/2025 12:3 0 PM EDT Narrative 07/20/2025 12:40 PM EDT [facility] [address] [place] [address] XRay Report Signed Patient: Susie Blackwood MR#: [id number] : 1985 Acct:[id number] Age/Sex: 39 / F ADM Date: 07/20/25 Loc: [facility] Attending Dr: Gloria Irizarry MD Ordering Physician: Gloria Irizarry MD Date of Service: 07/20/25 Procedure(s): XR foot RT min 3V Accession Number(s): [id number] cc: Gloria Irizarry MD Reason for Exam: [...] Terrance Deal MD 07/20/2025 12:37 PM EDT Dictated By: Terrance Deal MD Signed By: <Electronically signed by Terrance Deal MD in OV> 07/20/25 1237 DD/ 1230 TD/TT: 07/20/25 1232 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: Procedure Note Donotuseinterpreter, Image - 07/20/2025 [facility] [address] [place] [address] XRay Report Signed Patient: Susie Blackwood MMR#: [id number] : 1985Acct:[id number] Age/Sex: 39 / FADM Date: 07/20/25 Loc: [facility] Attending Dr: Gloria Irizarry MD Ordering Physician: Gloria Irizarry MD Date of Service: 07/20/25 Procedure(s): XR foot RT min 3V Accession Number(s): [id number] cc: Gloria Irizarry MD Reason for Exam: [...] 07/20/25 1237 DD/ 1230 TD/TT: 07/20/25 1232 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: Gloria Irizarry MD IMG XR PROCEDURES Final Re sult * TSH with Reflex to Free T4 (07/20/2025 11:20 AM EDT) TSH reflex Free T4 1.45 0.32 - 4.0 uIU/mL [facility] Blood Venous blood specimen / Unknown 07/20/2025 11:20 AM EDT 07/20/2025 1:06 PM EDT Gloria Irizarry MD LAB BLOOD ORDERABLES Final Result [facility] [address] [place] [phone] * (ABNORMAL) Albumin, Random Urine W/Creatinine (07/20/2025 11:20 AM EDT) Creatinine, Urine 66.09 mg/dL [facility] Microalbumin Urine 37.0 mg/L H [facility] Microalbum Creatinine Ratio Ur 55.9(H) <30 ug/mg cr [facility] Comment:Albumin/Creatinine R atio Reference Ranges: Normal: < 30 ug/mg creatinine Microalbuminuria: 30 - 300 ug/mg creatinineClinical Albuminuria: > 300 ug/mg creatinine Urine 07/20/2025 11:2 0 AM EDT 07/20/2025 1:06 PM EDT Gloria Irizarry MD LAB URINE ORDERABLES Final Result Performing Organization Address [facility] Co de Phone Number [facility] [address] [place] [phone] * Hemoglobin A1c (07/20/2025 11:20 AM EDT) Hemoglobin A1c 5.7 <6.0 % [facility] Comment:Hemoglobin A1C Refer ence Range Adults: 4.8 - 6.0 % Non diabetic: < 6.0 % Goal: < 7.0 %Additional Action Suggested: > 8.0 %Note: Hemoglobin A1c results are invalid for patients with abnormal amounts of HbF. Blood transfusions may impact the HbA1c concentration in the patient sample. Estimated Average Glucose 117 mg/dL [facility] Comment:eAG = Estimated ave rage glucose which is %A1C expressed asaverage glucose, using the formula of the [id number] Glucose study (ADAG), Diabetes Care, Vol.31,#8,May. 2007 Blood Venous blood specimen / Unknown 07/20/2025 11:20 AM EDT 07/20/2025 1:06 PM EDT Gloria Irizarry MD LAB BLOOD ORDERABLES Final Result Performing Organization Address [facility] Co de Phone Number [facility] [address] [place] [phone] * Hepatic Function Panel (07/20/2025 11:20 AM EDT) Bilirubin, Total 0.3 0.0 - 1.0 mg/dL [facility] Bilirubin, Direct 0.2 0.0 - 0.5 mg/dL [facility] Aspartate Amino Transferase 30 5 - 31 U/L [facility] Alanine Aminotransferase 20 0 - 31 U/L [facility] Total Protein 7.2 6.5 - 8.0 g/dL [facility] Albumin Level 3.7 3.5 - 5.0 g/dL [facility] Alkaline Phosphatase 68 39 - 117 U/L [facility] Blood Venous blood specimen / Unknown 07/20/2025 11:20 AM EDT 07/20/2025 1:06 PM EDT Gloria Irizarry MD LAB BLOOD ORDERABLES Final Result [facility] [address] [place] [phone] * Lipid Panel, Standard (07/20/2025 11:20 AM EDT) Triglycerides 68 <150 mg/dL [facility] Comment:Desirable Triglyceri de: less than 150 mg/dLBorderline High Triglyceride 150-199 mg/dLHigh Triglyceride: 200-499 mg/dLVery High Triglyceride: greater than or equal to 5OO mg/dL Cholesterol 142 <200 mg/dL [facility] Comment:Desirable Cholestero l: less than 200 mg/dLBorderline High Cholesterol: 200-239 mg/dLHigh Cholesterol: greater than 239 mg/dL LDL Cholesterol Calculated 82 <100 mg/dL [facility] Comment:Desirable LDL: less than 100 mg/dLNear Optimal/Above Optimal LDL: 110- 129 mg/dLBorderline High LDL: 130-159 mg/dLHigh LDL: 160-189 mg/dLVery High LDL: greater than or equal to 190 mg/dL HDL Cholesterol 47 >40 mg/dL [facility] Comment:Desirable HDL: great er than 40 mg/dL Note: This HDL assay may give artificially low results in patients with liver disease. Blood Venous blood specimen / Unknown 07/20/2025 11:20 AM EDT 07/20/2025 1:06 PM EDT Gloria Irizarry MD LAB BLOOD ORDERABLES Final Result Performing Organization Address [facility] Co de Phone Number [facility] [address] [place] [phone] * (ABNORMAL) Basic Metabolic Panel (07/20/2025 11:20 AM EDT) Sodium 141 135 - 145 mmol/L [facility] Potassium 4.6 3.3 - 5.1 mmol/L [facility] Chloride 108 96 - 108 mmol/L [facility] Carbon Dioxide 26 22 - 29 mmol/L [facility] Anion Gap 12 12 - 20 [facility] Urea Nitrogen (BUN) 8(L) 9 - 16 mg/dL [facility] Creatinine, Serum 0.69 0.5 - 1.4 mg/dL [facility] Estimated Glomerular Filt Rate >60 [facility] Comment:Chronic Kidney Disea se: Estimated GFR < 60 mL/min/[id number] Kidney Disease: Estimated GFR < 15 mL/min/1.73m2 Glucose 91 60 - 115 mg/dL [facility] Calcium 8.8 8.4 - 10.2 mg/dL [facility] Blood Venous blood specimen / Unknown 07/20/2025 11:20 AM EDT 07/20/2025 1:06 PM EDT Gloria Irizarry MD LAB BLOOD ORDERABLES Final Result Performing Organization Address [facility]/ZIP Co de Phone Number [facility] [address] [place] [phone] * BI Mammogram Diagnostic Tomosynthesis Left (04/19/2025) Anatomical Region Laterality Modality Breast Left Mammography Catalina Millard MD IMG BI PROCEDURES Final Result * HPV DNA, Low/High Risk (11/25/2024 11:25 AM EST) HPV High Risk Negative Negative [facility] HPV Genotype 16 Negative Negative [facility] HPV Genotype 18 Negative Negative [facility] Comment:HPV testing performe d at [facility] (CLIA#[id number]), [address] [place] [address].Testing for HPV was performed using the Emiliana BRITNEY 6800system. The presence of HPV in the female genital tract isassociated with a number of diseases, including cervicalcarcinoma. The HPV DNA high risk pool tests for HPV 31, 33,35, 39, 45, 51, 52, 56, 58, 59, 66 and 68. The testing forHPV 16 and 18 genotypes has also been performed. A positiveresult indicates detection of nucleic acid sequences fromone or more subtypes, whereas a negative result indicatessuch sequences were not detected. 11/25/2024 11:2 5 AM EST 11/28/2024 8:55 AM EST Gloria Irizarry MD LAB BLOOD ORDERABLES Final Result [facility] [address] [place] [phone] * Pap Smear (11/25/2024 11:25 AM EST) Swab Cervix uteri structure / Unknown 11/25/2024 11:25 AM EST 11/28/2024 8:55 AM EST Narrative [facility] - 12/06/2024 12:30 PM EST ----- ------- Name: Susie Blackwood Age/Sex: 39/F : 1985 Unit#: [id number] Attend Dr: Gloria Irizarry MD Re11/28/24 Status: DEP REF Location: [facility] Disch: ----- ------- SPEC : [id number] RECD: 11/28/24 STATUS: ALLISON POP NUM: [id number] ROSSY: 11/25/24-[address] [facility] [address]: Gloria Irizarry MD ENTERED: 11/28/24 SP TYPE: Pap Smr OT DR: ORDERED: Pap Smear Interpretation Satisfactory for evaluation. Negative for intraepithelial lesion or malignancy. HPV High Risk: Negative HPV Genotyping 16: Negative HPV Genotyping 18: Negative Clinical Information LMP: Unknown date Previous PAP test: 2019, nilm HPV neg Material Received ThinPrep-Cervical ----- ------- Signed (signature on file) JARED England (ASCP) 12/06/24 1230 ----- ------- END OF REPORT Gloria Irizarry MD LAB CYTOLOGY ORDERABLES [facility] Result [facility] [address] [place] [address] [phone] * HIV 1/2 ANTIGEN/ANTIBODY,FOURTH GENERATION W/RFL (09/17/2022 10:35 AM EST) HIV-1/2 ANTIGEN AND ANTIBODIES, 4TH GENERATION W/ REFLEX NON-REACT TIKA NON-REACT TIKA [facility] Comment: HIV-1 antigen and HIV-1/HIV-2 antibodies were not detected. There is no laboratory evidence of HIV infection. PLEASE NOTE: This information has been disclosed to you from records whose confidentiality may be protected by state law. If your state requires such protection, then the state law prohibits you from making any further disclosure of the information without the specific written consent of the person to whom it pertains, or as otherwise permitted by law. A general authorization for the release of medical or other information is NOT sufficient for this purpose. For additional information please refer to http://education.Ampulse/faq/TGN047 (This link is being provided for informational/ educational purposes only.) The performance of this assay has not been clinically validated in patients less than 2 years old. 09/17/2022 10:3 5 AM EST us Gloria Irizarry MD LAB BLOOD ORDERABLES Final Result Performing Organization Address [facility] Co de Phone Number CONVERT[facility]GACY LABS [...] ORDERABLE LABS Final Result Performing Organization Address [facility]/ZIP Co de Phone Number [facility] [address] from Last 3 Months or Most Recently Relevant to Health Maintenance Insurance [employer] OPEN ACCESS [address] [place] [address] Advance Directives Documents on File Type Date Recorded Patient Cancer Researcher Expl anation Advance Directives and Living Will 11/25/2024 Health Care Proxy 11/25/24 Care Teams Injection Specialist Relationship Specialty Start Date End Date [place], MD Gloria [address] [place] [address] PCP - General Family Medicine 02/10/20 [facility] GI [facility] [address] [address] Gastroenterology 07/20/25
--- OUTSIDE RECORDS SUMMARY | 2025-07-20 15:26 | XMS_ITS | Encounter Summary ---
Author Organization [employer] Address [address] [place] [address] Care Team Providers Care Chief Technologist Name Role Phone Gloria Irizarry MD Primary Care Provider +1- [phone] Encounter Details Date Type Department Care Team ([facility] st Contact Info) Description 11/11/2022 Abstract [facility] [address] [place], [place] [phone] Gloria Irizarry MD [address] [place], [place] [phone] Social History Tobacco Use Types Packs/Day Years [...] AM EDT) Swab Cervical swab / Unknown us Historical Provider LAB MICROBIOLOGY - GENERA L ORDERABLES Final Result [facility] [address] [place] [phone] [phone] * Pap Smear (01/14/2019 12:00 AM EDT) Swab us Gloria Irizarry MD LAB CYTOLOGY ORDERABLES Fi nal Result [facility] [address] [place] [address] [phone] documented in this encounter Visit Diagnoses Not on filedocumented in this encounter Care Teams Chief Technologist Relationship Specialty Start Date End Date Gloria Irizarry MD [address] [place] [address] PCP - General Family Medicine 02/10/20 [facility] [place] [address] [place] [address] Gastroenterology 07/20/25 documented as of this encounter
--- OUTSIDE RECORDS SUMMARY | 2025-07-20 15:26 | XMS_ITS | Encounter Summary ---
Author Organization [employer] Address [address] [place] [address] Care Team Providers Care Coal Cager Name Role Phone Gloria Irizarry MD Primary Care Provider +1- [phone] Encounter Details Date Type Department Care Team ([facility] st Contact Info) Description 10/22/2023 Telephone [facility] MEDICINE 230 [place], [place] [phone] Gloria Irizarry MD [address] [place], [place] [phone] Social History Tobacco Use Types Packs/Day Years [...] through cell phone but pt is deaf. Stencil Cutter Machine does not seeany documentation. Please contact pt through video relay at [phone] documented in this encounter Plan of Treatment Not on file documented as of this encounter Visit Diagnoses Not on filedocumented in this encounter Care Teams Coal Cager Relationship Specialty Start Date End Date Gloria Irizarry MD [address] [place] [address] PCP - General Family Medicine 02/10/20 [place] [address] [place] [address] Gastroenterology 07/20/25 documented as of this encounter
--- OUTSIDE RECORDS SUMMARY | 2025-07-20 15:27 | XMS_ITS | Encounter Summary ---
Author Organization [employer] Address [address] [place] [address] Care Team Providers Care Wireless Store Manager Name Role Phone Gloria Irizarry MD Primary Care Provider +1- [phone] Reason for Visit * Reason Comments Med Refill Encounter Details Date Type Department Care Team ([facility] st Contact Info) Description 11/08/2023 Refill [facility] MED[facility] [address] [place] [address] Gloria Irizarry MD [address] [place] [address] Allergic rhinitis, unspecified seasonality, unspecified trigger Social [...] Diagnosis Allergic rhinitis, unspecified seasonality, unspecified trigger documented in this encounter Care Teams Wireless Store Manager Relationship Specialty Start Date End Date Gloria Irizarry MD 230 [place] [address] PCP - General Family Medicine 02/10/20 [facility] [place] [address], [place] [address] Gastroenterology 07/20/25 documented as of this encounter
--- OUTSIDE RECORDS SUMMARY | 2025-07-20 15:27 | XMS_ITS | Encounter Summary ---
Author Organization [employer] Address [address] [place] [address] Care Team Providers Care Cell Assembly Pinner Name Role Phone Gloria Irizarry MD Primary Care Provider +1- [phone] Reason for Visit * Reason Onset Date Comments Med Refill 04/30/2023 Encounter Details Date Type Department Care Team (Late st Contact Info) Description 04/30/2023 Refill [facility] MED[facility]INE [address] [place] [address] Gloria Irizarry MD 230 [place] [address] Anxiety Social History Tobacco Use Types Packs/Day [...] Visit Diagnoses Diagnosis Anxiety Anxiety state, unspecified documented in this encounter Care Teams Cell Assembly Pinner Relationship Specialty Start Date End Date Gloria Irizarry MD 230 [place] [address] PCP - General Family Medicine 02/10/20 [facility] [place] [address], [place] [address] Gastroenterology 07/20/25 documented as of this encounter
--- OUTSIDE RECORDS SUMMARY | 2025-07-20 15:27 | XMS_ITS | Encounter Summary ---
Author Organization [employer] Address [address] [facility] 7 [place] [address] Care Team Providers Care Senior Enlisted Advisor Name Role Phone Glroia Irizarry MD Primary Care Provider +1- [phone] Encounter Details Date Type Department Care Team ([facility] st Contact Info) Description 12/06/2024 Orders Only [facility] MEDICINE 230 [place], [place] [phone] Gloria Irizarry MD 230 [place], [place] [phone] Social History Tobacco Use Types Packs/Day Years [...] documented as of this encounter Care Teams Senior Enlisted Advisor Relationship Specialty Start Date End Date Gloria Irizarry MD [address] [place] [address] PCP - General Family Medicine 02/10/20 [facility] GI [facility] GI [address] [place] [address] Gastroenterology 07/20/25 documented as of this encounter
--- OUTSIDE RECORDS SUMMARY | 2025-07-20 15:27 | XMS_ITS | Encounter Summary ---
Author Organization [employer] Address [address] [place] [address] Care Team Providers Care Cashier Courtesy Booth Name Role Phone Gloria Irizarry MD Primary Care Provider +1- [phone] Reason for Visit * Reason Onset Date Comments Med Refill 07/15/2023 Encounter Details Date Type Department Care Team ([facility] st Contact Info) Description 07/15/2023 Telephone [facility] MEDICINE 230 [place], [place] [phone] Gloria Irizarry MD 230 [place], [place] [phone] Med Refill Social History Tobacco Use Types [...] [facility] [place] due to current pharmacy having medication on back order. Patient is requesting a call back to inform her where medication will be sent. PCP Dr. Irizarry documented in this encounter Plan of Treatment Not on file documented as of this encounter Visit Diagnoses Not on filedocumented in this encounter Care Teams Cashier Courtesy Booth Relationship Specialty Start Date End Date Gloria Irizarry MD [address] [place] [address] PCP - General Family Medicine 02/10/20 [facility] GI [address] [place] [address] Gastroenterology 07/20/25 documented as of this encounter
--- OUTSIDE RECORDS SUMMARY | 2025-07-20 15:27 | XMS_ITS | Encounter Summary ---
Author Organization [employer] Address [address] [place] [address] Care Team Providers Care Planning Feeder Name Role Phone Gloria Irizarry MD Primary Care Provider +1- [phone] Reason for Visit * Reason Onset Date Comments Med Refill 04/13/2023 Encounter Details Date Type Department Care Team (Late st Contact Info) Description 04/13/2023 Refill [facility] MEDICINE [address] [place] [address] Gloria Irizarry MD 230 [place] [address] Anxiety Social History Tobacco Use Types Packs/Day [...] unspecified documented in this encounter Care Teams Planning Feeder Relationship Specialty Start Date End Date Gloria Irizarry MD [address] [place] [address] PCP - General Family Medicine 02/10/20 [facility] GI [address], [place] [address] Gastroenterology 07/20/25 documented as of this encounter
--- OUTSIDE RECORDS SUMMARY | 2025-07-20 15:27 | XMS_ITS | Encounter Summary ---
Author Organization [facility] Address [address] [place] [address] Phone Care Team Providers Care Manufacturing Engineering Professor Name Role Phone Deandra Castellanos MD, MPH Unavailable +1- [phone] Deandra Castellanos MD, MPH Primary Care Provid er Encounter Details Date Type Department Care Team (Late st Contact Info) Description 03/04/2022 Procedure Pass [facility], Ct Scan - [address] [address] Social History Tobacco Use Types Packs/Day Years Used Date Smoking Tobacco: Every Day Cigarettes Smokeless Tobacco: Never Alcohol Use Standard Drinks/Week Comments Never 0 (1 standard drink = 0.6 oz pur e alcohol) Child or Family Care Answer Date Record ed Do you have problems with on e of the following making it difficult for you to work, study, or receive health care? No 12/03/2021 Education Answer Date Recorded Are you interested in help w ith more adult education (for example, completing high school, GED, job training, learning the Slovenian language, technical skills, or developing parenting skills)? No 12/03/2021 Food Answer Date Recorded Within the past [...] basis, and looking for work? 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 Wish to be (Past 1 Month) No 022 9:12 PM EDT Keshia Stringer RN 2. Non-Specific Active Suici erin Thoughts (Past 1 Month) No 03/04/2022 9:12 PM EDT Darian Stringer RN 6. Suicidal Behavior (Lifetime) No 9:12 PM EDT Keshia Stringer RN documented as of this encounter Plan of Treatment Not on file documented as of this encounter Visit Diagnoses Not on filedocumented in this encounter Additional Health Concerns Infection Onset Date Last Indicated Resolved Time C. diff 03/04/2022 03/04/2022 04/03/2022 1:21 AM EDT Assessment Noted Time PHQ-2 Depression Total Score: 0 12/03/19 3:19 PM EST documented as of this encounter Care Teams Manufacturing Engineering Professor Relationship Specialty Start Date End Date Deandra Castellanos MD, MPH [address] [address] [email or web address] PCP - General Family Medicine 12/04/21 12/01/24 Deandra Castellanos MD, MPH [address] [address] [email or web address] Insurance Assigned Provider 11/02/21 09/05/23 documented as of this encounter Additional Source Comments The information contained in this document represents components of the legal health record. It is not the complete legal health record.[facility]
--- OUTSIDE RECORDS SUMMARY | 2025-07-20 15:28 | XMS_ITS | Encounter Summary ---
Author Organization [employer] Address 75 [facility] [address] [address] Care Team Providers Care Admissions Counselor Name Role Phone Gloria Irizarry MD Primary Care Provider +1- [phone] Reason for Visit * Reason Comments Med Refill Encounter Details Date Type Department [facility] Description 01/13/[address] [facility] MED[facility]INE 230 [place], [place] [phone] Gloria Irizarry MD 230 [place], [place] [phone] Social History Tobacco Use Types Packs/Day Years [...] documented as of this encounter Care Teams Admissions Counselor Relationship Specialty Start Date End Date Gloria Irizarry MD [address] [place] [address] PCP - General Family Medicine 02/10/20 [facility] GI [facility] GI [address] [place] [address] Gastroenterology 07/20/25 documented as of this encounter
--- OUTSIDE RECORDS SUMMARY | 2025-07-20 15:28 | XMS_ITS | Clinical Summary ---
Author Organization [facility] Address [address] [place] [address] Care Team Providers Care Clinical Interviewer Name Role Phone Unavailable Primary Care Provider Unavailabl e Social History Tobacco Use Types Packs/Day Years Used Date Smoking Tobacco: Never Assessed Comments Unknown Sex and Gender Information Value Date Recorded Sex Assigned at Not on file Legal Sex Female 8:34 PM EST Gender Identity Not on file Sexual Orientation Not on file Plan of Treatment Health Maintenance Due Date Last Done Comments Breast Cancer Screening 1984 DTaP,Tdap,and Td Vaccines (1 - Tdap) 2003 Hepatitis B Vaccines (1 of 3 - 19+ 3-dose series) 2003 Cervical Cancer Screening: P ap Smear 2005 HIV Screening 11/20/2023 Hepatitis C Screening 11/20/2023 Social Influencers of Health Screening 11/20/2023 Depression Screening 10/26/2024 COVID-19 Vaccine ( - 2023-2 5 season) 2025 Influenza Vaccine (#1) 2025 RSV Immunization Adult Patie nts (1 - 1-dose 75+ series) 2059 HIB Vaccines Aged Out No longer eligi [...] and At-Risk Patients (6 to 49 Years) Aged Out No longer eligible b ased on patient's age to complete this topic RSV Immunization Patients Un naga 20 months Aged Out No longer eligible b ased on patient's age to complete this topic Varicella Vaccines Aged Out No longer eligible based on patient's age to complete this topic
--- OUTSIDE RECORDS SUMMARY | 2025-07-20 15:28 | XMS_ITS | Encounter Summary ---
Author Organization [employer] Address [address] [place] [address] Care Team Providers Care Undercover Cop Name Role Phone Gloria Irizarry MD Primary Care Provider +1- [phone] Reason for Visit * Reason Onset Date Comments Med Refill 01/13/2025 Encounter Details Date Type Department Care Team ([facility] st Contact Info) Description 01/13/2025 Refill [facility] MEDICINE 230 [place], [place] [phone] Gloria Irizarry MD 230 [place] [address] Allergic rhinitis, unspecified seasonality, unspecified trigger Social [...] your housing situation today? I have lorenza aleyda 11/25/[address] you li [...] seasonality, unspecified trigger documented in this encounter Additional Health Concerns Assessment Noted Time PHQ-9 Depression Total Score: 1 11/25/19 25 10:49 AM EST documented as of this encounter Care Teams Undercover Cop Relationship Specialty Start Date End Date Gloria Irizarry MD [address] [place] [address] PCP - General Family Medicine 02/10/[address] [address] Gastroenterology 07/20/25 documented as of this encounter
--- OUTSIDE RECORDS SUMMARY | 2025-07-20 15:28 | XMS_ITS | Encounter Summary ---
Author Organization [employer] Address 75 [facility] 7 [place] [address] Care Team Providers Care Ammonia Distiller Name Role Phone Gloria Irizarry MD Primary Care Provider +1- [phone] Encounter Details Date Type Department Care Team ([facility] st Contact Info) Description 12/26/2024 Orders Only [facility]INE 230 [place], [place] [phone] Gloria Irizarry MD 230 [place], [place] [phone] Social History Tobacco Use Types Packs/Day Years [...] documented as of this encounter Care Teams Ammonia Distiller Relationship Specialty Start Date End Date Gloria Irizarry MD [address] [place] [address] PCP - General Family Medicine 02/10/20 [facility] GI [facility] GI [address] [place] [address] Gastroenterology 07/20/25 documented as of this encounter
--- OUTSIDE RECORDS SUMMARY | 2025-07-20 15:28 | XMS_ITS | Encounter Summary ---
Author Organization [employer] Address [address] [address] Care Team Providers Care Ophthalmic Dispenser Name Role Phone Gloria Irizarry MD Primary Care Provider +1- [phone] Reason for Visit * Reason Comments Med Refill Encounter Details Date Type Department Care Team ([facility] st Contact Info) Description 01/12/2025 Refill [facility] MEDICINE 230 [place], [place] [phone] Gloria Irizarry MD 230 [place], [place] [phone] Vitamin D deficiency Social History Tobacco Use Types Packs/Day Years [...] as of this encounter Visit Diagnoses Diagnosis Vitamin D deficiency documented in this encounter Additional Health Concerns Assessment Noted Time PHQ-9 Depression Total Score: 1 11/25/19 25 10:49 AM EST documented as of this encounter Care Teams Ophthalmic Dispenser Relationship Specialty Start Date End Date Gloria Irizarry MD [address] [place] [address] PCP - General Family Medicine 02/10/20 [facility] GI [address] [place] [address] Gastroenterology 07/20/25 documented as of this encounter
== END 2025-07-20 11:04 | disposition home or self-care (01) ==
LOC: HO.HHCX 11:03
PROVIDERS: PCP Family Medicine; Visit Provider Family Medicine
DX: Z13.1 Encounter for screening for diabetes mellitus (principal); M79.671 Pain in right foot; G89.29 Other chronic pain; N02.B9 Other recurrent and persistent immunoglobulin A nephropathy; E78.00 Pure hypercholesterolemia, unspecified; E66.813 Obesity, class 3; Z68.42 Body mass index [BMI] 45.0-49.9, adult
CPT/HCPCS: 36415; 73630; 80048; 80061; 80076; 82043; 82570; 83036; 84443

== ENCOUNTER → 2025-07-20 11:31 | Outpatient (BNV) | payer OTHER, MEDICAID, SELFPAY | PROVIDERS: PCP Family Medicine; Visit Provider Radiology Diagnostic Radiology | DX: M77.31 Calcaneal spur, right foot (principal) | CPT/HCPCS: 73630 ==